=== PATIENT | male | born 1940 | race African-American/Black ===

== ENCOUNTER 2016-12-14 08:32 | Inpatient (IN) | payer MEDICARE, MEDICAID ==
[2016-12-14] MEDS ORDERED: Non-Formulary Item 1 EA (Omeprazole [Omeprazole] 20 MG) PO SCH (09:00)
[2016-12-14 09:37] VITALS: BP 153/87
[2016-12-14] MEDS ORDERED: Magnesium Hydroxide (MOM) 30 mL UDC PO PRN (16:48)
[2016-12-14] MEDS ORDERED: Maalox 30 mL Cup PO PRN (16:48)
[2016-12-14] MEDS ORDERED: Hydrocodone/APAP 5mg/325mg Tab PO PRN (16:48)
--- NOTE | 2016-12-14 16:58 | History and Physical ---
History of Present Illness - HPI Chief Complaint: ALOC HPI: 76 y/o Black male patient began to stutter. [id number] states that patient' s dementia is aslo worsening this week. 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 GI: Report: No Pertinent Hx Psych: Report: Schizophrenia Musculoskeletal: Report: No Pain Rheumatologic: Report: No pertinent Hx Infectious Disease: Report: Human Papilloma Virus Renal/: Report: No Pertinent Hx Endocrine: Report: Diabetes Dermatology: Report: No Pertinent Hx - Past Surgical History Past Surgical History: No pertinent Hx Family Medical History - Family Member Mother History Unknown: Yes Ethnicity: Non- Social History Alcohol: None Drugs: None Lives: Alone Domestic Violence: Negative Health Maintenance Health Maintenance: Cholesterol - Medications Home Medications: Home Medication Medication Instructions Recorded Type Acetaminophen [Tylenol] 650 mg PO Q4HR PRN #0 tab 11/23/15 Rx Al Hyd/Mg Hyd/Simethicone [Maalox] 30 ml PO Q4HR PRN #0 udc 11/23/15 Rx Albuterol Nebulizer 2.5mg/3mL 2.5 mg INH Q6HR PRN #0 11/23/15 Rx [Albuterol Neb UD*] Ascorbic Acid [Vitamin C] 500 mg PO DAILY #0 11/23/15 Rx Brimonidine 0.15% Ophth Marleen 1 drop EACH EYE HS #0 11/23/15 Rx [Alphagan 0.15% Ophth Soln] Collagenase [Santyl] 1 appl TP DAILY #0 appl 11/23/15 Rx Donepezil Hcl [Aricept] 10 mg PO HS #0 tab 11/23/15 Rx Escitalopram Oxalate [Lexapro] 10 mg PO DAILY #0 tab 11/23/15 Rx Lorazepam [Ativan] 0.5 mg PO Q4HR PRN #0 tab 11/23/15 Rx Multivitamin [Theragran] 1 tab PO DAILY #0 tab 11/23/15 Rx Pantoprazole [Protonix] 40 mg PO DAILY #0 11/23/15 Rx Simvastatin [Zocor*] 20 mg PO QPM #0 11/23/15 Rx Valsartan [Diovan] 160 mg PO BID #0 tab 11/23/15 Rx Zinc Sulfate 220 mg PO DAILY #0 cap 11/23/15 Rx Zolpidem Tartrate [Ambien] 5 mg PO HS PRN #0 tab 11/23/15 Rx metFORMIN [Glucophage] 500 mg PO BID #0 11/23/15 Rx risperiDONE [RisperDAL] 2.5 mg PO BID #0 bottle 11/23/15 Rx Docusate Sodium [Stool Softener] 12/14/16 History Escitalopram Oxalate [Lexapro] 20 mg PO DAILY 12/14/16 History Folic Acid [Folate*] 12/14/16 History Gabapentin [Neurontin] 300 mg PO DAILY 12/14/16 History Losartan/Hydrochlorothiazide 1 each PO 12/14/16 History [Losartan-Hctz 50-12.5 mg Tab] Omeprazole 20 mg PO 12/14/16 History Rosuvastatin Calcium 12/14/16 History - Allergies Allergies/Adverse Reactions: Allergies Allergy/AdvReac Type Severity Reaction Status Date / Time No Known Allergies Allergy Unverified 11/14/15 10:39 Review of Systems - Review of Systems Review of Systems: see hpi Constitutional: Report: No Significant, Fever, Chills, Sweats, Weakness, Malaise , Other Eyes: Denies: No Significant, Pain, Vision Change, Conjunctivae Inflammation, Eyelid Inflammation, Redness, Other ENT: Denies: No Significant, Ear Pain, Ear Discharge, Nose Pain, Nose Discharge , Nose Congestion, Mouth Pain, Mouth Swelling, Throat Pain, Throat Swelling, Other Respiratory: Denies: No Significant, Cough, Dry, Shortness of Breath, Hemoptysis , SOB with Excertion, Pleuritic Pain, Sputum, Wheezing, Other Cardiovascular: Denies: No Significant, Chest Pain, Palpitations, Orthopnea, Paroxysmal Noc. Dyspnea, Edema, Light Headedness, Other Gastrointestinal: Denies: No Significant, Nausea, Vomiting, Abdominal Pain, Diarrhea, Constipation, Melena, Hematochezia, Other Genitourinary: Denies: No Significant, Dysuria, Frequency, Incontinence, Hematuria, Retention, Other Musculoskeletal: Denies: No Significant, Neck Pain, Shoulder Pain, Arm Pain, Back Pain, Hand Pain, Leg Pain, Foot Pain, Other Skin: Denies: No Significant, Rash, Lesions, Destin, Bruising, Other Neurological: Denies: No Significant, Weakness, Numbness, Incoordination, Change in Speech, Confusion, Seizures, Other Other: Unable to assess due to mental status Physical Exam - Physical Exam HEENT: Report: Ears Nose Throat within normal limits, Pharnyx within normal limits Neck: Report: Within normal limits. Denies: Thyromegaly Cardiovascular Systems: Report: +s1/s2 noted, Regular, Rate and Rhythm, no murmurs noted Respiratory: Report: Clear to Auscultation of lung cazares, Breath Sounds are within normal limits Abdomen: Report: Non-tender to palpation, Bowel Sounds are within normal limits Back: Report: Inspection of back is within normal limits. Extremities: Report: Non-tender to palpation. Skin: Report: Color of skin is within normal limits, Warm, Dry Neuro/Psych: Report: Disoriented to name time or place (Unable to assess due to mental status) - Assessment Assessment: * AMS * HTN * DM * SCHIZOPHRENIA * ALZHEIMER'S DISEASE * R/O TIA/CVA - Plan Plan: * ADMIT TO TELE * CONTINUE HOME MEDS * NEUROLOGY: MARISELA * CARDIOLOGY: Darya ARTIS * ECHO AND CAROTID U/S
--- NOTE | 2016-12-15 04:54 | Admit Criteria Form ---
Admit Criteria Forms - Admit Criteria Diagnosis: MENTAL STATUS CHANGE Clinical Indications for Inpatient Care (Place 'X' for any and all applicable criteria): Ongoing inpatient care may be needed for 1 or more of the following(1)(2)(3)(5)( 6): [X]I. Suspected serious etiology (eg, medical disorder, BATTERY CHECKER event) of altered mental status [ ]II. Danger to self or others not manageable at lower level of care [ ]III. Grave disability (eg, inability to perform self care necessary at lower level of care) [ ]IV. Agitation or inappropriate behavior interfering with care for primary condition (eg, attempting to discontinue lines or drains prematurely, unable to cooperate with respiratory care) [ ]V. Delirium [A] [D][E] as described by 1 or more of the following(26): [ ]a) Delirium due to alcohol or sedative [F] withdrawal [ ]b) Delirium of uncertain etiology that has not responded to appropriate empiric treatment [ ]c) Delirium that prevents performance of a life-sustaining function (eg, feeding or hydrating oneself) [X]. General contraindications and/or Inappropriate clinical situations for Observational Care in patients with Mental Status Change, when ANY ONE of the following is required: [X]a) Prediction of prolongation of LOS based on ANY ONE of the following may be considered as a contraindication for observational care 2, 3, 4, 5, 6, 7, 8, 9, 10, 11 [X]i) Age > 65 yrs. [ ]ii) Patient arriving by ambulance [ ]iii) Patient with high acuity [ ]iv) Patient requiring vital sign monitoring [ ]v) Patient on IV medication [ ]b) Systolic blood pressures greater than or equal to 180mmHg 3, 12 [ ]c) Patient with altered mental status including delirium and other alteration of consciousness, (3) [ ]d) Patient whose discharge disposition will be to a fci home or rehabilitation home should not be managed in Emergency Department Observation Unit. CMS rule requires 3 days hospital stay before such placement.3,13 [ ]e) Patient with failure to thrive due to broad array of etiologies 3,16,17 [ ]f) Inability to ambulate 3,14 Extended stay beyond goal length of stay for the primary condition may be needed until ALL of the following are present(3)(5): [ ]a) Underlying medical etiology of mental status change is absent, or has been established and adequately treated [ ]b) Danger to self or others is absent or manageable at lower level of care. [ ]c) Behavior crisis management, including physical or chemical restraints, is not required or available at lower level of car [ ]d) Substance or alcohol withdrawal is absent or manageable at lower level of care. [ ]e) Behavioral symptoms (eg, agitation, somnolence, inappropriate behavior) are absent, or are manageable at lower level of care. The [facility] content created by [facility] has been revised. The portions of the content which have been revised are identified through the use of italic text or in bold, and [facility] has neither reviewed nor approved the modified material. All other unmodified content is copyright [facility]. Please see references footnoted in the original [facility] 2016
[2016-12-15 07:19] LABS: HEMATOCRIT 49.3 % (39.0-49.0); HEMOGLOBIN 16.1 gm/dL (12.6-17.4); MEAN CELL VOLUME 89.4 fl (80-99); MEAN CORPUSCULAR HEMOGLOBIN 29.1 pg (27.0-31.0); MEAN CORPUSCULAR HGB CONC 32.6 pg (28.0-36.0); MEAN PLATELET VOLUME 8.2 fl; NEUTROPHILE ABSOLUTE 3.3 Th/cmm (1.8-8.0); PLATELET COUNT 178 Th/cmm (150-400); RED BLOOD COUNT 5.51 Mil/cmm (3.80-5.80); RED CELL DISTRIBUTION WIDTH 16.6 % (11.5-20.0)
[2016-12-15 07:38] LABS: ANION GAP 10.2 (7.0-16.0); BUN - UREA NITROGEN 7 mg/dL (7-25); CALCIUM SERUM 9.6 mg/dL (8.6-10.3); CARBON DIOXIDE 27.5 mEq/L (21.0-31.0); CHLORIDE 103 mEq/L (98-107); CREATININE - SERUM 0.7 mg/dL (0.7-1.3); GLUCOSE 83 mg/dL (70-105); POTASSIUM SERUM 3.7 mEq/L (3.5-5.1); SODIUM SERUM 137 mEq/L (136-145)
[2016-12-15 08:09] LABS: WHITE BLOOD COUNT 6.7 Th/cmm (4.8-10.8)
[2016-12-15] MEDS: Hydrocodone/APAP 10 mg/325 mg Tab PO PRN ×2 (08:13→18:08)
[2016-12-15] MEDS ORDERED: VTE Chemical Prophylaxis Screen/Admission MC PRN (09:15)
[2016-12-15] MEDS: Pantoprazole 40 mg EC Tab PO SCH (09:42)
[2016-12-15] MEDS: Atorvastatin Calcium 10 MG TAB PO SCH (09:42)
--- NOTE | 2016-12-15 09:52 | General Progress Note ---
Subjective - Review of Systems Service Date: 12/15/16 Subjective: Patient is still confused. Awaiting Neurology and Cardiology evaluation. Objective - Results Result Diagrams: 12/15/16 06:12 12/15/16 06:12 Recent Labs: Laboratory Last Values WBC 6.7 Th/cmm (4.8-10.8) D 12/15/16 06:12 RBC 5.51 Mil/cmm (3.80-5.80) 12/15/16 06:12 Hgb 16.1 gm/dL (12.6-17.4) 12/15/16 06:12 Hct 49.3 % (39.0-49.0) H 12/15/16 06:12 MCV 89.4 fl (80-99) 12/15/16 06:12 MCH 29.1 pg (27.0-31.0) 12/15/16 06:12 MCHC Differential 32.6 pg (28.0-36.0) 12/15/16 06:12 RDW 16.6 % (11.5-20.0) 12/15/16 06:12 Plt Count 178 Th/cmm (150-400) 12/15/16 06:12 MPV 8.2 fl 12/15/16 06:12 Sodium 137 mEq/L (136-145) 12/15/16 06:12 Potassium 3.7 mEq/L (3.5-5.1) 12/15/16 06:12 Chloride 103 mEq/L (98-107) 12/15/16 06:12 Carbon Dioxide 27.5 mEq/L (21.0-31.0) 12/15/16 06:12 Anion Gap 10.2 (7.0-16.0) 12/15/16 06:12 BUN 7 mg/dL (7-25) 12/15/16 06:12 Creatinine 0.7 mg/dL (0.7-1.3) 12/15/16 06:12 Est GFR ( Amer) TNP 12/15/16 06:12 Est GFR (Non-Af Amer) TNP 12/15/16 06:12 BUN/Creatinine Ratio 10.0 12/15/16 06:12 Glucose 83 mg/dL (70-105) 12/15/16 06:12 Calcium 9.6 mg/dL (8.6-10.3) 12/15/16 06:12 - Physical Exam Vitals and I&O: Vital Signs Temp 98.8 F 12/15/16 07:48 Pulse 77 12/15/16 09:42 Resp 19 12/15/16 07:48 BP 150/100 12/15/16 09:42 Pulse Ox 99 12/15/16 07:48 Intake & Output 12/14/16 12/15/16 12/15/16 18:59 06:59 18:59 Intake Total 240 200 Balance 240 200 Weight (lbs) 107.955 kg 107.774 kg Intake: Oral 240 200 Other: # Voids 3 # Bowel Movements 0 Active Medications: Current Medications Acetaminophen (Tylenol) 650 mg PO Q6H PRN PRN Reason: Mild Pain/Headache/T above 101 Stop: 02/12/17 16:47 Acetaminophen/Hydrocodone Bitart ([place] 10 Mg/325 Mg) 1 tab PO Q6H PRN PRN Reason: Pain (Severe) Stop: 02/12/17 16:47 Last Admin: 12/15/16 08:13 Dose: 1 tab Acetaminophen/Hydrocodone Bitart ([place] 5mg/325mg) 1 tab PO Q6H PRN PRN Reason: Moderate Pain Stop: 02/12/17 16:47 Al Hydrox/Mg Hydrox/Simethicone (Maalox) 30 ml PO Q6H PRN PRN Reason: Dyspepsia Stop: 02/12/17 16:47 Atorvastatin Calcium (Lipitor) 10 mg PO DAILY [facility] Stop: 02/13/17 08:59 Last Admin: 12/15/16 09:42 Dose: 10 mg Brimonidine Tartrate (Alphagan 0.15% Ophth Soln) 1 drop EACH EYE HS [facility] Stop: 02/12/17 20:59 Last Admin: 12/14/16 20:03 Dose: 1 drop Carvedilol (Coreg) 6.25 mg PO BID [facility] Stop: 02/13/17 08:59 Last Admin: 12/15/16 09:42 Dose: 6.25 mg Docusate Sodium (Colace) 250 mg PO DAILY [facility] Stop: 02/12/17 08:59 Last Admin: 12/15/16 08:14 Dose: 250 mg Escitalopram Oxalate (Lexapro) 20 mg PO DAILY [facility] PRN Reason: Protocol Stop: 02/12/17 08:59 Last Admin: 12/15/16 08:14 Dose: 20 mg Folic Acid (Folate) 1 mg PO DAILY [facility] Stop: 02/12/17 08:59 Last Admin: 12/15/16 08:14 Dose: 1 mg Gabapentin (Neurontin) 300 mg PO BID [facility] Stop: 02/13/17 08:59 Last Admin: 12/15/16 08:15 Dose: 300 mg Lorazepam (Ativan) 1 mg PO Q6H PRN; Protocol PRN Reason: Anxiety/Agitation Stop: 02/12/17 16:47 Magnesium Hydroxide (Milk Of Magnesia) 30 ml PO HS PRN PRN Reason: Constipation Stop: 02/12/17 16:47 Miscellaneous (Losartan/Hydrochlorothiazide [Losartan-Hctz 50-12.5 Mg Tab]) 1 each PO DAILY [facility] Stop: 02/12/17 08:59 Miscellaneous (Vte Chemical Prophylaxis Screen/ Admission) 1 ea [facility] PRN PRN PRN Reason: PROTOCOL Stop: 02/13/17 09:14 Ondansetron HCl (Zofran Odt) 4 mg PO Q6H PRN PRN Reason: Nausea / Vomiting Stop: 02/12/17 16:47 Pantoprazole Sodium (Protonix) 40 mg PO DAILY [facility] Stop: 02/13/17 08:59 Last Admin: 12/15/16 09:42 Dose: 40 mg Sodium Chloride (Saline Flush) 10 ml IV QSHIFT [facility] Stop: 02/12/17 19:59 Last Admin: 12/15/16 09:42 Dose: 10 ml General: Other (Confused) Cardiovascular: Regular rate, Normal S1, Normal S2 Lungs: Clear to auscultation, Normal air movement Abdomen: Bowel sounds, Soft - Procedures Procedures: Procedures Procedure Code Date GROUP PSYCHOTHERAPY 58596 11/07/15 GROUP PSYCHOTHERAPY GZHZZZZ 11/07/15 Assessment/Plan - Problem List Patient Problems: All Active Problems COPD (chronic obstructive pulmonary disease) (Acute) Dementia (Acute) F03.90 Diabetes mellitus (Acute) E11.9 Hypertension (Acute) I10 Schizophrenia (Acute) F20.9 - Assessment Assessment: * Continue current medications and treatment * Obtain labs in am * Further per Neurology and Cardiology
[2016-12-15] MEDS ORDERED: Diltiazem 5 mg/mL 5mL Vial IVP PRN (11:49)
[2016-12-16 06:06] LABS: RED BLOOD COUNT 5.27 Mil/cmm (3.80-5.80)
[2016-12-16 06:10] LABS: HEMOGLOBIN 15.7 gm/dL (12.6-17.4); MEAN CELL VOLUME 89.1 fl (80-99); MEAN CORPUSCULAR HEMOGLOBIN 29.8 pg (27.0-31.0); MEAN CORPUSCULAR HGB CONC 33.4 pg (28.0-36.0); MEAN PLATELET VOLUME 7.9 fl; PLATELET COUNT 179 Th/cmm (150-400); RED CELL DISTRIBUTION WIDTH 16.5 % (11.5-20.0)
[2016-12-16 06:14] LABS: WHITE BLOOD COUNT 8.3 Th/cmm (4.8-10.8)
[2016-12-16 06:28] LABS: ANION GAP 14.4 (7.0-16.0); BUN - UREA NITROGEN 13 mg/dL (7-25); BUN/CREATININE RATIO 16.3; CALCIUM SERUM 9.6 mg/dL (8.6-10.3); CARBON DIOXIDE 25.3 mEq/L (21.0-31.0); CHLORIDE 102 mEq/L (98-107); CREATININE - SERUM 0.8 mg/dL (0.7-1.3); GLUCOSE 71 mg/dL (70-105); POTASSIUM SERUM 3.7 mEq/L (3.5-5.1); SODIUM SERUM 138 mEq/L (136-145)
[2016-12-16 06:50] LABS: EOSINOPHIL 5 % (0-5); NEUTROPHILS 57 % (40-80); TOTAL CELLS COUNTED 100
[2016-12-16 06:51] LABS: PLATELET ESTIMATE ADEQUATE (NORMAL); PLATELET MORPHOLOGY NORMAL (NORMAL)
[2016-12-16] MEDS: Atorvastatin Calcium 10 MG TAB PO SCH (09:23)
[2016-12-16] MEDS: Pantoprazole 40 mg EC Tab PO SCH (09:23)
[2016-12-16] MEDS: Hydrocodone/APAP 10 mg/325 mg Tab PO PRN (09:25)
[2016-12-16] MEDS ORDERED: Haloperidol Lactate 5 mg/mL 1mL Vial IM STA (11:21)
--- NOTE | 2017-01-06 16:36 | Discharge Summary ---
General Discharge Summary - Discharge Summary Date of Admission: 12/14/16 Patient Problems: All Active Problems COPD (chronic obstructive pulmonary disease) (Acute) Dementia (Acute) F03.90 Diabetes mellitus (Acute) E11.9 Hypertension (Acute) I10 Schizophrenia (Acute) F20.9 Discharge Date: 12/16/16 Discharge Diagnosis: COPD (chronic obstructive pulmonary disease) (Acute) Laboratory Findings: Laboratory Tests 12/15/16 12/15/16 12/16/16 06:12 06:12 05:28 WBC 6.7 D 8.3 D RBC 5.51 5.27 Hgb 16.1 15.7 Hct 49.3 H 47.0 MCV 89.4 89.1 MCH 29.1 29.8 MCHC Differential 32.6 33.4 RDW 16.6 16.5 Plt Count 178 179 MPV 8.2 7.9 Neutrophils (Manual) 57 Lymphocytes 26 Monocytes 12 H Eosinophils 5 Platelet Estimate ADEQUATE Platelet Morphology NORMAL RBC Morph Micro Appear NORMAL Sodium 137 Potassium 3.7 Chloride 103 Carbon Dioxide 27.5 Anion Gap 10.2 BUN 7 Creatinine 0.7 Est GFR ( Amer) TNP Est GFR (Non-Af Amer) TNP BUN/Creatinine Ratio 10.0 Glucose 83 Calcium 9.6 12/16/16 05:28 WBC RBC Hgb Hct MCV MCH MCHC Differential RDW Plt Count MPV Neutrophils (Manual) Lymphocytes Monocytes Eosinophils Platelet Estimate Platelet Morphology RBC Morph Micro Appear Sodium 138 Potassium 3.7 Chloride 102 Carbon Dioxide 25.3 Anion Gap 14.4 BUN 13 Creatinine 0.8 Est GFR ( Amer) TNP Est GFR (Non-Af Amer) TNP BUN/Creatinine Ratio 16.3 Glucose 71 Calcium 9.6 Hospital Course: * Admit to Tele * Continue home meds * Cardiology Consult * Neurology Consult * Psychiatry Consult Treatment: See chart Condition at Discharge: Stable Disposition: Acute Care w/in this hosp Home Medications: Home Medication Medication Instructions Recorded Type Acetaminophen [Tylenol] 650 mg PO Q4HR PRN tab 01/03/17 Rx Al Hyd/Mg Hyd/Simethicone [Maalox] 30 ml PO Q4HR PRN udc 01/03/17 Rx Albuterol Nebulizer 2.5mg/3mL 2.5 mg HHN Q6HR PRN each 01/03/17 Rx [Albuterol Neb UD*] Ascorbic Acid [Vitamin C] 500 mg PO DAILY tab 01/03/17 Rx Atorvastatin Calcium [Lipitor] 10 mg PO DAILY tab 01/03/17 Rx Balsam Gabrielle[employer] Oil [Venelex] 1 appl TP DAILY appl 01/03/17 Rx Brimonidine 0.15% Ophth Marleen 1 drop EACH EYE HS 01/03/17 Rx [Alphagan 0.15% Ophth Soln] Carvedilol [Coreg] 3.125 mg PO BID tab 01/03/17 Rx Docusate Sodium [Colace] 250 mg PO DAILY PRN sgl 01/03/17 Rx Donepezil Hcl [Aricept] 10 mg PO HS tab 01/03/17 Rx Escitalopram Oxalate [Lexapro] 10 mg PO DAILY tab 01/03/17 Rx Folic Acid [Folate*] 1 mg PO DAILY tab 01/03/17 Rx Gabapentin [Neurontin*] 300 mg PO DAILY cap 01/03/17 Rx Hydrochlorothiazide [Hctz*] 12.5 mg PO DAILY tab 01/03/17 Rx Losartan Potassium [Cozaar] 50 mg PO DAILY tab 01/03/17 Rx Magnesium Hydroxide [Milk of 30 ml PO DAILY PRN udc 01/03/17 Rx Magnesia] Memantine [Namenda] 5 mg PO BID tab 01/03/17 Rx Multivitamin [Theragran] 1 tab PO DAILY tab 01/03/17 Rx Ondansetron [Zofran Odt] 4 mg PO Q6H PRN odt 01/03/17 Rx Pantoprazole [Protonix] 40 mg PO DAILY ect 01/03/17 Rx QUEtiapine Fumarate [SEROquel] 25 mg PO BID tab 01/03/17 Rx Zinc Sulfate 220 mg PO DAILY cap 01/03/17 Rx cloNIDine HCl [Catapres] 0.1 mg PO Q4HR PRN tab 01/03/17 Rx Inpatient Medications: See MAR Discharge Diet: 2 Gram Sodium Consults and Follow-Up: Benjamin Keller [Primary Care Provider] - Consulting Speciality: Psychology Instructions: Psychosis
== END 2016-12-16 11:47 | DRG 192 ==
LOC: TELE 08:32 → MSI 12-16 10:08 → UNDODISIN 12-16 11:04
PROVIDERS: ADMIT Preventive Medicine Preventive Medicine/Occupational Environmental Medicine; ATTEND Preventive Medicine Preventive Medicine/Occupational Environmental Medicine
DX: J44.1 Chronic obstructive pulmonary disease with (acute) exacerbation (principal); G30.9 Alzheimer's disease, unspecified; E11.9 Type 2 diabetes mellitus without complications; F20.9 Schizophrenia, unspecified; F02.80 Dementia in other diseases classified elsewhere, unspecified severity, without behavioral disturbance, psychotic disturbance, mood disturbance, and anxiety; I10 Essential (primary) hypertension; E78.5 Hyperlipidemia, unspecified; Z79.84 Long term (current) use of oral hypoglycemic drugs
CPT/HCPCS: 36415-UA; 80048-TC; 85007-TC; 85027-TC; J1200; J1630; J2060; X3401; Z7610

== ENCOUNTER 2016-12-16 11:47 | Inpatient (IN) | payer MEDICARE, MEDICAID ==
[2016-12-16 13:08] VITALS: BP 93/32
[2016-12-16] MEDS ORDERED: Maalox 30 mL Cup PO PRN (13:43)
[2016-12-16] MEDS ORDERED: Albuterol Nebulizer 2.5mg/3mL HHN PRN (13:43)
[2016-12-16] MEDS ORDERED: Hydrocodone/APAP 5mg/325mg Tab PO PRN (14:38)
[2016-12-16] MEDS ORDERED: Pneumococcal Vaccine 0.5 mL Vial IM ONE (15:51)
[2016-12-17] MEDS ORDERED: Non-Formulary Item 1 EA (Omeprazole [Omeprazole] 20 MG) PO SCH (09:00)
[2016-12-17] MEDS ORDERED: Atorvastatin Calcium 10 MG TAB PO SCH ×2 (09:00)
[2016-12-17] MEDS: Pantoprazole 40 mg EC Tab PO SCH (09:59)
[2016-12-17] MEDS: Multivitamin Tab PO SCH (09:59)
[2016-12-17] MEDS: Atorvastatin Calcium 10 MG TAB PO SCH (09:59)
--- NOTE | 2016-12-17 16:41 | Psych History & Physical ---
[facility] History & Physical - Date of Admission Date of Admission: 12/17/16 - Identifying Data Identifying Data: Patient is a Get [age] year old male deciding at home if you get for the afternoon of consciousness. Chief complaint "I do not know." History of present illness:This is the first psychiatric hospitalization for this 76 is year old who has been agitated and displaying aggressive behavior. Patient has been hospitalized on the medical unit for stimulationFollowingMedical clearance he [facility]Patient has to be given Haloperidol2 mg Benadryl 50 mg and One mg of Ativan Im to contain the behavior . he is not able to provide much information. - Chief Complaint Chief Complaint: See above. Patient Problems: Current Active Problems Dementia (Acute) Informant: Chart Review, Patient - History of Present Illness History of Present Illness: See above. - Psychiatric Evaluation Psychiatric Evaluation: Agitated behavior Psych General Appearance: Older than stated age, Disheveled Psych Behavior: Alert, Uncooperative, Agitated Psych Speech: Mumbled, Loud Psych Mood: Angry, Frustrated, Hostile, Irritable Psych Affect: Labile Psych Thought Process: Disjointed, Tangential Psych Cognition: Confused, Short term memory impairment Psych Insight: Impaired Psych Judgement: Impaired - Past Medical History Psych: Depression, Psychosis Current Medications: Current Medications Acetaminophen (Tylenol) 650 mg PO Q4HR PRN PRN Reason: Mild Pain/Fever Stop: 02/14/17 13:42 Acetaminophen/Hydrocodone Bitart ([place] 5mg/325mg) 1 tab PO Q6H PRN PRN Reason: moderate pain Stop: 02/14/17 14:37 Al Hydrox/Mg Hydrox/Simethicone (Maalox) 30 ml PO Q4HR PRN PRN Reason: GI DISTRESS Stop: 02/14/17 13:42 Albuterol Sulfate (Albuterol 2.5mg/3ml Neb Ud) 2.5 mg HHN Q6HR PRN PRN Reason: shortness of breath Stop: 02/14/17 13:42 Ascorbic Acid (Vitamin C) 500 mg PO DAILY [facility] Stop: 02/15/17 08:59 Last Admin: 12/17/16 09:59 Dose: 500 mg Atorvastatin Calcium (Lipitor) 10 mg PO DAILY [facility] PRN Reason: Protocol Stop: 02/15/17 08:59 Last Admin: 12/17/16 09:59 Dose: 10 mg Brimonidine Tartrate (Alphagan 0.15% Oph Soln) 1 drop EACH EYE HS [facility] Stop: 02/14/17 20:59 Last Admin: 12/16/16 20:51 Dose: Not Given Carvedilol (Coreg) 3.125 mg PO BID [facility] Stop: 02/14/17 16:59 Last Admin: 12/17/16 10:00 Dose: 3.125 mg Clonidine HCl (Catapres) 0.1 mg PO Q4HR PRN PRN Reason: SBP ABOVE 160 Docusate Sodium (Colace) 250 mg PO DAILY PRN PRN Reason: Constipation Escitalopram Oxalate (Lexapro) 10 mg PO DAILY [facility] PRN Reason: Protocol Stop: 02/16/17 08:59 Folic Acid (Folate) 1 mg PO DAILY [facility] Stop: 02/15/17 08:59 Last Admin: 12/17/16 09:59 Dose: 1 mg Gabapentin (Neurontin) 300 mg PO DAILY [facility] Stop: 02/15/17 08:59 Last Admin: 12/17/16 09:59 Dose: 300 mg Hydrochlorothiazide (Hctz) 12.5 mg PO DAILY [facility] Stop: 02/15/17 08:59 Last Admin: 12/17/16 09:59 Dose: 12.5 mg Lorazepam (Ativan) 0.5 mg PO Q4HR PRN; Protocol PRN Reason: anxiety Stop: 02/15/17 10:30 Losartan Potassium (Cozaar) 50 mg PO DAILY [facility] Stop: 02/15/17 08:59 Last Admin: 12/17/16 10:00 Dose: 50 mg Miscellaneous (Clinical Monitoring) 1 ea [facility] DAILY PRN PRN Reason: RENAL-METFORMIN Stop: 02/14/17 14:33 Multivitamins/Vitamin C (Theragran) 1 tab PO DAILY [facility] Stop: 02/15/17 08:59 Last Admin: 12/17/16 09:59 Dose: 1 tab Ondansetron HCl (Zofran Odt) 4 mg PO Q6H PRN PRN Reason: Nausea / Vomiting Stop: 02/14/17 14:36 Pantoprazole Sodium (Protonix) 40 mg PO DAILY [facility] Stop: 02/15/17 08:59 Last Admin: 12/17/16 09:59 Dose: 40 mg Quetiapine Fumarate (Seroquel) 25 mg PO BID [facility] PRN Reason: Protocol Stop: 02/15/17 16:59 Zinc Sulfate (Zinc Sulfate) 220 mg PO DAILY [facility] Stop: 02/15/17 08:59 Last Admin: 12/17/16 09:59 Dose: 220 mg Allergies/Adverse Reactions: Allergies Allergy/AdvReac Type Severity Reaction Status Date / Time No Known Allergies Allergy Unverified 11/14/15 10:39 - Family History Family History: No Significant - Social History Social History: Living with his family - Mental Status Examination Mental Status Examination: See above. - ROS Psychological ROS: Hostility, Memory difficulties, Mood swings Neurological: Memory Loss - Physical Examination Physical Exam: As per PCP - Vitals and I&O Vitals and I&O: Vital Signs Temp 97.8 F 12/17/16 14:00 Pulse 86 12/17/16 14:00 Resp 18 12/17/16 14:00 BP 114/75 12/17/16 14:00 Pulse Ox 98 12/17/16 14:00 Intake & Output 12/16/16 12/17/16 12/17/16 18:59 06:59 18:59 Intake Total 120 Balance 120 Weight (lbs) 92.533 kg Intake: Oral 120 Other: # Voids 1 # Bowel Movements 0 - Impressions Impressions: Psychosis unspecified. Bryant II: None Bryant III: As per Dr. campbell. - Treatment/Plan Patient Problems: All Active Problems Dementia (Acute) F03.90 COPD (chronic obstructive pulmonary disease) (Acute) Diabetes mellitus (Acute) E11.9 Hypertension (Acute) I10 Schizophrenia (Acute) F20.9 Treatment/Plan: Continue current meds and follow up.
[2016-12-17] MEDS: Venelex 60gm Tube TP SCH (16:56)
--- NOTE | 2016-12-18 00:08 | General Progress Note ---
Subjective - Review of Systems Service Date: 12/16/16 Subjective: Patient is still confused. Patient has been accepted to [facility] Unit. Patient having elevated with heart rate. Objective - Physical Exam Vitals and I&O: Vital Signs Temp 97.6 F 12/17/16 20:00 Pulse 77 12/17/16 20:00 Resp 19 12/17/16 20:00 BP 108/61 12/17/16 20:00 Pulse Ox 98 12/17/16 20:00 Intake & Output 12/17/16 12/17/16 12/18/16 06:59 18:59 06:59 Intake Total 120 1200 Balance 120 1200 Intake: Oral 120 1200 Other: # Voids 1 # Bowel Movements 0 1 Active Medications: Current Medications Acetaminophen (Tylenol) 650 mg PO Q4HR PRN PRN Reason: Mild Pain/Fever Stop: 02/14/17 13:42 Acetaminophen/Hydrocodone Bitart ([place] 5mg/325mg) 1 tab PO Q6H PRN PRN Reason: moderate pain Stop: 02/14/17 14:37 Al Hydrox/Mg Hydrox/Simethicone (Maalox) 30 ml PO Q4HR PRN PRN Reason: GI DISTRESS Stop: 02/14/17 13:42 Albuterol Sulfate (Albuterol 2.5mg/3ml Neb Ud) 2.5 mg HHN Q6HR PRN PRN Reason: shortness of breath Stop: 02/14/17 13:42 Ascorbic Acid (Vitamin C) 500 mg PO DAILY [facility] Stop: 02/15/17 08:59 Last Admin: 12/17/16 09:59 Dose: 500 mg Atorvastatin Calcium (Lipitor) 10 mg PO DAILY [facility] PRN Reason: Protocol Stop: 02/15/17 08:59 Last Admin: 12/17/16 09:59 Dose: 10 mg Brimonidine Tartrate (Alphagan 0.15% Ophth Soln) 1 drop EACH EYE HS [facility] Stop: 02/14/17 20:59 Last Admin: 12/17/16 20:47 Dose: 1 drop Carvedilol (Coreg) 3.125 mg PO BID [facility] Stop: 02/14/17 16:59 Last Admin: 12/17/16 17:46 Dose: Not Given Clonidine HCl (Catapres) 0.1 mg PO Q4HR PRN PRN Reason: SBP ABOVE 160 Docusate Sodium (Colace) 250 mg PO DAILY PRN PRN Reason: Constipation Escitalopram Oxalate (Lexapro) 10 mg PO DAILY [facility] PRN Reason: Protocol Stop: 02/16/17 08:59 Folic Acid (Folate) 1 mg PO DAILY [facility] Stop: 02/15/17 08:59 Last Admin: 12/17/16 09:59 Dose: 1 mg Gabapentin (Neurontin) 300 mg PO DAILY [facility] Stop: 02/15/17 08:59 Last Admin: 12/17/16 09:59 Dose: 300 mg Hydrochlorothiazide (Hctz) 12.5 mg PO DAILY [facility] Stop: 02/15/17 08:59 Last Admin: 12/17/16 09:59 Dose: 12.5 mg Lorazepam (Ativan) 0.5 mg PO Q4HR PRN; Protocol PRN Reason: anxiety Stop: 02/15/17 10:30 Losartan Potassium (Cozaar) 50 mg PO DAILY [facility] Stop: 02/15/17 08:59 Last Admin: 12/17/16 10:00 Dose: 50 mg Miscellaneous (Clinical Monitoring) 1 ea [facility] DAILY PRN PRN Reason: RENAL-METFORMIN Stop: 02/14/17 14:33 Multivitamins/Vitamin C (Theragran) 1 tab PO DAILY [facility] Stop: 02/15/17 08:59 Last Admin: 12/17/16 09:59 Dose: 1 tab Ondansetron HCl (Zofran Odt) 4 mg PO Q6H PRN PRN Reason: Nausea / Vomiting Stop: 02/14/17 14:36 Pantoprazole Sodium (Protonix) 40 mg PO DAILY [facility] Stop: 02/15/17 08:59 Last Admin: 12/17/16 09:59 Dose: 40 mg Quetiapine Fumarate (Seroquel) 25 mg PO BID [facility] PRN Reason: Protocol Stop: 02/15/17 16:59 Last Admin: 12/17/16 17:47 Dose: 25 mg Zinc Sulfate (Zinc Sulfate) 220 mg PO DAILY [facility] Stop: 02/15/17 08:59 Last Admin: 12/17/16 09:59 Dose: 220 mg General: no Alert, no Oriented x3, no Cooperative Cardiovascular: Normal S1, Normal S2 Lungs: Clear to auscultation, Normal air movement Abdomen: Bowel sounds, Soft Psych/Mental Status: Mood NL, no Mental status NL - Procedures Procedures: Procedures Procedure Code Date GROUP PSYCHOTHERAPY 30040 11/07/15 GROUP PSYCHOTHERAPY GZHZZZZ 11/07/15 Assessment/Plan - Problem List Patient Problems: All Active Problems Dementia (Acute) F03.90 Schizophrenia (Acute) F20.9 COPD (chronic obstructive pulmonary disease) (Acute) Diabetes mellitus (Acute) E11.9 Hypertension (Acute) I10 - Assessment Assessment: Dementia (Acute) F03.90 Schizophrenia (Acute) F20.9 COPD (chronic obstructive pulmonary disease) (Acute) Diabetes mellitus (Acute) E11.9 Hypertension (Acute) I10 Debility - Plan Plan: * Continue current medications * Obtan labs in * Awaiting clearance by Cardiology and Neurology
--- NOTE | 2016-12-18 00:19 | History and Physical ---
History of Present Illness - HPI Chief Complaint: Altered Mental Status HPI: [facility] See previous H&P from acute unit. Note: H&P Done on Vital Signs: Last Vital Signs Temp 97.6 F 12/17/16 20:00 Pulse 77 12/17/16 20:00 Resp 19 12/17/16 20:00 BP 108/61 12/17/16 20:00 Pulse Ox 98 12/17/16 20:00 Past Medical History Cardiovascular: Report: HTN, Hyperlipidemia Pulmonary: Report: No Pertinent Hx HEAD SAWYER: Report: Dementia, TIA GI: Report: No Pertinent Hx, Constipation Psych: Report: Depression, Psychosis Musculoskeletal: Report: No Pertinent Hx Rheumatologic: Report: No pertinent Hx Infectious Disease: Report: No Pertinent Hx Renal/: Report: No Pertinent Hx - Past Surgical History Past Surgical History: No pertinent Hx Family Medical History - Family Member Mother History Unknown: Yes Ethnicity: Non- Social History Smoke: No Alcohol: None Drugs: None Lives: With Family - Medications Home Medications: Home Medication Medication Instructions Recorded Type Acetaminophen [Tylenol] 650 mg PO Q4HR PRN #0 tab 11/23/15 Rx Al Hyd/Mg Hyd/Simethicone [Maalox] 30 ml PO Q4HR PRN #0 udc 11/23/15 Rx Albuterol Nebulizer 2.5mg/3mL 2.5 mg INH Q6HR PRN #0 11/23/15 Rx [Albuterol Neb UD*] Ascorbic Acid [Vitamin C] 500 mg PO DAILY #0 11/23/15 Rx Brimonidine 0.15% Ophth Marleen 1 drop EACH EYE HS #0 11/23/15 Rx [Alphagan 0.15% Ophth Soln] Collagenase [Santyl] 1 appl TP DAILY #0 appl 11/23/15 Rx Donepezil Hcl [Aricept] 10 mg PO HS #0 tab 11/23/15 Rx Escitalopram Oxalate [Lexapro] 10 mg PO DAILY #0 tab 11/23/15 Rx Lorazepam [Ativan] 0.5 mg PO Q4HR PRN #0 tab 11/23/15 Rx Multivitamin [Theragran] 1 tab PO DAILY #0 tab 11/23/15 Rx Pantoprazole [Protonix] 40 mg PO DAILY #0 11/23/15 Rx Simvastatin [Zocor*] 20 mg PO QPM #0 11/23/15 Rx Valsartan [Diovan] 160 mg PO BID #0 tab 11/23/15 Rx Zinc Sulfate 220 mg PO DAILY #0 cap 11/23/15 Rx Zolpidem Tartrate [Ambien] 5 mg PO HS PRN #0 tab 11/23/15 Rx metFORMIN [Glucophage] 500 mg PO BID #0 11/23/15 Rx risperiDONE [RisperDAL] 2.5 mg PO BID #0 bottle 11/23/15 Rx Docusate Sodium [Stool Softener] 12/14/16 History Escitalopram Oxalate [Lexapro] 20 mg PO DAILY 12/14/16 History Folic Acid [Folate*] 12/14/16 History Gabapentin [Neurontin] 300 mg PO DAILY 12/14/16 History Losartan/Hydrochlorothiazide 1 each PO 12/14/16 History [Losartan-Hctz 50-12.5 mg Tab] Omeprazole 20 mg PO 12/14/16 History Rosuvastatin Calcium 12/14/16 History - Allergies Allergies/Adverse Reactions: Allergies Allergy/AdvReac Type Severity Reaction Status Date / Time No Known Allergies Allergy Unverified 11/14/15 10:39 Review of Systems - Review of Systems Constitutional: Denies: Fever, Chills, Sweats, Weakness, Malaise, Other Eyes: Report: Vision Change ENT: Denies: Ear Pain, Ear Discharge, Nose Pain, Nose Discharge, Nose Congestion , Mouth Pain, Mouth Swelling, Throat Pain, Throat Swelling, Other Respiratory: Denies: Cough, Dry, Shortness of Breath, Hemoptysis, SOB with Excertion, Pleuritic Pain, Sputum, Wheezing Cardiovascular: Denies: Chest Pain, Palpitations, Orthopnea, Paroxysmal Noc. Dyspnea, Edema, Light Headedness, Other Gastrointestinal: Denies: Nausea, Vomiting, Abdominal Pain, Diarrhea, Constipation, Melena, Hematochezia, Other Genitourinary: Denies: Other Musculoskeletal: Denies: Neck Pain, Shoulder Pain, Arm Pain, Back Pain, Hand Pain, Leg Pain, Foot Pain, Other Skin: Report: Other. Denies: Rash, Lesions, [place], Bruising Neurological: Report: Weakness, Confusion Physical Exam - Physical Exam HEENT: Report: Ears Nose Throat Within Normal Limits Neck: Report: WNL Cardiovascular Systems: Report: Regular, Rate and Rhythm, no murmurs noted Respiratory: Report: Clear to Auscultation of lung cazares, Breath Sounds are within normal limits Abdomen: Report: Non-tender to palpation, Bowel Sounds are within normal limits Back: Report: Inspection of back is within normal limits. Extremities: Report: Non-tender to palpation., Patient had full range of motion , No pedal edema was noted on inspection Skin: Report: Color of skin is within normal limits, Warm, Dry, No Rashes noted of the skin Neuro/Psych: Report: Depressed affect, Weakness or sensory loss noted. - Assessment Assessment: Dementia (Acute) F03.90 Schizophrenia (Acute) F20.9 COPD (chronic obstructive pulmonary disease) (Acute) Diabetes mellitus (Acute) E11.9 Hypertension (Acute) I10 Debility - Plan Plan: * Continue current medications * Obtan labs in * Awaiting clearance by Cardiology and Neurology
[2016-12-18] MEDS: Pantoprazole 40 mg EC Tab PO SCH (09:37)
[2016-12-18] MEDS: Atorvastatin Calcium 10 MG TAB PO SCH (09:37)
[2016-12-18] MEDS: Multivitamin Tab PO SCH (09:37)
--- NOTE | 2016-12-18 09:56 | Psych Progress Note ---
[facility] Psych Progress Note - Intro Date of Progress Note: 12/18/16 - Assessment Assessment: Patient is still having agitated behavior - Vitals, I&O Vitals: Vital Signs - 24 hr 12/17/16 12/17/16 12/17/16 09:59 10:00 14:00 Temp 97.8 F HR 78 86 RR 18 BP 137/75 137/75 114/75 O2 Sat % 98 12/17/16 12/17/16 12/18/16 17:46 20:00 06:26 Temp 97.6 F 97.8 F HR 85 77 71 RR 19 19 BP 109/72 108/61 121/73 O2 Sat % 98 96 12/18/16 12/18/16 09:40 09:41 Temp HR 71 RR BP 121/73 127/73 O2 Sat % I&O: Intake & Output 12/16/16 12/17/16 12/18/16 12/19/16 06:59 06:59 06:59 06:59 Intake Total 120 1320 Balance 120 1320 Weight (lbs) 92.533 kg - Objective Psych General Appearance: Report: No acute distress Psych Behavior: Report: Alert Psych Speech: Report: Normal in Rate and amount Psych Mood: Report: Anxious, Depressed Psych Affect: Report: Anxious Psych Thought Process: Report: Circumstantial Psych Cognition: Report: Confused Psych Insight: Report: Impaired Psych Judgement: Report: Impaired - Plan Plan: Patient to continue current medications as ordered. Family session is going to be contacted. Patient since is requesting placement is family is going to be involved in the treatment plan - Review of Relevant Data Review of Relevant Data: I have reviewed the following items and time carlee (where applicable) has been applied. Psych Data Reviewed: Meds - Diagnosis Diagnosis: Current Active Problems Dementia (Acute) - Medications Current Medications: Current Medications Acetaminophen (Tylenol) 650 mg PO Q4HR PRN PRN Reason: Mild Pain/Fever Stop: 02/14/17 13:42 Acetaminophen/Hydrocodone Bitart ([place] 5mg/325mg) 1 tab PO Q6H PRN PRN Reason: moderate pain Stop: 02/14/17 14:37 Al Hydrox/Mg Hydrox/Simethicone (Maalox) 30 ml PO Q4HR PRN PRN Reason: GI DISTRESS Stop: 02/14/17 13:42 Albuterol Sulfate (Albuterol 2.5mg/3ml Neb Ud) 2.5 mg HHN Q6HR PRN PRN Reason: shortness of breath Stop: 02/14/17 13:42 Ascorbic Acid (Vitamin C) 500 mg PO DAILY [facility] Stop: 02/15/17 08:59 Last Admin: 12/18/16 09:37 Dose: 500 mg Atorvastatin Calcium (Lipitor) 10 mg PO DAILY [facility] PRN Reason: Protocol Stop: 02/15/17 08:59 Last Admin: 12/18/16 09:37 Dose: 10 mg Brimonidine Tartrate (Alphagan 0.15% Ophth Soln) 1 drop EACH EYE HS [facility] Stop: 02/14/17 20:59 Last Admin: 12/17/16 20:47 Dose: 1 drop Carvedilol (Coreg) 3.125 mg PO BID [facility] Stop: 02/14/17 16:59 Last Admin: 12/18/16 09:40 Dose: 3.125 mg Clonidine HCl (Catapres) 0.1 mg PO Q4HR PRN PRN Reason: SBP ABOVE 160 Docusate Sodium (Colace) 250 mg PO DAILY PRN PRN Reason: Constipation Escitalopram Oxalate (Lexapro) 10 mg PO DAILY [facility] PRN Reason: Protocol Stop: 02/16/17 08:59 Last Admin: 12/18/16 09:37 Dose: 10 mg Folic Acid (Folate) 1 mg PO DAILY [facility] Stop: 02/15/17 08:59 Last Admin: 12/18/16 09:37 Dose: 1 mg Gabapentin (Neurontin) 300 mg PO DAILY [facility] Stop: 02/15/17 08:59 Last Admin: 12/18/16 09:37 Dose: 300 mg Hydrochlorothiazide (Hctz) 12.5 mg PO DAILY [facility] Stop: 02/15/17 08:59 Last Admin: 12/18/16 09:41 Dose: 12.5 mg Lorazepam (Ativan) 0.5 mg PO Q4HR PRN; Protocol PRN Reason: anxiety Stop: 02/15/17 10:30 Losartan Potassium (Cozaar) 50 mg PO DAILY [facility] Stop: 02/15/17 08:59 Last Admin: 12/18/16 09:40 Dose: 50 mg Miscellaneous (Clinical Monitoring) 1 ea MC DAILY PRN PRN Reason: RENAL-METFORMIN Stop: 02/14/17 14:33 Multivitamins/Vitamin C (Theragran) 1 tab PO DAILY [facility] Stop: 02/15/17 08:59 Last Admin: 12/18/16 09:37 Dose: 1 tab Ondansetron HCl (Zofran Odt) 4 mg PO Q6H PRN PRN Reason: Nausea / Vomiting Stop: 02/14/17 14:36 Pantoprazole Sodium (Protonix) 40 mg PO DAILY [facility] Stop: 02/15/17 08:59 Last Admin: 12/18/16 09:37 Dose: 40 mg Quetiapine Fumarate (Seroquel) 25 mg PO BID [facility] PRN Reason: Protocol Stop: 02/15/17 16:59 Last Admin: 12/18/16 09:37 Dose: 25 mg Zinc Sulfate (Zinc Sulfate) 220 mg PO DAILY [facility] Stop: 02/15/17 08:59 Last Admin: 12/18/16 09:37 Dose: 220 mg
[2016-12-18] MEDS: Venelex 60gm Tube TP SCH (16:10)
--- NOTE | 2016-12-18 17:57 | General Progress Note ---
Subjective - Review of Systems Service Date: 12/18/16 Subjective: Patient is still agitated. Patient still in GeroPsych Unit. Objective - Physical Exam Vitals and I&O: Vital Signs Temp 97.8 F 12/18/16 06:26 Pulse 63 12/18/16 17:16 Resp 19 12/18/16 06:26 BP 103/68 12/18/16 17:16 Pulse Ox 96 12/18/16 06:26 Intake & Output 12/17/16 12/18/16 12/18/16 18:59 06:59 18:59 Intake Total 1320 Balance 1320 Weight (lbs) 105.687 kg Intake: Oral 1320 Other: # Voids 3 # Bowel Movements 1 Active Medications: Current Medications Acetaminophen (Tylenol) 650 mg PO Q4HR PRN PRN Reason: Mild Pain/Fever Stop: 02/14/17 13:42 Acetaminophen/Hydrocodone Bitart ([place] 5mg/325mg) 1 tab PO Q6H PRN PRN Reason: moderate pain Stop: 02/14/17 14:37 Al Hydrox/Mg Hydrox/Simethicone (Maalox) 30 ml PO Q4HR PRN PRN Reason: GI DISTRESS Stop: 02/14/17 13:42 Albuterol Sulfate (Albuterol 2.5mg/3ml Neb Ud) 2.5 mg HHN Q6HR PRN PRN Reason: shortness of breath Stop: 02/14/17 13:42 Ascorbic Acid (Vitamin C) 500 mg PO DAILY [facility] Stop: 02/15/17 08:59 Last Admin: 12/18/16 09:37 Dose: 500 mg Atorvastatin Calcium (Lipitor) 10 mg PO DAILY [facility] PRN Reason: Protocol Stop: 02/15/17 08:59 Last Admin: 12/18/16 09:37 Dose: 10 mg Brimonidine Tartrate (Alphagan 0.15% Ophth Soln) 1 drop EACH EYE HS [facility] Stop: 02/14/17 20:59 Last Admin: 12/17/16 20:47 Dose: 1 drop Carvedilol (Coreg) 3.125 mg PO BID [facility] Stop: 02/14/17 16:59 Last Admin: 12/18/16 17:16 Dose: Not Given Clonidine HCl (Catapres) 0.1 mg PO Q4HR PRN PRN Reason: SBP ABOVE 160 Docusate Sodium (Colace) 250 mg PO DAILY PRN PRN Reason: Constipation Escitalopram Oxalate (Lexapro) 10 mg PO DAILY [facility] PRN Reason: Protocol Stop: 02/16/17 08:59 Last Admin: 12/18/16 09:37 Dose: 10 mg Folic Acid (Folate) 1 mg PO DAILY [facility] Stop: 02/15/17 08:59 Last Admin: 12/18/16 09:37 Dose: 1 mg Gabapentin (Neurontin) 300 mg PO DAILY [facility] Stop: 02/15/17 08:59 Last Admin: 12/18/16 09:37 Dose: 300 mg Hydrochlorothiazide (Hctz) 12.5 mg PO DAILY [facility] Stop: 02/15/17 08:59 Last Admin: 12/18/16 09:41 Dose: 12.5 mg Lorazepam (Ativan) 0.5 mg PO Q4HR PRN; Protocol PRN Reason: anxiety Stop: 02/15/17 10:30 Losartan Potassium (Cozaar) 50 mg PO DAILY [facility] Stop: 02/15/17 08:59 Last Admin: 12/18/16 09:40 Dose: 50 mg Miscellaneous (Clinical Monitoring) 1 ea MC DAILY PRN PRN Reason: RENAL-METFORMIN Stop: 02/14/17 14:33 Multivitamins/Vitamin C (Theragran) 1 tab PO DAILY [facility] Stop: 02/15/17 08:59 Last Admin: 12/18/16 09:37 Dose: 1 tab Ondansetron HCl (Zofran Odt) 4 mg PO Q6H PRN PRN Reason: Nausea / Vomiting Stop: 02/14/17 14:36 Pantoprazole Sodium (Protonix) 40 mg PO DAILY [facility] Stop: 02/15/17 08:59 Last Admin: 12/18/16 09:37 Dose: 40 mg Quetiapine Fumarate (Seroquel) 25 mg PO BID [facility] PRN Reason: Protocol Stop: 02/15/17 16:59 Last Admin: 12/18/16 09:37 Dose: 25 mg Zinc Sulfate (Zinc Sulfate) 220 mg PO DAILY [facility] Stop: 02/15/17 08:59 Last Admin: 12/18/16 09:37 Dose: 220 mg General: no Alert, no Oriented x3, no Cooperative Cardiovascular: Normal S1, Normal S2 Lungs: Clear to auscultation, Normal air movement Abdomen: Bowel sounds, Soft Psych/Mental Status: Mood NL, no Mental status NL - Procedures Procedures: Procedures Procedure Code Date GROUP PSYCHOTHERAPY 25713 11/07/15 GROUP PSYCHOTHERAPY GZHZZZZ 11/07/15 Assessment/Plan - Problem List Patient Problems: All Active Problems Dementia (Acute) F03.90 COPD (chronic obstructive pulmonary disease) (Acute) Diabetes mellitus (Acute) E11.9 Hypertension (Acute) I10 Schizophrenia (Acute) F20.9 - Assessment Assessment: Dementia (Acute) F03.90 Schizophrenia (Acute) F20.9 COPD (chronic obstructive pulmonary disease) (Acute) Diabetes mellitus (Acute) E11.9 Hypertension (Acute) I10 Debility - Plan Plan: * Continue current medications * Obtan labs in AM * Further per psychiatry Nutritional Asmnt/Malnutr-PDOC - Dietary Evaluation Malnutrition Findings (Please click <Entered> for more info): Nutritional Asmnt/Malnutrition Start: 12/18/16 16: 05 Text: Status: Complete Freq: Document 12/18/16 16:05 GSUN (Rec: 12/18/16 16:10 [email or web address] [email or web address]) Nutritional Asmnt/Malnutrition Patient General Information Nutritional Screening Moderate Risk Screening Diagnosis Reason for visit: psychosis Pertinent Medical Hx/Surgical Hx HTN, hyperlipidemia, dementia, TIA, constipation, psychosis, depression, schizophrenia, COPD, DM, debility Subjective Information 76 year old male. Pt transfered from [facility]. RD visited pt before at [facility] unit, pt was confused, talking to self, refusing meals. RD spoke to pt in bed eating during meal time today. Pt was pleasant, slightly confused, slightly slurred speech, however alert to answer simple questions. Most teeth intact, able to self feed, no difficulties noted. Pt denied nutritional concerns, deneid allergies, denied GI problems, requested for ice cream. Bedscale CBW 233lb. No severe wasting noted. Avg PO intake 100% of meals since adm, meeting nutritional needs. DM noted, no labs at this time, pt is not on insulin, glucose levels at [facility] 73: 83 7/4: 71 WNLs, will keep pt on low sodium diet and monitor is able, discussed with JOE Lamas . Current Diet Order/ Nutrition Support Low sodium Pertinent Medications Maalox, Vitamin C, Lipitor, Colace, Folate, Theragran, Zofran, Protonix, Seroquel, Zinc Sulfate Pertinent Labs No new labs. Nutritional Hx/Data Height 1.78 m Height (Calculated Centimeters) 177.8 Current Weight (lbs) 105.687 kg Weight (Calculated Kilograms) 105.7 Weight (Calculated Grams) 593003.0 [place] Body Weight 166 Weight Status Obese GI Symptoms Food Allergies No Skin Integrity/Comment: Mikhail 20. Skin intact. Current %PO Good (75-100%) Estimated Nutritional Goals Calories/Kcals/Kg IBW 166lb/75.5kg (questionable weights on EMR) Kcals Calculated 1888-2265kcal (25-30kcal/kg) Protein Calculated 76g (1g/kg) Fluid: ml 1888-2265ml (1ml/kcal) Nutritional Problem 1. Problem Problem No nutritional problem at this time. Intervention/Recommendation Comments 1. Continue with low sodium diet. Avg PO intake is adequate. 2. DM noted in H&P, no labs at this time, pt is not on insulin, glucose levels at [facility] 7/3: 83 7/4: 71 WNLs. Recommend monitor glucose levels. Recommend [id number] if needed. Expected Outcomes/Goals Expected Outcomes/Goals 1. PO intake to meet at least 75% of estimated nutritional needs.
[2016-12-19 07:13] LABS: ANION GAP 7.1 (7.0-16.0); BUN - UREA NITROGEN 22 mg/dL (7-25); BUN/CREATININE RATIO 24.4; CARBON DIOXIDE 30.3 mEq/L (21.0-31.0); CHLORIDE 106 mEq/L (98-107); CREATININE - SERUM 0.9 mg/dL (0.7-1.3); GLUCOSE 103 mg/dL (70-105); POTASSIUM SERUM 3.4 mEq/L (3.5-5.1); SODIUM SERUM 140 mEq/L (136-145)
[2016-12-19 07:32] LABS: HEMATOCRIT 47.4 % (39.0-49.0); HEMOGLOBIN 15.4 gm/dL (12.6-17.4); MEAN CELL VOLUME 88.7 fl (80-99); MEAN CORPUSCULAR HEMOGLOBIN 28.7 pg (27.0-31.0); MEAN CORPUSCULAR HGB CONC 32.4 pg (28.0-36.0); MEAN PLATELET VOLUME 7.7 fl; PLATELET COUNT 207 Th/cmm (150-400); RED BLOOD COUNT 5.35 Mil/cmm (3.80-5.80); RED CELL DISTRIBUTION WIDTH 17.5 % (11.5-20.0); WHITE BLOOD COUNT 6.9 Th/cmm (4.8-10.8)
[2016-12-19 08:39] LABS: BAND NEUTROPHILE 0 % (0-10); NEUTROPHILS 52 % (40-80); PLATELET ESTIMATE ADEQUATE (NORMAL); TOTAL CELLS COUNTED 100
[2016-12-19] MEDS: Multivitamin Tab PO SCH (09:06)
[2016-12-19] MEDS: Pantoprazole 40 mg EC Tab PO SCH (09:06)
[2016-12-19] MEDS: Atorvastatin Calcium 10 MG TAB PO SCH (09:06)
[2016-12-19] MEDS: Venelex 60gm Tube TP SCH (09:26)
--- NOTE | 2016-12-19 10:04 | General Progress Note ---
Subjective - Review of Systems Service Date: 12/19/16 Subjective: Patient is still agitated. Patient still in GeroPsych Unit. Objective - Results Result Diagrams: 12/19/16 06:38 12/19/16 06:38 Recent Labs: Laboratory Last Values WBC 6.9 Th/cmm (4.8-10.8) 12/19/16 06:38 RBC 5.35 Mil/cmm (3.80-5.80) 12/19/16 06:38 Hgb 15.4 gm/dL (12.6-17.4) 12/19/16 06:38 Hct 47.4 % (39.0-49.0) 12/19/16 06:38 MCV 88.7 fl (80-99) 12/19/16 06:38 MCH 28.7 pg (27.0-31.0) 12/19/16 06:38 MCHC Differential 32.4 pg (28.0-36.0) 12/19/16 06:38 RDW 17.5 % (11.5-20.0) 12/19/16 06:38 Plt Count 207 Th/cmm (150-400) 12/19/16 06:38 MPV 7.7 fl 12/19/16 06:38 Band Neutrophils % 0 % (0-10) 12/19/16 06:38 Neutrophils (Manual) 52 % (40-80) 12/19/16 06:38 Lymphocytes 35 % (20-50) 12/19/16 06:38 Monocytes 13 % (2-10) H 12/19/16 06:38 Platelet Estimate ADEQUATE (NORMAL) 12/19/16 06:38 Sodium 140 mEq/L (136-145) 12/19/16 06:38 Potassium 3.4 mEq/L (3.5-5.1) L 12/19/16 06:38 Chloride 106 mEq/L (98-107) 12/19/16 06:38 Carbon Dioxide 30.3 mEq/L (21.0-31.0) 12/19/16 06:38 Anion Gap 7.1 (7.0-16.0) 12/19/16 06:38 BUN 22 mg/dL (7-25) 12/19/16 06:38 Creatinine 0.9 mg/dL (0.7-1.3) 12/19/16 06:38 Est GFR ( Amer) TNP 12/19/16 06:38 Est GFR (Non-Af Amer) TNP 12/19/16 06:38 BUN/Creatinine Ratio 24.4 12/19/16 06:38 Glucose 103 mg/dL (70-105) 12/19/16 06:38 Calcium 10.0 mg/dL (8.6-10.3) 12/19/16 06:38 - Physical Exam Vitals and I&O: Vital Signs Temp 98.4 F 12/19/16 06:57 Pulse 70 12/19/16 09:08 Resp 20 12/19/16 06:57 BP 100/59 12/19/16 09:08 Pulse Ox 96 12/19/16 06:57 Intake & Output 12/18/16 12/19/16 12/19/16 18:59 06:59 18:59 Intake Total 120 Balance 120 Weight (lbs) 105.687 kg Intake: Oral 120 Other: # Voids 3 Active Medications: Current Medications Acetaminophen (Tylenol) 650 mg PO Q4HR PRN PRN Reason: Mild Pain/Fever Stop: 02/14/17 13:42 Acetaminophen/Hydrocodone Bitart ([place] 5mg/325mg) 1 tab PO Q6H PRN PRN Reason: moderate pain Stop: 02/14/17 14:37 Al Hydrox/Mg Hydrox/Simethicone (Maalox) 30 ml PO Q4HR PRN PRN Reason: GI DISTRESS Stop: 02/14/17 13:42 Albuterol Sulfate (Albuterol 2.5mg/3ml Neb Ud) 2.5 mg HHN Q6HR PRN PRN Reason: shortness of breath Stop: 02/14/17 13:42 Ascorbic Acid (Vitamin C) 500 mg PO DAILY [facility] Stop: 02/15/17 08:59 Last Admin: 12/19/16 09:06 Dose: 500 mg Atorvastatin Calcium (Lipitor) 10 mg PO DAILY [facility] PRN Reason: Protocol Stop: 02/15/17 08:59 Last Admin: 12/19/16 09:06 Dose: 10 mg Brimonidine Tartrate ([place] 0.15% Ophth Soln) 1 drop EACH EYE HS [facility] Stop: 02/14/17 20:59 Last Admin: 12/18/16 20:12 Dose: 1 drop Carvedilol (Coreg) 3.125 mg PO BID [facility] Stop: 02/14/17 16:59 Last Admin: 12/19/16 09:08 Dose: 3.125 mg Clonidine HCl (Catapres) 0.1 mg PO Q4HR PRN PRN Reason: SBP ABOVE 160 Docusate Sodium (Colace) 250 mg PO DAILY PRN PRN Reason: Constipation Last Admin: 12/19/16 09:29 Dose: 250 mg Escitalopram Oxalate (Lexapro) 10 mg PO DAILY [facility] PRN Reason: Protocol Stop: 02/16/17 08:59 Last Admin: 12/19/16 09:06 Dose: 10 mg Folic Acid (Folate) 1 mg PO DAILY [facility] Stop: 02/15/17 08:59 Last Admin: 12/19/16 09:06 Dose: 1 mg Gabapentin (Neurontin) 300 mg PO DAILY [facility] Stop: 02/15/17 08:59 Last Admin: 12/19/16 09:29 Dose: 300 mg Hydrochlorothiazide (Hctz) 12.5 mg PO DAILY [facility] Stop: 02/15/17 08:59 Last Admin: 12/19/16 09:08 Dose: 12.5 mg Lorazepam (Ativan) 0.5 mg PO Q4HR PRN; Protocol PRN Reason: anxiety Stop: 02/15/17 10:30 Losartan Potassium (Cozaar) 50 mg PO DAILY [facility] Stop: 02/15/17 08:59 Last Admin: 12/19/16 09:07 Dose: Not Given Multivitamins/Vitamin C (Theragran) 1 tab PO DAILY [facility] Stop: 02/15/17 08:59 Last Admin: 12/19/16 09:06 Dose: 1 tab Ondansetron HCl (Zofran Odt) 4 mg PO Q6H PRN PRN Reason: Nausea / Vomiting Stop: 02/14/17 14:36 Pantoprazole Sodium (Protonix) 40 mg PO DAILY [facility] Stop: 02/15/17 08:59 Last Admin: 12/19/16 09:06 Dose: 40 mg Quetiapine Fumarate (Seroquel) 25 mg PO BID [facility] PRN Reason: Protocol Stop: 02/15/17 16:59 Last Admin: 12/19/16 09:06 Dose: 25 mg Zinc Sulfate (Zinc Sulfate) 220 mg PO DAILY [facility] Stop: 02/15/17 08:59 Last Admin: 12/19/16 09:06 Dose: 220 mg General: no Alert, no Oriented x3, no Cooperative HEENT: Atraumatic, PERRLA, 6, EOMI, 7, Mucous membr. moist/pink, Other, 8, 9, 10 , 11, 12, 13, 14, 15, 16, 22, 17, 23, 18, 24, 19, 20, 21 Neck: Supple, JVD, Thyromegaly, +2 carotid pulse wo bruit, LAD, Other Cardiovascular: Normal S1, Normal S2 Lungs: Clear to auscultation, Normal air movement Abdomen: Bowel sounds, Soft Extremities: no Clubbing, no Cyanosis, no Edema, no Pulses, no Tender, no Other Neurological: Sensation intact, Cranial nerves 3-12 NL, no Normal gait, no Strength at 5/5 X4 ext Skin: no Rash, no Breakdown, no Significant lesion, no Other Psych/Mental Status: no Mental status NL, no Mood NL - Procedures Procedures: Procedures Procedure Code Date GROUP PSYCHOTHERAPY 13713 11/07/15 GROUP PSYCHOTHERAPY GZHZZZZ 11/07/15 Assessment/Plan - Problem List Patient Problems: All Active Problems Dementia (Acute) F03.90 COPD (chronic obstructive pulmonary disease) (Acute) Diabetes mellitus (Acute) E11.9 Hypertension (Acute) I10 Schizophrenia (Acute) F20.9 - Assessment Assessment: Dementia (Acute) F03.90 Schizophrenia (Acute) F20.9 COPD (chronic obstructive pulmonary disease) (Acute) Diabetes mellitus (Acute) E11.9 Hypertension (Acute) I10 Debility - Plan Plan: * Continue current medications * Obtain PT evaluation * Further per psychiatry Nutritional Asmnt/Malnutr-PDOC - Dietary Evaluation Malnutrition Findings (Please click <Entered> for more info): Nutritional Asmnt/Malnutrition Start: 12/18/16 16: 05 Text: Status: Complete Freq: Document 12/18/16 16:05 RODY (Rec: 12/18/16 16:10 RODY [email or web address]) Nutritional Asmnt/Malnutrition Patient General Information Nutritional Screening Moderate Risk Screening Diagnosis Reason for visit: psychosis Pertinent Medical Hx/Surgical Hx HTN, hyperlipidemia, dementia, TIA, constipation, psychosis, depression, schizophrenia, COPD, DM, debility Subjective Information 76 year old male. Pt transfered from [facility]. RD visited pt before at [facility] unit, pt was confused, talking to self, refusing meals. RD spoke to pt in bed eating during meal time today. Pt was pleasant, slightly confused, slightly slurred speech, however alert to answer simple questions. Most teeth intact, able to self feed, no difficulties noted. Pt denied nutritional concerns, deneid allergies, denied GI problems, requested for ice cream. Bedscale CBW 233lb. No severe wasting noted. Avg PO intake 100% of meals since adm, meeting nutritional needs. DM noted, no labs at this time, pt is not on insulin, glucose levels at [facility] 12/16: WNLs, will keep pt on low sodium diet and monitor is able, discussed with JOE Lamas . Current Diet Order/ Nutrition Support Low sodium Pertinent Medications Maalox, Vitamin C, Lipitor, Colace, Folate, Theragran, Zofran, Protonix, Seroquel, Zinc Sulfate Pertinent Labs No new labs. Nutritional Hx/Data Height 1.78 m Height (Calculated Centimeters) 177.8 Current Weight (lbs) 105.687 kg Weight (Calculated Kilograms) 105.7 Weight (Calculated Grams) 480275.0 [place] Body Weight 166 Weight Status Obese GI Symptoms Food Allergies No Skin Integrity/Comment: Mikhail Yusuf. Skin intact. Current %PO Good (75-100%) Estimated Nutritional Goals Calories/Kcals/Kg IBW 166lb/75.5kg (questionable weights on EMR) Kcals Calculated 1888-2265kcal (25-30kcal/kg) Protein Calculated 76g (1g/kg) Fluid: ml 1888-2265ml (1ml/kcal) Nutritional Problem 1. Problem Problem No nutritional problem at this time. Intervention/Recommendation Comments 1. Continue with low sodium diet. Avg PO intake is adequate. 2. DM noted in H&P, no labs at this time, pt is not on insulin, glucose levels at [facility] 12/16: WNLs. Recommend monitor glucose levels. Recommend [id number] if needed. Expected Outcomes/Goals Expected Outcomes/Goals 1. PO intake to meet at least 75% of estimated nutritional needs.
[2016-12-19] MEDS ORDERED: Potassium Chloride 20 mEq ER Tab PO ONE (10:05)
[2016-12-20] MEDS: Atorvastatin Calcium 10 MG TAB PO SCH (11:34)
[2016-12-20] MEDS: Multivitamin Tab PO SCH (11:36)
[2016-12-20] MEDS: Venelex 60gm Tube TP SCH (11:37)
[2016-12-20] MEDS: Pantoprazole 40 mg EC Tab PO SCH (11:37)
--- NOTE | 2016-12-20 15:33 | General Progress Note ---
Subjective - Review of Systems Service Date: 12/20/16 Subjective: Patient is still agitated. Patient still in GeroPsych Unit. Objective - Results Result Diagrams: 12/19/16 06:38 12/19/16 06:38 Recent Labs: Laboratory Last Values WBC 6.9 Th/cmm (4.8-10.8) 12/19/16 06:38 RBC 5.35 Mil/cmm (3.80-5.80) 12/19/16 06:38 Hgb 15.4 gm/dL (12.6-17.4) 12/19/16 06:38 Hct 47.4 % (39.0-49.0) 12/19/16 06:38 MCV 88.7 fl (80-99) 12/19/16 06:38 MCH 28.7 pg (27.0-31.0) 12/19/16 06:38 MCHC Differential 32.4 pg (28.0-36.0) 12/19/16 06:38 RDW 17.5 % (11.5-20.0) 12/19/16 06:38 Plt Count 207 Th/cmm (150-400) 12/19/16 06:38 MPV 7.7 fl 12/19/16 06:38 Band Neutrophils % 0 % (0-10) 12/19/16 06:38 Neutrophils (Manual) 52 % (40-80) 12/19/16 06:38 Lymphocytes 35 % (20-50) 12/19/16 06:38 Monocytes 13 % (2-10) H 12/19/16 06:38 Platelet Estimate ADEQUATE (NORMAL) 12/19/16 06:38 Sodium 140 mEq/L (136-145) 12/19/16 06:38 Potassium 3.4 mEq/L (3.5-5.1) L 12/19/16 06:38 Chloride 106 mEq/L (98-107) 12/19/16 06:38 Carbon Dioxide 30.3 mEq/L (21.0-31.0) 12/19/16 06:38 Anion Gap 7.1 (7.0-16.0) 12/19/16 06:38 BUN 22 mg/dL (7-25) 12/19/16 06:38 Creatinine 0.9 mg/dL (0.7-1.3) 12/19/16 06:38 Est GFR ( Amer) TNP 12/19/16 06:38 Est GFR (Non-Af Amer) TNP 12/19/16 06:38 BUN/Creatinine Ratio 24.4 12/19/16 06:38 Glucose 103 mg/dL (70-105) 12/19/16 06:38 Calcium 10.0 mg/dL (8.6-10.3) 12/19/16 06:38 - Physical Exam Vitals and I&O: Vital Signs Temp 97.6 F 12/20/16 06:32 Pulse 76 12/20/16 11:36 Resp 20 12/20/16 06:32 BP 121/65 12/20/16 11:36 Pulse Ox 98 12/20/16 06:32 Intake & Output 12/19/16 12/20/16 12/20/16 18:59 06:59 18:59 Intake Total 120 Balance 120 Intake: Oral 120 Other: # Voids 3 Active Medications: Current Medications Acetaminophen (Tylenol) 650 mg PO Q4HR PRN PRN Reason: Mild Pain/Fever Stop: 02/14/17 13:42 Acetaminophen/Hydrocodone Bitart ([place] 5mg/325mg) 1 tab PO Q6H PRN PRN Reason: moderate pain Stop: 02/14/17 14:37 Al Hydrox/Mg Hydrox/Simethicone (Maalox) 30 ml PO Q4HR PRN PRN Reason: GI DISTRESS Stop: 02/14/17 13:42 Albuterol Sulfate (Albuterol 2.5mg/3ml Neb Ud) 2.5 mg HHN Q6HR PRN PRN Reason: shortness of breath Stop: 02/14/17 13:42 Ascorbic Acid (Vitamin C) 500 mg PO DAILY [facility] Stop: 02/15/17 08:59 Last Admin: 12/20/16 11:35 Dose: 500 mg Atorvastatin Calcium (Lipitor) 10 mg PO DAILY [facility] PRN Reason: Protocol Stop: 02/15/17 08:59 Last Admin: 12/20/16 11:34 Dose: 10 mg Brimonidine Tartrate (Alphagan 0.15% Ophth Soln) 1 drop EACH EYE HS [facility] Stop: 02/14/17 20:59 Last Admin: 12/19/16 21:38 Dose: 1 drop Carvedilol (Coreg) 3.125 mg PO BID [facility] Stop: 02/14/17 16:59 Last Admin: 12/20/16 11:36 Dose: 3.125 mg Clonidine HCl (Catapres) 0.1 mg PO Q4HR PRN PRN Reason: SBP ABOVE 160 Docusate Sodium (Colace) 250 mg PO DAILY PRN PRN Reason: Constipation Last Admin: 12/20/16 11:34 Dose: 250 mg Donepezil HCl (Aricept) 10 mg PO HS [facility] Stop: 02/18/17 10:24 Escitalopram Oxalate (Lexapro) 10 mg PO DAILY [facility] PRN Reason: Protocol Stop: 02/16/17 08:59 Last Admin: 12/20/16 11:34 Dose: 10 mg Folic Acid (Folate) 1 mg PO DAILY [facility] Stop: 02/15/17 08:59 Last Admin: 12/20/16 11:35 Dose: 1 mg Gabapentin (Neurontin) 300 mg PO DAILY [facility] Stop: 02/15/17 08:59 Last Admin: 12/20/16 11:35 Dose: 300 mg Hydrochlorothiazide (Hctz) 12.5 mg PO DAILY [facility] Stop: 02/15/17 08:59 Last Admin: 12/20/16 11:36 Dose: 12.5 mg Lorazepam (Ativan) 0.5 mg PO Q4HR PRN; Protocol PRN Reason: anxiety Stop: 02/15/17 10:30 Losartan Potassium (Cozaar) 50 mg PO DAILY [facility] Stop: 02/15/17 08:59 Last Admin: 12/20/16 11:35 Dose: 50 mg Magnesium Hydroxide (Milk Of Magnesia) 30 ml PO DAILY PRN PRN Reason: Constipation Stop: 02/18/17 15:25 Multivitamins/Vitamin C (Theragran) 1 tab PO DAILY [facility] Stop: 02/15/17 08:59 Last Admin: 12/20/16 11:36 Dose: 1 tab Ondansetron HCl (Zofran Odt) 4 mg PO Q6H PRN PRN Reason: Nausea / Vomiting Stop: 02/14/17 14:36 Pantoprazole Sodium (Protonix) 40 mg PO DAILY [facility] Stop: 02/15/17 08:59 Last Admin: 12/20/16 11:37 Dose: 40 mg Quetiapine Fumarate (Seroquel) 25 mg PO BID [facility] PRN Reason: Protocol Stop: 02/15/17 16:59 Last Admin: 12/20/16 11:34 Dose: 25 mg Zinc Sulfate (Zinc Sulfate) 220 mg PO DAILY [facility] Stop: 02/15/17 08:59 Last Admin: 12/20/16 11:34 Dose: 220 mg General: no Alert, no Oriented x3, no Cooperative HEENT: Atraumatic, PERRLA, 6, EOMI, 7, Mucous membr. moist/pink, Other, 8, 9, 10 , 11, 12, 13, 14, 15, 16, 22, 17, 23, 18, 24, 19, 20, 21 Neck: Supple, JVD, Thyromegaly, +2 carotid pulse wo bruit, LAD, Other Cardiovascular: Normal S1, Normal S2 Lungs: Clear to auscultation, Normal air movement Abdomen: Bowel sounds, Soft Extremities: no Clubbing, no Cyanosis, no Edema, no Pulses, no Tender, no Other Neurological: Sensation intact, Cranial nerves 3-12 NL, no Normal gait, no Strength at 5/5 X4 ext Skin: no Rash, no Breakdown, no Significant lesion, no Other Psych/Mental Status: no Mental status NL, no Mood NL - Procedures Procedures: Procedures Procedure Code Date GROUP PSYCHOTHERAPY 93801 11/07/15 GROUP PSYCHOTHERAPY GZHZZZZ 11/07/15 Assessment/Plan - Problem List Patient Problems: All Active Problems Dementia (Acute) F03.90 COPD (chronic obstructive pulmonary disease) (Acute) Diabetes mellitus (Acute) E11.9 Hypertension (Acute) I10 Schizophrenia (Acute) F20.9 - Assessment Assessment: Dementia (Acute) F03.90 Schizophrenia (Acute) F20.9 COPD (chronic obstructive pulmonary disease) (Acute) Diabetes mellitus (Acute) E11.9 Hypertension (Acute) I10 Debility - Plan Plan: * Continue current medications * Further per psychiatry Nutritional Asmnt/Malnutr-PDOC - Dietary Evaluation Malnutrition Findings (Please click <Entered> for more info): Nutritional Asmnt/Malnutrition Start: 12/18/16 16: 05 Text: Status: Complete Freq: Document 12/18/16 16:05 GSUN (Rec: 12/18/16 16:10 GSUN [email or web address]) Nutritional Asmnt/Malnutrition Patient General Information Nutritional Screening Moderate Risk Screening Diagnosis Reason for visit: psychosis Pertinent Medical Hx/Surgical Hx HTN, hyperlipidemia, dementia, TIA, constipation, psychosis, depression, schizophrenia, COPD, DM, debility Subjective Information 76 year old male. Pt transfered from [facility]. RD visited pt before at [facility] unit, pt was confused, talking to self, refusing meals. RD spoke to pt in bed eating during meal time today. Pt was pleasant, slightly confused, slightly slurred speech, however alert to answer simple questions. Most teeth intact, able to self feed, no difficulties noted. Pt denied nutritional concerns, deneid allergies, denied GI problems, requested for ice cream. Bedscale CBW 233lb. No severe wasting noted. Avg PO intake 100% of meals since adm, meeting nutritional needs. DM noted, no labs at this time, pt is not on insulin, glucose levels at [facility] 12/16: 71 WNLs, will keep pt on low sodium diet and monitor is able, discussed with JOE Lamas . Current Diet Order/ Nutrition Support Low sodium Pertinent Medications Maalox, Vitamin C, Lipitor, Colace, Folate, Theragran, Zofran, Protonix, Seroquel, Zinc Sulfate Pertinent Labs No new labs. Nutritional Hx/Data Height 1.78 m Height (Calculated Centimeters) 177.8 Current Weight (lbs) 105.687 kg Weight (Calculated Kilograms) 105.7 Weight (Calculated Grams) 485468.0 [place] Body Weight 166 Weight Status Obese GI Symptoms Food Allergies No Skin Integrity/Comment: Mikhail 20. Skin intact. Current %PO Good (75-100%) Estimated Nutritional Goals Calories/Kcals/Kg IBW 166lb/75.5kg (questionable weights on EMR) Kcals Calculated 1888-2265kcal (25-30kcal/kg) Protein Calculated 76g (1g/kg) Fluid: ml 1888-2265ml (1ml/kcal) Nutritional Problem 1. Problem Problem No nutritional problem at this time. Intervention/Recommendation Comments 1. Continue with low sodium diet. Avg PO intake is adequate. 2. DM noted in H&P, no labs at this time, pt is not on insulin, glucose levels at [facility] 12/16: 71 WNLs. Recommend monitor glucose levels. Recommend [id number] if needed. Expected Outcomes/Goals Expected Outcomes/Goals 1. PO intake to meet at least 75% of estimated nutritional needs.
[2016-12-20] MEDS: Magnesium Hydroxide (MOM) 30 mL UDC PO PRN (16:01)
[2016-12-21] MEDS: Magnesium Hydroxide (MOM) 30 mL UDC PO PRN (06:58)
[2016-12-21] MEDS: Venelex 60gm Tube TP SCH (09:25)
[2016-12-21] MEDS: Multivitamin Tab PO SCH (09:26)
[2016-12-21] MEDS: Atorvastatin Calcium 10 MG TAB PO SCH (09:26)
[2016-12-21] MEDS: Pantoprazole 40 mg EC Tab PO SCH (09:26)
--- NOTE | 2016-12-21 11:18 | General Progress Note ---
Subjective - Review of Systems Service Date: 12/21/16 Subjective: Patient is still agitated. Patient still in GeroPsych Unit. Objective - Results Result Diagrams: 12/19/16 06:38 12/19/16 06:38 Recent Labs: Laboratory Last Values WBC 6.9 Th/cmm (4.8-10.8) 12/19/16 06:38 RBC 5.35 Mil/cmm (3.80-5.80) 12/19/16 06:38 Hgb 15.4 gm/dL (12.6-17.4) 12/19/16 06:38 Hct 47.4 % (39.0-49.0) 12/19/16 06:38 MCV 88.7 fl (80-99) 12/19/16 06:38 MCH 28.7 pg (27.0-31.0) 12/19/16 06:38 MCHC Differential 32.4 pg (28.0-36.0) 12/19/16 06:38 RDW 17.5 % (11.5-20.0) 12/19/16 06:38 Plt Count 207 Th/cmm (150-400) 12/19/16 06:38 MPV 7.7 fl 12/19/16 06:38 Band Neutrophils % 0 % (0-10) 12/19/16 06:38 Neutrophils (Manual) 52 % (40-80) 12/19/16 06:38 Lymphocytes 35 % (20-50) 12/19/16 06:38 Monocytes 13 % (2-10) H 12/19/16 06:38 Platelet Estimate ADEQUATE (NORMAL) 12/19/16 06:38 Sodium 140 mEq/L (136-145) 12/19/16 06:38 Potassium 3.4 mEq/L (3.5-5.1) L 12/19/16 06:38 Chloride 106 mEq/L (98-107) 12/19/16 06:38 Carbon Dioxide 30.3 mEq/L (21.0-31.0) 12/19/16 06:38 Anion Gap 7.1 (7.0-16.0) 12/19/16 06:38 BUN 22 mg/dL (7-25) 12/19/16 06:38 Creatinine 0.9 mg/dL (0.7-1.3) 12/19/16 06:38 Est GFR ( Amer) TNP 12/19/16 06:38 Est GFR (Non-Af Amer) TNP 12/19/16 06:38 BUN/Creatinine Ratio 24.4 12/19/16 06:38 Glucose 103 mg/dL (70-105) 12/19/16 06:38 Calcium 10.0 mg/dL (8.6-10.3) 12/19/16 06:38 - Physical Exam Vitals and I&O: Vital Signs Temp 97.9 F 12/20/16 16:16 Pulse 82 12/21/16 11:08 Resp 19 12/21/16 11:08 BP 113/65 12/21/16 09:27 Pulse Ox 98 12/20/16 16:16 Intake & Output 12/20/16 12/21/16 12/21/16 18:59 06:59 18:59 Intake Total 1000 Balance 1000 Intake: Oral 1000 Other: # Voids 4 # Bowel Movements 1 Stool Characteristics Formed Active Medications: Current Medications Acetaminophen (Tylenol) 650 mg PO Q4HR PRN PRN Reason: Mild Pain/Fever Stop: 02/14/17 13:42 Acetaminophen/Hydrocodone Bitart ([place] 5mg/325mg) 1 tab PO Q6H PRN PRN Reason: moderate pain Stop: 02/14/17 14:37 Al Hydrox/Mg Hydrox/Simethicone (Maalox) 30 ml PO Q4HR PRN PRN Reason: GI DISTRESS Stop: 02/14/17 13:42 Albuterol Sulfate (Albuterol 2.5mg/3ml Neb Ud) 2.5 mg HHN Q6HR PRN PRN Reason: shortness of breath Stop: 02/14/17 13:42 Ascorbic Acid (Vitamin C) 500 mg PO DAILY [facility] Stop: 02/15/17 08:59 Last Admin: 12/21/16 09:26 Dose: 500 mg Atorvastatin Calcium (Lipitor) 10 mg PO DAILY [facility] PRN Reason: Protocol Stop: 02/15/17 08:59 Last Admin: 12/21/16 09:26 Dose: 10 mg Brimonidine Tartrate (Alphagan 0.15% Ophth Soln) 1 drop EACH EYE HS [facility] Stop: 02/14/17 20:59 Last Admin: 12/20/16 21:36 Dose: 1 drop Carvedilol (Coreg) 3.125 mg PO BID [facility] Stop: 02/14/17 16:59 Last Admin: 12/21/16 09:27 Dose: 3.125 mg Clonidine HCl (Catapres) 0.1 mg PO Q4HR PRN PRN Reason: SBP ABOVE 160 Docusate Sodium (Colace) 250 mg PO DAILY PRN PRN Reason: Constipation Last Admin: 12/20/16 11:34 Dose: 250 mg Donepezil HCl (Aricept) 10 mg PO HS [facility] Stop: 02/18/17 10:24 Last Admin: 12/20/16 21:35 Dose: 10 mg Escitalopram Oxalate (Lexapro) 10 mg PO DAILY [facility] PRN Reason: Protocol Stop: 02/16/17 08:59 Last Admin: 12/21/16 09:25 Dose: 10 mg Folic Acid (Folate) 1 mg PO DAILY [facility] Stop: 02/15/17 08:59 Last Admin: 12/21/16 09:26 Dose: 1 mg Gabapentin (Neurontin) 300 mg PO DAILY [facility] Stop: 02/15/17 08:59 Last Admin: 12/21/16 09:26 Dose: 300 mg Hydrochlorothiazide (Hctz) 12.5 mg PO DAILY [facility] Stop: 02/15/17 08:59 Last Admin: 12/21/16 09:26 Dose: 12.5 mg Lorazepam (Ativan) 0.5 mg PO Q4HR PRN; Protocol PRN Reason: anxiety Stop: 02/15/17 10:30 Losartan Potassium (Cozaar) 50 mg PO DAILY [facility] Stop: 02/15/17 08:59 Last Admin: 12/21/16 09:27 Dose: 50 mg Magnesium Hydroxide (Milk Of Magnesia) 30 ml PO DAILY PRN PRN Reason: Constipation Stop: 02/18/17 15:25 Last Admin: 12/21/16 06:58 Dose: 30 ml Multivitamins/Vitamin C (Theragran) 1 tab PO DAILY [facility] Stop: 02/15/17 08:59 Last Admin: 12/21/16 09:26 Dose: 1 tab Ondansetron HCl (Zofran Odt) 4 mg PO Q6H PRN PRN Reason: Nausea / Vomiting Stop: 02/14/17 14:36 Pantoprazole Sodium (Protonix) 40 mg PO DAILY [facility] Stop: 02/15/17 08:59 Last Admin: 12/21/16 09:26 Dose: 40 mg Quetiapine Fumarate (Seroquel) 25 mg PO BID [facility] PRN Reason: Protocol Stop: 02/15/17 16:59 Last Admin: 12/21/16 09:25 Dose: 25 mg Zinc Sulfate (Zinc Sulfate) 220 mg PO DAILY [facility] Stop: 02/15/17 08:59 Last Admin: 12/21/16 09:25 Dose: 220 mg General: no Alert, no Oriented x3, no Cooperative HEENT: Atraumatic, PERRLA, 6, EOMI, 7, Mucous membr. moist/pink, Other, 8, 9, 10 , 11, 12, 13, 14, 15, 16, 22, 17, 23, 18, 24, 19, 20, 21 Neck: Supple, JVD, Thyromegaly, +2 carotid pulse wo bruit, LAD, Other Cardiovascular: Normal S1, Normal S2 Lungs: Clear to auscultation, Normal air movement Abdomen: Bowel sounds, Soft Extremities: no Clubbing, no Cyanosis, no Edema, no Pulses, no Tender, no Other Neurological: Sensation intact, Cranial nerves 3-12 NL, no Normal gait, no Strength at 5/5 X4 ext Skin: no Rash, no Breakdown, no Significant lesion, no Other Psych/Mental Status: no Mental status NL, no Mood NL - Procedures Procedures: Procedures Procedure Code Date GROUP PSYCHOTHERAPY 38490 11/07/15 GROUP PSYCHOTHERAPY GZHZZZZ 11/07/15 Assessment/Plan - Problem List Patient Problems: All Active Problems Dementia (Acute) F03.90 COPD (chronic obstructive pulmonary disease) (Acute) Diabetes mellitus (Acute) E11.9 Hypertension (Acute) I10 Schizophrenia (Acute) F20.9 - Assessment Assessment: Dementia (Acute) F03.90 Schizophrenia (Acute) F20.9 COPD (chronic obstructive pulmonary disease) (Acute) Diabetes mellitus (Acute) E11.9 Hypertension (Acute) I10 Debility - Plan Plan: * Continue current medications * Further per psychiatry * Obtain labs in am Nutritional Asmnt/Malnutr-PDOC - Dietary Evaluation Malnutrition Findings (Please click <Entered> for more info): Nutritional Asmnt/Malnutrition Start: 12/18/16 16: 05 Text: Status: Complete Freq: Document 12/18/16 16:05 GSUN (Rec: 12/18/16 16:10 [facility] [id number]) Nutritional Asmnt/Malnutrition Patient General Information Nutritional Screening Moderate Risk Screening Diagnosis Reason for visit: psychosis Pertinent Medical Hx/Surgical Hx HTN, hyperlipidemia, dementia, TIA, constipation, psychosis, depression, schizophrenia, COPD, DM, debility Subjective Information 76 year old male. Pt transfered from [facility]. RD visited pt before at [facility] unit, pt was confused, talking to self, refusing meals. RD spoke to pt in bed eating during meal time today. Pt was pleasant, slightly confused, slightly slurred speech, however alert to answer simple questions. Most teeth intact, able to self feed, no difficulties noted. Pt denied nutritional concerns, deneid allergies, denied GI problems, requested for ice cream. Bedscale CBW 233lb. No severe wasting noted. Avg PO intake 100% of meals since adm, meeting nutritional needs. DM noted, no labs at this time, pt is not on insulin, glucose levels at [facility] 3: 83 7/4: 71 WNLs, will keep pt on low sodium diet and monitor is able, discussed with JOE Lamas . Current Diet Order/ Nutrition Support Low sodium Pertinent Medications Maalox, Vitamin C, Lipitor, Colace, Folate, Theragran, Zofran, Protonix, Seroquel, Zinc Sulfate Pertinent Labs No new labs. Nutritional Hx/Data Height 1.78 m Height (Calculated Centimeters) 177.8 Current Weight (lbs) 105.687 kg Weight (Calculated Kilograms) 105.7 Weight (Calculated Grams) 398547.0 [place] Body Weight 166 Weight Status Obese GI Symptoms Food Allergies No Skin Integrity/Comment: Mikhail 20. Skin intact. Current %PO Good (75-100%) Estimated Nutritional Goals Calories/Kcals/Kg IBW 166lb/75.5kg (questionable weights on EMR) Kcals Calculated 1888-2265kcal (25-30kcal/kg) Protein Calculated 76g (1g/kg) Fluid: ml 1888-2265ml (1ml/kcal) Nutritional Problem 1. Problem Problem No nutritional problem at this time. Intervention/Recommendation Comments 1. Continue with low sodium diet. Avg PO intake is adequate. 2. DM noted in H&P, no labs at this time, pt is not on insulin, glucose levels at [facility] 3: 83 74: 71 WNLs. Recommend monitor glucose levels. Recommend [id number] if needed. Expected Outcomes/Goals Expected Outcomes/Goals 1. PO intake to meet at least 75% of estimated nutritional needs.
[2016-12-22 08:43] LABS: % BASOPHILS 0.8 % (0.0-2.0); % EOSINOPHILS 2.7 % (0.0-5.0); % LYMPHOCYTES 35.4 % (20.0-50.0); % MONOCYTES 8.7 % (2.0-10.0); % NEUTROPHILS 52.4 % (40.0-80.0); HEMATOCRIT 46.9 % (39.0-49.0); HEMOGLOBIN 15.7 gm/dL (12.6-17.4); MEAN CORPUSCULAR HEMOGLOBIN 29.4 pg (27.0-31.0); MEAN CORPUSCULAR HGB CONC 33.4 pg (28.0-36.0); MEAN PLATELET VOLUME 7.6 fl; NEUTROPHILE ABSOLUTE 3.2 Th/cmm (1.8-8.0); PLATELET COUNT 231 Th/cmm (150-400); RED BLOOD COUNT 5.33 Mil/cmm (3.80-5.80); RED CELL DISTRIBUTION WIDTH 17.2 % (11.5-20.0); WHITE BLOOD COUNT 6.1 Th/cmm (4.8-10.8)
[2016-12-22 09:06] LABS: ANION GAP 4.8 (7.0-16.0); BUN - UREA NITROGEN 16 mg/dL (7-25); CALCIUM SERUM 9.7 mg/dL (8.6-10.3); CARBON DIOXIDE 31.9 mEq/L (21.0-31.0); CHLORIDE 104 mEq/L (98-107); CREATININE - SERUM 0.8 mg/dL (0.7-1.3); GLUCOSE 128 mg/dL (70-105); POTASSIUM SERUM 3.7 mEq/L (3.5-5.1); SODIUM SERUM 137 mEq/L (136-145)
[2016-12-22] MEDS: Atorvastatin Calcium 10 MG TAB PO SCH (11:28)
[2016-12-22] MEDS: Venelex 60gm Tube TP SCH (11:29)
[2016-12-22] MEDS: Pantoprazole 40 mg EC Tab PO SCH (11:31)
[2016-12-22] MEDS: Multivitamin Tab PO SCH (11:31)
--- NOTE | 2016-12-22 19:19 | General Progress Note ---
Subjective - Review of Systems Service Date: 12/22/16 Subjective: Patient is still agitated and confused. Patient still in GeroPsych Unit. Objective - Results Result Diagrams: 12/22/16 07:55 12/22/16 07:55 Recent Labs: Laboratory Last Values WBC 6.1 Th/cmm (4.8-10.8) 12/22/16 07:55 RBC 5.33 Mil/cmm (3.80-5.80) 12/22/16 07:55 Hgb 15.7 gm/dL (12.6-17.4) 12/22/16 07:55 Hct 46.9 % (39.0-49.0) 12/22/16 07:55 MCV 88.0 fl (80-99) 12/22/16 07:55 MCH 29.4 pg (27.0-31.0) 12/22/16 07:55 MCHC Differential 33.4 pg (28.0-36.0) 12/22/16 07:55 RDW 17.2 % (11.5-20.0) 12/22/16 07:55 Plt Count 231 Th/cmm (150-400) 12/22/16 07:55 MPV 7.6 fl 12/22/16 07:55 Neutrophils % 52.4 % (40.0-80.0) 12/22/16 07:55 Band Neutrophils % 0 % (0-10) 12/19/16 06:38 Lymphocytes % 35.4 % (20.0-50.0) 12/22/16 07:55 Monocytes % 8.7 % (2.0-10.0) 12/22/16 07:55 Eosinophils % 2.7 % (0.0-5.0) 12/22/16 07:55 Basophils % 0.8 % (0.0-2.0) 12/22/16 07:55 Neutrophils (Manual) 52 % (40-80) 12/19/16 06:38 Lymphocytes 35 % (20-50) 12/19/16 06:38 Monocytes 13 % (2-10) H 12/19/16 06:38 Platelet Estimate ADEQUATE (NORMAL) 12/19/16 06:38 Sodium 137 mEq/L (136-145) 12/22/16 07:55 Potassium 3.7 mEq/L (3.5-5.1) 12/22/16 07:55 Chloride 104 mEq/L (98-107) 12/22/16 07:55 Carbon Dioxide 31.9 mEq/L (21.0-31.0) H 12/22/16 07:55 Anion Gap 4.8 (7.0-16.0) L 12/22/16 07:55 BUN 16 mg/dL (7-25) 12/22/16 07:55 Creatinine 0.8 mg/dL (0.7-1.3) 12/22/16 07:55 Est GFR ( Amer) TNP 12/22/16 07:55 Est GFR (Non-Af Amer) TNP 12/22/16 07:55 BUN/Creatinine Ratio 20.0 12/22/16 07:55 Glucose 128 mg/dL (70-105) H 12/22/16 07:55 Calcium 9.7 mg/dL (8.6-10.3) 12/22/16 07:55 - Physical Exam Vitals and I&O: Vital Signs Temp 97.6 F 12/22/16 15:02 Pulse 81 12/22/16 17:39 Resp 19 12/22/16 15:02 BP 104/50 12/22/16 17:39 Pulse Ox 96 12/22/16 15:02 Intake & Output 12/22/16 12/22/16 12/23/16 06:59 18:59 06:59 Intake Total 2200 Balance 2200 Intake: Oral 2200 Other: # Voids 4 # Bowel Movements 0 Stool Characteristics Soft Formed Active Medications: Current Medications Acetaminophen (Tylenol) 650 mg PO Q4HR PRN PRN Reason: Mild Pain/Fever Stop: 02/14/17 13:42 Acetaminophen/Hydrocodone Bitart ([place] 5mg/325mg) 1 tab PO Q6H PRN PRN Reason: moderate pain Stop: 02/14/17 14:37 Al Hydrox/Mg Hydrox/Simethicone (Maalox) 30 ml PO Q4HR PRN PRN Reason: GI DISTRESS Stop: 02/14/17 13:42 Albuterol Sulfate (Albuterol 2.5mg/3ml Neb Ud) 2.5 mg HHN Q6HR PRN PRN Reason: shortness of breath Stop: 02/14/17 13:42 Ascorbic Acid (Vitamin C) 500 mg PO DAILY [facility] Stop: 02/15/17 08:59 Last Admin: 12/22/16 11:28 Dose: Not Given Atorvastatin Calcium (Lipitor) 10 mg PO DAILY [facility] PRN Reason: Protocol Stop: 02/15/17 08:59 Last Admin: 12/22/16 11:28 Dose: Not Given Brimonidine Tartrate (Alphagan 0.15% Ophth Soln) 1 drop EACH EYE HS [facility] Stop: 02/14/17 20:59 Last Admin: 12/21/16 21:00 Dose: 1 drop Carvedilol (Coreg) 3.125 mg PO BID [facility] Stop: 02/14/17 16:59 Last Admin: 12/22/16 17:39 Dose: Not Given Clonidine HCl (Catapres) 0.1 mg PO Q4HR PRN PRN Reason: SBP ABOVE 160 Docusate Sodium (Colace) 250 mg PO DAILY PRN PRN Reason: Constipation Last Admin: 12/20/16 11:34 Dose: 250 mg Donepezil HCl (Aricept) 10 mg PO [facility] Stop: 02/18/17 10:24 Last Admin: 12/21/16 21:00 Dose: 10 mg Escitalopram Oxalate (Lexapro) 10 mg PO DAILY [facility] PRN Reason: Protocol Stop: 02/16/17 08:59 Last Admin: 12/22/16 11:29 Dose: Not Given Folic Acid (Folate) 1 mg PO DAILY [facility] Stop: 02/15/17 08:59 Last Admin: 12/22/16 11:29 Dose: Not Given Gabapentin (Neurontin) 300 mg PO DAILY [facility] Stop: 02/15/17 08:59 Last Admin: 12/22/16 11:30 Dose: Not Given Hydrochlorothiazide (Hctz) 12.5 mg PO DAILY [facility] Stop: 02/15/17 08:59 Last Admin: 12/22/16 11:30 Dose: Not Given Lorazepam (Ativan) 0.5 mg PO Q4HR PRN; Protocol PRN Reason: anxiety Stop: 02/15/17 10:30 Losartan Potassium (Cozaar) 50 mg PO DAILY [facility] Stop: 02/15/17 08:59 Last Admin: 12/22/16 11:30 Dose: Not Given Magnesium Hydroxide (Milk Of Magnesia) 30 ml PO DAILY PRN PRN Reason: Constipation Stop: 02/18/17 15:25 Last Admin: 12/21/16 06:58 Dose: 30 ml Multivitamins/Vitamin C (Theragran) 1 tab PO DAILY [facility] Stop: 02/15/17 08:59 Last Admin: 12/22/16 11:31 Dose: Not Given Ondansetron HCl (Zofran Odt) 4 mg PO Q6H PRN PRN Reason: Nausea / Vomiting Stop: 02/14/17 14:36 Pantoprazole Sodium (Protonix) 40 mg PO DAILY [facility] Stop: 02/15/17 08:59 Last Admin: 12/22/16 11:31 Dose: Not Given Quetiapine Fumarate (Seroquel) 25 mg PO BID [facility] PRN Reason: Protocol Stop: 02/15/17 16:59 Last Admin: 12/22/16 17:40 Dose: 25 mg Zinc Sulfate (Zinc Sulfate) 220 mg PO DAILY [facility] Stop: 02/15/17 08:59 Last Admin: 12/22/16 11:31 Dose: Not Given General: no Alert, no Oriented x3, no Cooperative HEENT: Atraumatic, PERRLA, 6, EOMI, 7, Mucous membr. moist/pink, Other, 8, 9, 10 , 11, 12, 13, 14, 15, 16, 22, 17, 23, 18, 24, 19, 20, 21 Neck: Supple, JVD, Thyromegaly, +2 carotid pulse wo bruit, LAD, Other Cardiovascular: Regular rate, Normal S1, Normal S2 Lungs: Clear to auscultation, Normal air movement Abdomen: Bowel sounds, Soft, no Tender, no Distended Extremities: no Clubbing, no Cyanosis, no Edema, no Pulses, no Tender, no Other Neurological: Sensation intact, Cranial nerves 3-12 NL, no Normal gait, no Strength at 5/5 X4 ext Skin: no Rash, no Breakdown, no Significant lesion, no Other Psych/Mental Status: no Mental status NL, no Mood NL - Procedures Procedures: Procedures Procedure Code Date GROUP PSYCHOTHERAPY 38534 11/07/15 GROUP PSYCHOTHERAPY GZHZZZZ 11/07/15 Assessment/Plan - Problem List Patient Problems: All Active Problems Dementia (Acute) F03.90 COPD (chronic obstructive pulmonary disease) (Acute) Diabetes mellitus (Acute) E11.9 Hypertension (Acute) I10 Schizophrenia (Acute) F20.9 - Assessment Assessment: Dementia (Acute) F03.90 Schizophrenia (Acute) F20.9 COPD (chronic obstructive pulmonary disease) (Acute) Diabetes mellitus (Acute) E11.9 Hypertension (Acute) I10 Debility - Plan Plan: * Continue current medications * Further per psychiatry * Obtain labs on Thursday Nutritional Asmnt/Malnutr-PDOC - Dietary Evaluation Malnutrition Findings (Please click <Entered> for more info): Nutritional Asmnt/Malnutrition Start: 12/18/16 16: 05 Text: Status: Complete Freq: Document 12/18/16 16:05 GSUN (Rec: 12/18/16 16:10 GSUN [email or web address]) Nutritional Asmnt/Malnutrition Patient General Information Nutritional Screening Moderate Risk Screening Diagnosis Reason for visit: psychosis Pertinent Medical Hx/Surgical Hx HTN, hyperlipidemia, dementia, TIA, constipation, psychosis, depression, schizophrenia, COPD, DM, debility Subjective Information 76 year old male. Pt transfered from [facility]. RD visited pt before at [facility] unit, pt was confused, talking to self, refusing meals. RD spoke to pt in bed eating during meal time today. Pt was pleasant, slightly confused, slightly slurred speech, however alert to answer simple questions. Most teeth intact, able to self feed, no difficulties noted. Pt denied nutritional concerns, deneid allergies, denied GI problems, requested for ice cream. Bedscale CBW 233lb. No severe wasting noted. Avg PO intake 100% of meals since adm, meeting nutritional needs. DM noted, no labs at this time, pt is not on insulin, glucose levels at [facility] 73: 83 7/4: 71 WNLs, will keep pt on low sodium diet and monitor is able, discussed with JOE Lamas . Current Diet Order/ Nutrition Support Low sodium Pertinent Medications Maalox, Vitamin C, Lipitor, Colace, Folate, Theragran, Zofran, Protonix, Seroquel, Zinc Sulfate Pertinent Labs No new labs. Nutritional Hx/Data Height 1.78 m Height (Calculated Centimeters) 177.8 Current Weight (lbs) 105.687 kg Weight (Calculated Kilograms) 105.7 Weight (Calculated Grams) 265154.0 Bone Gap Body Weight 166 Weight Status Obese GI Symptoms Food Allergies No Skin Integrity/Comment: Mikhail 20. Skin intact. Current %PO Good (75-100%) Estimated Nutritional Goals Calories/Kcals/Kg IBW 166lb/75.5kg (questionable weights on EMR) Kcals Calculated 1888-2265kcal (25-30kcal/kg) Protein Calculated 76g (1g/kg) Fluid: ml 1888-2265ml (1ml/kcal) Nutritional Problem 1. Problem Problem No nutritional problem at this time. Intervention/Recommendation Comments 1. Continue with low sodium diet. Avg PO intake is adequate. 2. DM noted in H&P, no labs at this time, pt is not on insulin, glucose levels at [facility] 7/3: 83 7/4: 71 WNLs. Recommend monitor glucose levels. Recommend [id number] if needed. Expected Outcomes/Goals Expected Outcomes/Goals 1. PO intake to meet at least 75% of estimated nutritional needs.
[2016-12-23] MEDS: Pantoprazole 40 mg EC Tab PO SCH (08:48)
[2016-12-23] MEDS: Atorvastatin Calcium 10 MG TAB PO SCH (08:48)
[2016-12-23] MEDS: Multivitamin Tab PO SCH (08:49)
[2016-12-23] MEDS: Venelex 60gm Tube TP SCH (09:08)
--- NOTE | 2016-12-23 12:43 | General Progress Note ---
Subjective - Review of Systems Service Date: 12/23/16 Subjective: Patient is still agitated. Patient still in GeroPsych Unit. Objective - Results Result Diagrams: 12/22/16 07:55 12/22/16 07:55 Recent Labs: Laboratory Last Values WBC 6.1 Th/cmm (4.8-10.8) 12/22/16 07:55 RBC 5.33 Mil/cmm (3.80-5.80) 12/22/16 07:55 Hgb 15.7 gm/dL (12.6-17.4) 12/22/16 07:55 Hct 46.9 % (39.0-49.0) 12/22/16 07:55 MCV 88.0 fl (80-99) 12/22/16 07:55 MCH 29.4 pg (27.0-31.0) 12/22/16 07:55 MCHC Differential 33.4 pg (28.0-36.0) 12/22/16 07:55 RDW 17.2 % (11.5-20.0) 12/22/16 07:55 Plt Count 231 Th/cmm (150-400) 12/22/16 07:55 MPV 7.6 fl 12/22/16 07:55 Neutrophils % 52.4 % (40.0-80.0) 12/22/16 07:55 Band Neutrophils % 0 % (0-10) 12/19/16 06:38 Lymphocytes % 35.4 % (20.0-50.0) 12/22/16 07:55 Monocytes % 8.7 % (2.0-10.0) 12/22/16 07:55 Eosinophils % 2.7 % (0.0-5.0) 12/22/16 07:55 Basophils % 0.8 % (0.0-2.0) 12/22/16 07:55 Neutrophils (Manual) 52 % (40-80) 12/19/16 06:38 Lymphocytes 35 % (20-50) 12/19/16 06:38 Monocytes 13 % (2-10) H 12/19/16 06:38 Platelet Estimate ADEQUATE (NORMAL) 12/19/16 06:38 Sodium 137 mEq/L (136-145) 12/22/16 07:55 Potassium 3.7 mEq/L (3.5-5.1) 12/22/16 07:55 Chloride 104 mEq/L (98-107) 12/22/16 07:55 Carbon Dioxide 31.9 mEq/L (21.0-31.0) H 12/22/16 07:55 Anion Gap 4.8 (7.0-16.0) L 12/22/16 07:55 BUN 16 mg/dL (7-25) 12/22/16 07:55 Creatinine 0.8 mg/dL (0.7-1.3) 12/22/16 07:55 Est GFR ( Amer) TNP 12/22/16 07:55 Est GFR (Non-Af Amer) TNP 12/22/16 07:55 BUN/Creatinine Ratio 20.0 12/22/16 07:55 Glucose 128 mg/dL (70-105) H 12/22/16 07:55 Calcium 9.7 mg/dL (8.6-10.3) 12/22/16 07:55 - Physical Exam Vitals and I&O: Vital Signs Temp 97.3 F 12/23/16 06:18 Pulse 79 12/23/16 08:50 Resp 20 12/23/16 06:18 BP 124/80 12/23/16 08:51 Pulse Ox 96 12/23/16 06:18 Intake & Output 12/22/16 12/23/16 12/23/16 18:59 06:59 18:59 Intake Total 2200 120 Balance 2200 120 Intake: Oral 2200 120 Other: # Voids 4 3 # Bowel Movements 0 Stool Characteristics Soft Formed Active Medications: Current Medications Acetaminophen (Tylenol) 650 mg PO Q4HR PRN PRN Reason: Mild Pain/Fever Stop: 02/14/17 13:42 Acetaminophen/Hydrocodone Bitart ([place] 5mg/325mg) 1 tab PO Q6H PRN PRN Reason: moderate pain Stop: 02/14/17 14:37 Al Hydrox/Mg Hydrox/Simethicone (Maalox) 30 ml PO Q4HR PRN PRN Reason: GI DISTRESS Stop: 02/14/17 13:42 Albuterol Sulfate (Albuterol 2.5mg/3ml Neb Ud) 2.5 mg HHN Q6HR PRN PRN Reason: shortness of breath Stop: 02/14/17 13:42 Ascorbic Acid (Vitamin C) 500 mg PO DAILY [facility] Stop: 02/15/17 08:59 Last Admin: 12/23/16 08:47 Dose: 500 mg Atorvastatin Calcium (Lipitor) 10 mg PO DAILY [facility] PRN Reason: Protocol Stop: 02/15/17 08:59 Last Admin: 12/23/16 08:48 Dose: 10 mg Brimonidine Tartrate (Alphagan 0.15% Oph Soln) 1 drop EACH EYE HS [facility] Stop: 02/14/17 20:59 Last Admin: 12/22/16 20:30 Dose: 1 drop Carvedilol (Coreg) 3.125 mg PO BID [facility] Stop: 02/14/17 16:59 Last Admin: 12/23/16 08:49 Dose: 3.125 mg Clonidine HCl (Catapres) 0.1 mg PO Q4HR PRN PRN Reason: SBP ABOVE 160 Docusate Sodium (Colace) 250 mg PO DAILY PRN PRN Reason: Constipation Last Admin: 12/20/16 11:34 Dose: 250 mg Donepezil HCl (Aricept) 10 mg PO HS [facility] Stop: 02/18/17 10:24 Last Admin: 12/22/16 20:30 Dose: 10 mg Escitalopram Oxalate (Lexapro) 10 mg PO DAILY [facility] PRN Reason: Protocol Stop: 02/16/17 08:59 Last Admin: 12/23/16 08:49 Dose: 10 mg Folic Acid (Folate) 1 mg PO DAILY [facility] Stop: 02/15/17 08:59 Last Admin: 12/23/16 08:49 Dose: 1 mg Gabapentin (Neurontin) 300 mg PO DAILY [facility] Stop: 02/15/17 08:59 Last Admin: 12/23/16 08:50 Dose: 300 mg Hydrochlorothiazide (Hctz) 12.5 mg PO DAILY [facility] Stop: 02/15/17 08:59 Last Admin: 12/23/16 08:51 Dose: 12.5 mg Lorazepam (Ativan) 0.5 mg PO Q4HR PRN; Protocol PRN Reason: anxiety Stop: 02/15/17 10:30 Losartan Potassium (Cozaar) 50 mg PO DAILY [facility] Stop: 02/15/17 08:59 Last Admin: 12/23/16 08:50 Dose: 50 mg Magnesium Hydroxide (Milk Of Magnesia) 30 ml PO DAILY PRN PRN Reason: Constipation Stop: 02/18/17 15:25 Last Admin: 12/21/16 06:58 Dose: 30 ml Multivitamins/Vitamin C (Theragran) 1 tab PO DAILY [facility] Stop: 02/15/17 08:59 Last Admin: 12/23/16 08:49 Dose: 1 tab Ondansetron HCl (Zofran Odt) 4 mg PO Q6H PRN PRN Reason: Nausea / Vomiting Stop: 02/14/17 14:36 Pantoprazole Sodium (Protonix) 40 mg PO DAILY [facility] Stop: 02/15/17 08:59 Last Admin: 12/23/16 08:48 Dose: 40 mg Quetiapine Fumarate (Seroquel) 25 mg PO BID [facility] PRN Reason: Protocol Stop: 02/15/17 16:59 Last Admin: 12/23/16 08:48 Dose: 25 mg Zinc Sulfate (Zinc Sulfate) 220 mg PO DAILY [facility] Stop: 02/15/17 08:59 Last Admin: 12/23/16 08:48 Dose: 220 mg General: no Alert, no Oriented x3, no Cooperative HEENT: Atraumatic, PERRLA, 6, EOMI, 7, Mucous membr. moist/pink, Other, 8, 9, 10 , 11, 12, 13, 14, 15, 16, 22, 17, 23, 18, 24, 19, 20, 21 Neck: Supple, JVD, Thyromegaly, +2 carotid pulse wo bruit, LAD, Other Cardiovascular: Normal S1, Normal S2 Lungs: Clear to auscultation, Normal air movement Abdomen: Bowel sounds, Soft Extremities: no Clubbing, no Cyanosis, no Edema, no Pulses, no Tender, no Other Neurological: Sensation intact, Cranial nerves 3-12 NL, no Normal gait, no Strength at 5/5 X4 ext Skin: no Rash, no Breakdown, no Significant lesion, no Other Psych/Mental Status: no Mental status NL, no Mood NL - Procedures Procedures: Procedures Procedure Code Date GROUP PSYCHOTHERAPY 13842 11/07/15 GROUP PSYCHOTHERAPY GZHZZZZ 11/07/15 Assessment/Plan - Problem List Patient Problems: All Active Problems Dementia (Acute) F03.90 COPD (chronic obstructive pulmonary disease) (Acute) Diabetes mellitus (Acute) E11.9 Hypertension (Acute) I10 Schizophrenia (Acute) F20.9 - Assessment Assessment: Dementia (Acute) F03.90 Schizophrenia (Acute) F20.9 COPD (chronic obstructive pulmonary disease) (Acute) Diabetes mellitus (Acute) E11.9 Hypertension (Acute) I10 Debility - Plan Plan: * Continue current medications * Obtain PT evaluation * Further per psychiatry Nutritional Asmnt/Malnutr-PDOC - Dietary Evaluation Malnutrition Findings (Please click <Entered> for more info): Nutritional Asmnt/Malnutrition Start: 12/18/16 16: 05 Text: Status: Complete Freq: Document 12/18/16 16:05 GSUN (Rec: 12/18/16 16:10 GSUN [email or web address]) Nutritional Asmnt/Malnutrition Patient General Information Nutritional Screening Moderate Risk Screening Diagnosis Reason for visit: psychosis Pertinent Medical Hx/Surgical Hx HTN, hyperlipidemia, dementia, TIA, constipation, psychosis, depression, schizophrenia, COPD, DM, debility Subjective Information 76 year old male. Pt transfered from [facility]. RD visited pt before at [facility] unit, pt was confused, talking to self, refusing meals. RD spoke to pt in bed eating during meal time today. Pt was pleasant, slightly confused, slightly slurred speech, however alert to answer simple questions. Most teeth intact, able to self feed, no difficulties noted. Pt denied nutritional concerns, deneid allergies, denied GI problems, requested for ice cream. Bedscale CBW 233lb. No severe wasting noted. Avg PO intake 100% of meals since adm, meeting nutritional needs. DM noted, no labs at this time, pt is not on insulin, glucose levels at [facility] 73: 83 7/4: 71 WNLs, will keep pt on low sodium diet and monitor is able, discussed with JOE Lamas . Current Diet Order/ Nutrition Support Low sodium Pertinent Medications Maalox, Vitamin C, Lipitor, Colace, Folate, Theragran, Zofran, Protonix, Seroquel, Zinc Sulfate Pertinent Labs No new labs. Nutritional Hx/Data Height 1.78 m Height (Calculated Centimeters) 177.8 Current Weight (lbs) 105.687 kg Weight (Calculated Kilograms) 105.7 Weight (Calculated Grams) 044721.0 Stella Body Weight 166 Weight Status Obese GI Symptoms Food Allergies No Skin Integrity/Comment: Mikhail 20. Skin intact. Current %PO Good (75-100%) Estimated Nutritional Goals Calories/Kcals/Kg IBW 166lb/75.5kg (questionable weights on EMR) Kcals Calculated 1888-2265kcal (25-30kcal/kg) Protein Calculated 76g (1g/kg) Fluid: ml 1888-2265ml (1ml/kcal) Nutritional Problem 1. Problem Problem No nutritional problem at this time. Intervention/Recommendation Comments 1. Continue with low sodium diet. Avg PO intake is adequate. 2. DM noted in H&P, no labs at this time, pt is not on insulin, glucose levels at [facility] 7/3: 83 7/4: 71 WNLs. Recommend monitor glucose levels. Recommend [id number] if needed. Expected Outcomes/Goals Expected Outcomes/Goals 1. PO intake to meet at least 75% of estimated nutritional needs.
[2016-12-24 08:03] LABS: % BASOPHILS 1.1 % (0.0-2.0); % EOSINOPHILS 2.8 % (0.0-5.0); % LYMPHOCYTES 34.3 % (20.0-50.0); % MONOCYTES 11.3 % (2.0-10.0); % NEUTROPHILS 50.5 % (40.0-80.0); HEMATOCRIT 45.7 % (39.0-49.0); HEMOGLOBIN 15.1 gm/dL (12.6-17.4); MEAN CORPUSCULAR HEMOGLOBIN 29.3 pg (27.0-31.0); MEAN CORPUSCULAR HGB CONC 32.9 pg (28.0-36.0); MEAN PLATELET VOLUME 7.2 fl; NEUTROPHILE ABSOLUTE 3.3 Th/cmm (1.8-8.0); PLATELET COUNT 244 Th/cmm (150-400); RED BLOOD COUNT 5.14 Mil/cmm (3.80-5.80); RED CELL DISTRIBUTION WIDTH 17.2 % (11.5-20.0); WHITE BLOOD COUNT 6.6 Th/cmm (4.8-10.8)
[2016-12-24 08:21] LABS: ANION GAP 3.9 (7.0-16.0); BUN - UREA NITROGEN 18 mg/dL (7-25); BUN/CREATININE RATIO 22.5; CALCIUM SERUM 9.5 mg/dL (8.6-10.3); CHLORIDE 105 mEq/L (98-107); CREATININE - SERUM 0.8 mg/dL (0.7-1.3); GLUCOSE 87 mg/dL (70-105); POTASSIUM SERUM 3.9 mEq/L (3.5-5.1); SODIUM SERUM 136 mEq/L (136-145)
[2016-12-24] MEDS: Venelex 60gm Tube TP SCH (09:09)
[2016-12-24] MEDS: Atorvastatin Calcium 10 MG TAB PO SCH (09:09)
[2016-12-24] MEDS: Pantoprazole 40 mg EC Tab PO SCH (09:12)
[2016-12-24] MEDS: Multivitamin Tab PO SCH (09:12)
--- NOTE | 2016-12-24 15:03 | General Progress Note ---
Subjective - Review of Systems Service Date: 12/24/16 Subjective: Patient is still agitated. Patient still in GeroPsych Unit. Objective - Results Result Diagrams: 12/24/16 07:50 12/24/16 07:50 Recent Labs: Laboratory Last Values WBC 6.6 Th/cmm (4.8-10.8) 12/24/16 07:50 RBC 5.14 Mil/cmm (3.80-5.80) 12/24/16 07:50 Hgb 15.1 gm/dL (12.6-17.4) 12/24/16 07:50 Hct 45.7 % (39.0-49.0) 12/24/16 07:50 MCV 89.0 fl (80-99) 12/24/16 07:50 MCH 29.3 pg (27.0-31.0) 12/24/16 07:50 MCHC Differential 32.9 pg (28.0-36.0) 12/24/16 07:50 RDW 17.2 % (11.5-20.0) 12/24/16 07:50 Plt Count 244 Th/cmm (150-400) 12/24/16 07:50 MPV 7.2 fl 12/24/16 07:50 Neutrophils % 50.5 % (40.0-80.0) 12/24/16 07:50 Band Neutrophils % 0 % (0-10) 12/19/16 06:38 Lymphocytes % 34.3 % (20.0-50.0) 12/24/16 07:50 Monocytes % 11.3 % (2.0-10.0) H 12/24/16 07:50 Eosinophils % 2.8 % (0.0-5.0) 12/24/16 07:50 Basophils % 1.1 % (0.0-2.0) 12/24/16 07:50 Neutrophils (Manual) 52 % (40-80) 12/19/16 06:38 Lymphocytes 35 % (20-50) 12/19/16 06:38 Monocytes 13 % (2-10) H 12/19/16 06:38 Platelet Estimate ADEQUATE (NORMAL) 12/19/16 06:38 Sodium 136 mEq/L (136-145) 12/24/16 07:50 Potassium 3.9 mEq/L (3.5-5.1) 12/24/16 07:50 Chloride 105 mEq/L (98-107) 12/24/16 07:50 Carbon Dioxide 31.0 mEq/L (21.0-31.0) 12/24/16 07:50 Anion Gap 3.9 (7.0-16.0) L 12/24/16 07:50 BUN 18 mg/dL (7-25) 12/24/16 07:50 Creatinine 0.8 mg/dL (0.7-1.3) 12/24/16 07:50 Est GFR ( Amer) TNP 12/24/16 07:50 Est GFR (Non-Af Amer) TNP 12/24/16 07:50 BUN/Creatinine Ratio 22.5 12/24/16 07:50 Glucose 87 mg/dL (70-105) 12/24/16 07:50 Calcium 9.5 mg/dL (8.6-10.3) 12/24/16 07:50 - Physical Exam Vitals and I&O: Vital Signs Temp 976 F 12/24/16 06:22 Pulse 72 12/24/16 09:12 Resp 20 12/24/16 08:00 BP 124/71 12/24/16 09:12 Pulse Ox 98 12/24/16 06:22 Intake & Output 12/23/16 12/24/16 12/24/16 18:59 06:59 18:59 Intake Total 440 Balance 440 Intake: Oral 240 Other 200 Other: # Voids 3 Active Medications: Current Medications Acetaminophen (Tylenol) 650 mg PO Q4HR PRN PRN Reason: Mild Pain/Fever Stop: 02/14/17 13:42 Al Hydrox/Mg Hydrox/Simethicone (Maalox) 30 ml PO Q4HR PRN PRN Reason: GI DISTRESS Stop: 02/14/17 13:42 Albuterol Sulfate (Albuterol 2.5mg/3ml Neb Ud) 2.5 mg HHN Q6HR PRN PRN Reason: shortness of breath Stop: 02/14/17 13:42 Ascorbic Acid (Vitamin C) 500 mg PO DAILY [facility] Stop: 02/15/17 08:59 Last Admin: 12/24/16 09:09 Dose: 500 mg Atorvastatin Calcium (Lipitor) 10 mg PO DAILY [facility] PRN Reason: Protocol Stop: 02/15/17 08:59 Last Admin: 12/24/16 09:09 Dose: 10 mg Brimonidine Tartrate (Alphagan 0.15% Oph Soln) 1 drop EACH EYE HS [facility] Stop: 02/14/17 20:59 Last Admin: 12/23/16 20:19 Dose: 1 drop Carvedilol (Coreg) 3.125 mg PO BID [facility] Stop: 02/14/17 16:59 Last Admin: 12/24/16 09:09 Dose: 3.125 mg Clonidine HCl (Catapres) 0.1 mg PO Q4HR PRN PRN Reason: SBP ABOVE 160 Docusate Sodium (Colace) 250 mg PO DAILY PRN PRN Reason: Constipation Last Admin: 12/20/16 11:34 Dose: 250 mg Donepezil HCl (Aricept) 10 mg PO HS [facility] Stop: 02/21/17 20:59 Last Admin: 12/23/16 20:19 Dose: 10 mg Escitalopram Oxalate (Lexapro) 10 mg PO DAILY [facility] PRN Reason: Protocol Stop: 02/16/17 08:59 Last Admin: 12/24/16 09:10 Dose: 10 mg Folic Acid (Folate) 1 mg PO DAILY [facility] Stop: 02/15/17 08:59 Last Admin: 12/24/16 09:10 Dose: 1 mg Gabapentin (Neurontin) 300 mg PO DAILY [facility] Stop: 02/15/17 08:59 Last Admin: 12/24/16 09:11 Dose: 300 mg Hydrochlorothiazide (Hctz) 12.5 mg PO DAILY [facility] Stop: 02/15/17 08:59 Last Admin: 12/24/16 09:11 Dose: 12.5 mg Lorazepam (Ativan) 0.5 mg PO Q4HR PRN; Protocol PRN Reason: anxiety Stop: 02/15/17 10:30 Losartan Potassium (Cozaar) 50 mg PO DAILY [facility] Stop: 02/15/17 08:59 Last Admin: 12/24/16 09:12 Dose: 50 mg Magnesium Hydroxide (Milk Of Magnesia) 30 ml PO DAILY PRN PRN Reason: Constipation Stop: 02/18/17 15:25 Last Admin: 12/21/16 06:58 Dose: 30 ml Memantine (Namenda) 5 mg PO DAILY [facility] Stop: 02/22/17 08:59 Multivitamins/Vitamin C (Theragran) 1 tab PO DAILY [facility] Stop: 02/15/17 08:59 Last Admin: 12/24/16 09:12 Dose: 1 tab Ondansetron HCl (Zofran Odt) 4 mg PO Q6H PRN PRN Reason: Nausea / Vomiting Stop: 02/14/17 14:36 Pantoprazole Sodium (Protonix) 40 mg PO DAILY [facility] Stop: 02/15/17 08:59 Last Admin: 12/24/16 09:12 Dose: 40 mg Quetiapine Fumarate (Seroquel) 25 mg PO BID [facility] PRN Reason: Protocol Stop: 02/15/17 16:59 Last Admin: 12/24/16 09:12 Dose: 25 mg Zinc Sulfate (Zinc Sulfate) 220 mg PO DAILY [facility] Stop: 02/15/17 08:59 Last Admin: 12/24/16 09:12 Dose: 220 mg General: no Alert, no Oriented x3, no Cooperative HEENT: Atraumatic, PERRLA, 6, EOMI, 7, Mucous membr. moist/pink, Other, 8, 9, 10 , 11, 12, 13, 14, 15, 16, 22, 17, 23, 18, 24, 19, 20, 21 Neck: Supple, JVD, Thyromegaly, +2 carotid pulse wo bruit, LAD, Other Cardiovascular: Normal S1, Normal S2 Lungs: Clear to auscultation, Normal air movement Abdomen: Bowel sounds, Soft Extremities: no Clubbing, no Cyanosis, no Edema, no Pulses, no Tender, no Other Neurological: Sensation intact, Cranial nerves 3-12 NL, no Normal gait, no Strength at 5/5 X4 ext Skin: no Rash, no Breakdown, no Significant lesion, no Other Psych/Mental Status: no Mental status NL, no Mood NL - Procedures Procedures: Procedures Procedure Code Date GROUP PSYCHOTHERAPY 04550 11/07/15 GROUP PSYCHOTHERAPY GZHZZZZ 11/07/15 Assessment/Plan - Problem List Patient Problems: All Active Problems Dementia (Acute) F03.90 COPD (chronic obstructive pulmonary disease) (Acute) Diabetes mellitus (Acute) E11.9 Hypertension (Acute) I10 Schizophrenia (Acute) F20.9 - Assessment Assessment: Dementia (Acute) F03.90 Schizophrenia (Acute) F20.9 COPD (chronic obstructive pulmonary disease) (Acute) Diabetes mellitus (Acute) E11.9 Hypertension (Acute) I10 Debility - Plan Plan: * Continue current medications * Obtain PT evaluation * Further per psychiatry Nutritional Asmnt/Malnutr-PDOC - Dietary Evaluation Malnutrition Findings (Please click <Entered> for more info): Nutritional Asmnt/Malnutrition Start: 12/18/16 16: 05 Text: Status: Complete Freq: Document 12/18/16 16:05 [email or web address] (Rec: 12/18/16 16:10 [email or web address]) Nutritional Asmnt/Malnutrition Patient General Information Nutritional Screening Moderate Risk Screening Diagnosis Reason for visit: psychosis Pertinent Medical Hx/Surgical Hx HTN, hyperlipidemia, dementia, TIA, constipation, psychosis, depression, schizophrenia, COPD, DM, debility Subjective Information 76 year old male. Pt transfered from [facility]. RD visited pt before at [facility] unit, pt was confused, talking to self, refusing meals. RD spoke to pt in bed eating during meal time today. Pt was pleasant, slightly confused, slightly slurred speech, however alert to answer simple questions. Most teeth intact, able to self feed, no difficulties noted. Pt denied nutritional concerns, deneid allergies, denied GI problems, requested for ice cream. Bedscale CBW 233lb. No severe wasting noted. Avg PO intake 100% of meals since adm, meeting nutritional needs. DM noted, no labs at this time, pt is not on insulin, glucose levels at [facility] 7/3: 83 7/4: 71 WNLs, will keep pt on low sodium diet and monitor is able, discussed with JOE Lamas . Current Diet Order/ Nutrition Support Low sodium Pertinent Medications Maalox, Vitamin C, Lipitor, Colace, Folate, Theragran, Zofran, Protonix, Seroquel, Zinc Sulfate Pertinent Labs No new labs. Nutritional Hx/Data Height 1.78 m Height (Calculated Centimeters) 177.8 Current Weight (lbs) 105.687 kg Weight (Calculated Kilograms) 105.7 Weight (Calculated Grams) 820664.0 [place] Body Weight 166 Weight Status Obese GI Symptoms Food Allergies No Skin Integrity/Comment: Mikhail 20. Skin intact. Current %PO Good (75-100%) Estimated Nutritional Goals Calories/Kcals/Kg IBW 166lb/75.5kg (questionable weights on EMR) Kcals Calculated 1888-2265kcal (25-30kcal/kg) Protein Calculated 76g (1g/kg) Fluid: ml 1888-2265ml (1ml/kcal) Nutritional Problem 1. Problem Problem No nutritional problem at this time. Intervention/Recommendation Comments 1. Continue with low sodium diet. Avg PO intake is adequate. 2. DM noted in H&P, no labs at this time, pt is not on insulin, glucose levels at [facility] 73: 83 7/4: 71 WNLs. Recommend monitor glucose levels. Recommend [id number] if needed. Expected Outcomes/Goals Expected Outcomes/Goals 1. PO intake to meet at least 75% of estimated nutritional needs.
[2016-12-24] MEDS ORDERED: Hydrocodone/APAP 5mg/325mg Tab PO PRN (16:05)
[2016-12-25] MEDS: Multivitamin Tab PO SCH (08:31)
[2016-12-25] MEDS: Atorvastatin Calcium 10 MG TAB PO SCH (08:33)
[2016-12-25] MEDS: Pantoprazole 40 mg EC Tab PO SCH (08:33)
[2016-12-25] MEDS: Venelex 60gm Tube TP SCH (09:00)
--- NOTE | 2016-12-25 09:29 | General Progress Note ---
Subjective - Review of Systems Service Date: 12/25/16 Subjective: Patient is still agitated. Patient still in GeroPsych Unit. Objective - Results Result Diagrams: 12/24/16 07:50 12/24/16 07:50 Recent Labs: Laboratory Last Values WBC 6.6 Th/cmm (4.8-10.8) 12/24/16 07:50 RBC 5.14 Mil/cmm (3.80-5.80) 12/24/16 07:50 Hgb 15.1 gm/dL (12.6-17.4) 12/24/16 07:50 Hct 45.7 % (39.0-49.0) 12/24/16 07:50 MCV 89.0 fl (80-99) 12/24/16 07:50 MCH 29.3 pg (27.0-31.0) 12/24/16 07:50 MCHC Differential 32.9 pg (28.0-36.0) 12/24/16 07:50 RDW 17.2 % (11.5-20.0) 12/24/16 07:50 Plt Count 244 Th/cmm (150-400) 12/24/16 07:50 MPV 7.2 fl 12/24/16 07:50 Neutrophils % 50.5 % (40.0-80.0) 12/24/16 07:50 Band Neutrophils % 0 % (0-10) 12/19/16 06:38 Lymphocytes % 34.3 % (20.0-50.0) 12/24/16 07:50 Monocytes % 11.3 % (2.0-10.0) H 12/24/16 07:50 Eosinophils % 2.8 % (0.0-5.0) 12/24/16 07:50 Basophils % 1.1 % (0.0-2.0) 12/24/16 07:50 Neutrophils (Manual) 52 % (40-80) 12/19/16 06:38 Lymphocytes 35 % (20-50) 12/19/16 06:38 Monocytes 13 % (2-10) H 12/19/16 06:38 Platelet Estimate ADEQUATE (NORMAL) 12/19/16 06:38 Sodium 136 mEq/L (136-145) 12/24/16 07:50 Potassium 3.9 mEq/L (3.5-5.1) 12/24/16 07:50 Chloride 105 mEq/L (98-107) 12/24/16 07:50 Carbon Dioxide 31.0 mEq/L (21.0-31.0) 12/24/16 07:50 Anion Gap 3.9 (7.0-16.0) L 12/24/16 07:50 BUN 18 mg/dL (7-25) 12/24/16 07:50 Creatinine 0.8 mg/dL (0.7-1.3) 12/24/16 07:50 Est GFR ( Amer) TNP 12/24/16 07:50 Est GFR (Non-Af Amer) TNP 12/24/16 07:50 BUN/Creatinine Ratio 22.5 12/24/16 07:50 Glucose 87 mg/dL (70-105) 12/24/16 07:50 Calcium 9.5 mg/dL (8.6-10.3) 12/24/16 07:50 - Physical Exam Vitals and I&O: Vital Signs Temp 97.6 F 12/25/16 06:06 Pulse 69 12/25/16 08:33 Resp 19 12/25/16 06:06 BP 114/62 12/25/16 08:33 Pulse Ox 96 12/25/16 06:06 Intake & Output 12/24/16 12/25/16 12/25/16 18:59 06:59 18:59 Intake Total 240 Balance 240 Intake: Oral 240 Other: # Voids 2 # Bowel Movements 0 Active Medications: Current Medications Acetaminophen (Tylenol) 650 mg PO Q4HR PRN PRN Reason: Mild Pain/Fever Stop: 02/14/17 13:42 Acetaminophen/Hydrocodone Bitart ([place] 5mg/325mg) 1 tab PO Q6H PRN PRN Reason: Pain (Moderate) Al Hydrox/Mg Hydrox/Simethicone (Maalox) 30 ml PO Q4HR PRN PRN Reason: GI DISTRESS Stop: 02/14/17 13:42 Albuterol Sulfate (Albuterol 2.5mg/3ml Neb Ud) 2.5 mg HHN Q6HR PRN PRN Reason: shortness of breath Stop: 02/14/17 13:42 Ascorbic Acid (Vitamin C) 500 mg PO DAILY [facility] Stop: 02/15/17 08:59 Last Admin: 12/25/16 08:35 Dose: 500 mg Atorvastatin Calcium (Lipitor) 10 mg PO DAILY [facility] PRN Reason: Protocol Stop: 02/15/17 08:59 Last Admin: 12/25/16 08:33 Dose: 10 mg Brimonidine Tartrate (Alphagan 0.15% Ophth Soln) 1 drop EACH EYE HS [facility] Stop: 02/14/17 20:59 Last Admin: 12/24/16 20:48 Dose: 1 drop Carvedilol (Coreg) 3.125 mg PO BID [facility] Stop: 02/14/17 16:59 Last Admin: 12/25/16 08:33 Dose: 3.125 mg Clonidine HCl (Catapres) 0.1 mg PO Q4HR PRN PRN Reason: SBP ABOVE 160 Docusate Sodium (Colace) 250 mg PO DAILY PRN PRN Reason: Constipation Last Admin: 12/20/16 11:34 Dose: 250 mg Donepezil HCl (Aricept) 10 mg PO HS [facility] Stop: 02/21/17 20:59 Last Admin: 12/24/16 20:48 Dose: 10 mg Escitalopram Oxalate (Lexapro) 10 mg PO DAILY [facility] PRN Reason: Protocol Stop: 02/16/17 08:59 Last Admin: 12/25/16 08:31 Dose: 10 mg Folic Acid (Folate) 1 mg PO DAILY [facility] Stop: 02/15/17 08:59 Last Admin: 12/25/16 08:31 Dose: 1 mg Gabapentin (Neurontin) 300 mg PO DAILY [facility] Stop: 02/15/17 08:59 Last Admin: 12/25/16 08:31 Dose: 300 mg Hydrochlorothiazide (Hctz) 12.5 mg PO DAILY [facility] Stop: 02/15/17 08:59 Last Admin: 12/25/16 08:32 Dose: 12.5 mg Lorazepam (Ativan) 0.5 mg PO Q4HR PRN; Protocol PRN Reason: anxiety Stop: 02/15/17 10:30 Losartan Potassium (Cozaar) 50 mg PO DAILY [facility] Stop: 02/15/17 08:59 Last Admin: 12/25/16 08:31 Dose: 50 mg Magnesium Hydroxide (Milk Of Magnesia) 30 ml PO DAILY PRN PRN Reason: Constipation Stop: 02/18/17 15:25 Last Admin: 12/21/16 06:58 Dose: 30 ml Memantine (Namenda) 5 mg PO DAILY [facility] Stop: 02/22/17 08:59 Last Admin: 12/25/16 08:33 Dose: 5 mg Multivitamins/Vitamin C (Theragran) 1 tab PO DAILY [facility] Stop: 02/15/17 08:59 Last Admin: 12/25/16 08:31 Dose: 1 tab Ondansetron HCl (Zofran Odt) 4 mg PO Q6H PRN PRN Reason: Nausea / Vomiting Stop: 02/14/17 14:36 Pantoprazole Sodium (Protonix) 40 mg PO DAILY [facility] Stop: 02/15/17 08:59 Last Admin: 12/25/16 08:33 Dose: 40 mg Quetiapine Fumarate (Seroquel) 25 mg PO BID [facility] PRN Reason: Protocol Stop: 02/15/17 16:59 Last Admin: 12/25/16 08:34 Dose: 25 mg Zinc Sulfate (Zinc Sulfate) 220 mg PO DAILY [facility] Stop: 02/15/17 08:59 Last Admin: 12/25/16 08:34 Dose: 220 mg General: Alert, No acute distress, no Oriented x3 HEENT: Atraumatic, PERRLA, 6, EOMI, 7, Mucous membr. moist/pink, Other, 8, 9, 10 , 11, 12, 13, 14, 15, 16, 22, 17, 23, 18, 24, 19, 20, 21 Neck: Supple, JVD, Thyromegaly, +2 carotid pulse wo bruit, LAD, Other Cardiovascular: Regular rate, Normal S1, Normal S2 Lungs: Clear to auscultation, Normal air movement Abdomen: Bowel sounds, Soft Extremities: no Clubbing, no Cyanosis, no Edema, no Pulses, no Tender, no Other Neurological: Sensation intact, Cranial nerves 3-12 NL, no Normal gait, no Strength at 5/5 X4 ext Skin: no Rash, no Breakdown, no Significant lesion, no Other Psych/Mental Status: no Mental status NL, no Mood NL - Procedures Procedures: Procedures Procedure Code Date GROUP PSYCHOTHERAPY 57658 11/07/15 GROUP PSYCHOTHERAPY GZHZZZZ 11/07/15 Assessment/Plan - Problem List Patient Problems: All Active Problems Dementia (Acute) F03.90 COPD (chronic obstructive pulmonary disease) (Acute) Diabetes mellitus (Acute) E11.9 Hypertension (Acute) I10 Schizophrenia (Acute) F20.9 - Assessment Assessment: Dementia (Acute) F03.90 Schizophrenia (Acute) F20.9 COPD (chronic obstructive pulmonary disease) (Acute) Diabetes mellitus (Acute) E11.9 Hypertension (Acute) I10 Debility - Plan Plan: * Continue current medications * Obtain labs in am * Further per psychiatry Nutritional Asmnt/Malnutr-PDOC - Dietary Evaluation Malnutrition Findings (Please click <Entered> for more info): Nutritional Asmnt/Malnutrition Start: 12/18/16 16: 05 Text: Status: Complete Freq: Document 12/18/16 16:05 REJI (Rec: 12/18/16 16:10 RODY [email or web address]) Nutritional Asmnt/Malnutrition Patient General Information Nutritional Screening Moderate Risk Screening Diagnosis Reason for visit: psychosis Pertinent Medical Hx/Surgical Hx HTN, hyperlipidemia, dementia, TIA, constipation, psychosis, depression, schizophrenia, COPD, DM, debility Subjective Information 76 year old male. Pt transfered from [facility]. RD visited pt before at [facility] unit, pt was confused, talking to self, refusing meals. RD spoke to pt in bed eating during meal time today. Pt was pleasant, slightly confused, slightly slurred speech, however alert to answer simple questions. Most teeth intact, able to self feed, no difficulties noted. Pt denied nutritional concerns, deneid allergies, denied GI problems, requested for ice cream. Bedscale CBW 233lb. No severe wasting noted. Avg PO intake 100% of meals since adm, meeting nutritional needs. DM noted, no labs at this time, pt is not on insulin, glucose levels at [facility] 7/3: 83 7/4: 71 WNLs, will keep pt on low sodium diet and monitor is able, discussed with JOE Lamas . Current Diet Order/ Nutrition Support Low sodium Pertinent Medications Maalox, Vitamin C, Lipitor, Colace, Folate, Theragran, Zofran, Protonix, Seroquel, Zinc Sulfate Pertinent Labs No new labs. Nutritional Hx/Data Height 1.78 m Height (Calculated Centimeters) 177.8 Current Weight (lbs) 105.687 kg Weight (Calculated Kilograms) 105.7 Weight (Calculated Grams) 899105.0 [place] Body Weight 166 Weight Status Obese GI Symptoms Food Allergies No Skin Integrity/Comment: Mikhail 20. Skin intact. Current %PO Good (75-100%) Estimated Nutritional Goals Calories/Kcals/Kg IBW 166lb/75.5kg (questionable weights on EMR) Kcals Calculated 1888-2265kcal (25-30kcal/kg) Protein Calculated 76g (1g/kg) Fluid: ml 1888-2265ml (1ml/kcal) Nutritional Problem 1. Problem Problem No nutritional problem at this time. Intervention/Recommendation Comments 1. Continue with low sodium diet. Avg PO intake is adequate. 2. DM noted in H&P, no labs at this time, pt is not on insulin, glucose levels at [facility] 7/3: 83 7/4: 71 WNLs. Recommend monitor glucose levels. Recommend [id number] if needed. Expected Outcomes/Goals Expected Outcomes/Goals 1. PO intake to meet at least 75% of estimated nutritional needs.
[2016-12-26 08:59] LABS: ANION GAP 7.4 (7.0-16.0); BUN - UREA NITROGEN 19 mg/dL (7-25); BUN/CREATININE RATIO 21.1; CALCIUM SERUM 9.2 mg/dL (8.6-10.3); CARBON DIOXIDE 28.1 mEq/L (21.0-31.0); CHLORIDE 103 mEq/L (98-107); CREATININE - SERUM 0.9 mg/dL (0.7-1.3); GLUCOSE 168 mg/dL (70-105); POTASSIUM SERUM 3.5 mEq/L (3.5-5.1); SODIUM SERUM 135 mEq/L (136-145)
[2016-12-26] MEDS: Pantoprazole 40 mg EC Tab PO SCH (09:17)
[2016-12-26] MEDS: Atorvastatin Calcium 10 MG TAB PO SCH (09:17)
[2016-12-26] MEDS: Multivitamin Tab PO SCH (09:17)
[2016-12-26 10:17] LABS: % LYMPHOCYTES 34.8 % (20.0-50.0); % MONOCYTES 7.6 % (2.0-10.0); HEMATOCRIT 44.7 % (39.0-49.0); HEMOGLOBIN 14.5 gm/dL (12.6-17.4); MEAN CELL VOLUME 89.6 fl (80-99); MEAN CORPUSCULAR HEMOGLOBIN 29.1 pg (27.0-31.0); MEAN CORPUSCULAR HGB CONC 32.5 pg (28.0-36.0); MEAN PLATELET VOLUME 7.9 fl; PLATELET COUNT 250 Th/cmm (150-400); RED BLOOD COUNT 4.99 Mil/cmm (3.80-5.80); RED CELL DISTRIBUTION WIDTH 17.1 % (11.5-20.0); WHITE BLOOD COUNT 6.8 Th/cmm (4.8-10.8)
[2016-12-26 10:18] LABS: % BASOPHILS 0.1 % (0.0-2.0); % EOSINOPHILS 2.5 % (0.0-5.0); NEUTROPHILE ABSOLUTE 3.7 Th/cmm (1.8-8.0)
[2016-12-26] MEDS: Venelex 60gm Tube TP SCH (15:30)
[2016-12-27] MEDS: Pantoprazole 40 mg EC Tab PO SCH (09:05)
[2016-12-27] MEDS: Atorvastatin Calcium 10 MG TAB PO SCH (09:05)
[2016-12-27] MEDS: Multivitamin Tab PO SCH (09:06)
[2016-12-27] MEDS: Venelex 60gm Tube TP SCH (09:11)
[2016-12-28] MEDS: Multivitamin Tab PO SCH (09:29)
[2016-12-28] MEDS: Atorvastatin Calcium 10 MG TAB PO SCH (09:29)
[2016-12-28] MEDS: Pantoprazole 40 mg EC Tab PO SCH (09:29)
[2016-12-28] MEDS: Venelex 60gm Tube TP SCH (15:43)
--- NOTE | 2016-12-28 19:41 | Infectious Disease Prog Note ---
Infectious Disease Subjective - Review of Systems Service Date: 12/28/16 Subjective: cc copd depression hpi- pt on antidepressant tolearting well ros no fver o/e vs chest claer abd soft ext no edeam fdx dm htn copd contime samme dmediaction Infectious Disease Objective - Results Result Diagrams: 12/26/16 08:10 12/26/16 08:10 Recent Labs: Laboratory Last Values WBC 6.8 Th/cmm (4.8-10.8) 12/26/16 08:10 RBC 4.99 Mil/cmm (3.80-5.80) 12/26/16 08:10 Hgb 14.5 gm/dL (12.6-17.4) 12/26/16 08:10 Hct 44.7 % (39.0-49.0) 12/26/16 08:10 MCV 89.6 fl (80-99) 12/26/16 08:10 MCH 29.1 pg (27.0-31.0) 12/26/16 08:10 MCHC Differential 32.5 pg (28.0-36.0) 12/26/16 08:10 RDW 17.1 % (11.5-20.0) 12/26/16 08:10 Plt Count 250 Th/cmm (150-400) 12/26/16 08:10 MPV 7.9 fl 12/26/16 08:10 Neutrophils % 55.0 % (40.0-80.0) 12/26/16 08:10 Band Neutrophils % 0 % (0-10) 12/19/16 06:38 Lymphocytes % 34.8 % (20.0-50.0) 12/26/16 08:10 Monocytes % 7.6 % (2.0-10.0) 12/26/16 08:10 Eosinophils % 2.5 % (0.0-5.0) 12/26/16 08:10 Basophils % 0.1 % (0.0-2.0) 12/26/16 08:10 Neutrophils (Manual) 52 % (40-80) 12/19/16 06:38 Lymphocytes 35 % (20-50) 12/19/16 06:38 Monocytes 13 % (2-10) H 12/19/16 06:38 Platelet Estimate ADEQUATE (NORMAL) 12/19/16 06:38 Sodium 135 mEq/L (136-145) L 12/26/16 08:10 Potassium 3.5 mEq/L (3.5-5.1) 12/26/16 08:10 Chloride 103 mEq/L (98-107) 12/26/16 08:10 Carbon Dioxide 28.1 mEq/L (21.0-31.0) 12/26/16 08:10 Anion Gap 7.4 (7.0-16.0) 12/26/16 08:10 BUN 19 mg/dL (7-25) 12/26/16 08:10 Creatinine 0.9 mg/dL (0.7-1.3) 12/26/16 08:10 Est GFR ( Amer) TNP 12/26/16 08:10 Est GFR (Non-Af Amer) TNP 12/26/16 08:10 BUN/Creatinine Ratio 21.1 12/26/16 08:10 Glucose 168 mg/dL (70-105) H 12/26/16 08:10 Calcium 9.2 mg/dL (8.6-10.3) 12/26/16 08:10 - Physical Exam Vitals and I&O: Vital Signs Temp 98.3 F 12/28/16 14:00 Pulse 74 12/28/16 14:00 Resp 20 12/28/16 14:00 BP 131/72 12/28/16 14:00 Pulse Ox 96 12/28/16 14:00 Intake & Output 12/28/16 12/28/16 12/29/16 06:59 18:59 06:59 Intake Total 900 Balance 900 Intake: Oral 900 Other: # Voids 3 # Bowel Movements 0 Active Medications: Current Medications Acetaminophen (Tylenol) 650 mg PO Q4HR PRN PRN Reason: Mild Pain/Fever Stop: 02/14/17 13:42 Acetaminophen/Hydrocodone Bitart (Cyclone 5mg/325mg) 1 tab PO Q6H PRN PRN Reason: Pain (Moderate) Al Hydrox/Mg Hydrox/Simethicone (Maalox) 30 ml PO Q4HR PRN PRN Reason: GI DISTRESS Stop: 02/14/17 13:42 Albuterol Sulfate (Albuterol 2.5mg/3ml Neb Ud) 2.5 mg HHN Q6HR PRN PRN Reason: shortness of breath Stop: 02/14/17 13:42 Ascorbic Acid (Vitamin C) 500 mg PO DAILY [facility] Stop: 02/15/17 08:59 Last Admin: 12/28/16 09:29 Dose: 500 mg Atorvastatin Calcium (Lipitor) 10 mg PO DAILY [facility] PRN Reason: Protocol Stop: 02/15/17 08:59 Last Admin: 12/28/16 09:29 Dose: 10 mg Brimonidine Tartrate (Alphagan 0.15% Ophth Soln) 1 drop EACH EYE HS [facility] Stop: 02/14/17 20:59 Last Admin: 12/27/16 21:05 Dose: 1 drop Carvedilol (Coreg) 3.125 mg PO BID [facility] Stop: 02/14/17 16:59 Last Admin: 12/28/16 17:13 Dose: Not Given Clonidine HCl (Catapres) 0.1 mg PO Q4HR PRN PRN Reason: SBP ABOVE 160 Docusate Sodium (Colace) 250 mg PO DAILY PRN PRN Reason: Constipation Last Admin: 12/20/16 11:34 Dose: 250 mg Donepezil HCl (Aricept) 10 mg PO HS [facility] Stop: 02/21/17 20:59 Last Admin: 12/27/16 21:05 Dose: 10 mg Escitalopram Oxalate (Lexapro) 10 mg PO DAILY [facility] PRN Reason: Protocol Stop: 02/16/17 08:59 Last Admin: 12/28/16 09:29 Dose: 10 mg Folic Acid (Folate) 1 mg PO DAILY [facility] Stop: 02/15/17 08:59 Last Admin: 12/28/16 09:29 Dose: 1 mg Gabapentin (Neurontin) 300 mg PO DAILY [facility] Stop: 02/15/17 08:59 Last Admin: 12/28/16 09:29 Dose: 300 mg Hydrochlorothiazide (Hctz) 12.5 mg PO DAILY [facility] Stop: 02/15/17 08:59 Last Admin: 12/28/16 15:44 Dose: Not Given Lorazepam (Ativan) 0.5 mg PO Q4HR PRN; Protocol PRN Reason: anxiety Stop: 02/15/17 10:30 Losartan Potassium (Cozaar) 50 mg PO DAILY [facility] Stop: 02/15/17 08:59 Last Admin: 12/28/16 15:44 Dose: Not Given Magnesium Hydroxide (Milk Of Magnesia) 30 ml PO DAILY PRN PRN Reason: Constipation Stop: 02/18/17 15:25 Last Admin: 12/21/16 06:58 Dose: 30 ml Memantine (Namenda) 5 mg PO DAILY [facility] Stop: 02/22/17 08:59 Last Admin: 12/28/16 09:29 Dose: 5 mg Multivitamins/Vitamin C (Theragran) 1 tab PO DAILY [facility] Stop: 02/15/17 08:59 Last Admin: 12/28/16 09:29 Dose: 1 tab Ondansetron HCl (Zofran Odt) 4 mg PO Q6H PRN PRN Reason: Nausea / Vomiting Stop: 02/14/17 14:36 Pantoprazole Sodium (Protonix) 40 mg PO DAILY [facility] Stop: 02/15/17 08:59 Last Admin: 12/28/16 09:29 Dose: 40 mg Quetiapine Fumarate (Seroquel) 25 mg PO BID [facility] PRN Reason: Protocol Stop: 02/15/17 16:59 Last Admin: 12/28/16 17:39 Dose: 25 mg Zinc Sulfate (Zinc Sulfate) 220 mg PO DAILY [facility] Stop: 02/15/17 08:59 Last Admin: 12/28/16 09:29 Dose: 220 mg - Procedures Procedures: Procedures Procedure Code Date GROUP PSYCHOTHERAPY 24494 11/07/15 GROUP PSYCHOTHERAPY GZHZZZZ 11/07/15 Infectious Disease Assmt/Plan - Problem List Patient Problems: All Active Problems Dementia (Acute) F03.90 COPD (chronic obstructive pulmonary disease) (Acute) Diabetes mellitus (Acute) E11.9 Hypertension (Acute) I10 Schizophrenia (Acute) F20.9 Nutritional Asmnt/Malnutr-PDOC - Dietary Evaluation Malnutrition Findings (Please click <Entered> for more info): Nutritional Asmnt/Malnutrition Start: 12/18/16 16: 05 Text: Status: Complete Freq: Document 12/18/16 16:05 [email or web address] (Rec: 12/18/16 16:10 RODY [email or web address]) Nutritional Asmnt/Malnutrition Patient General Information Nutritional Screening Moderate Risk Screening Diagnosis Reason for visit: psychosis Pertinent Medical Hx/Surgical Hx HTN, hyperlipidemia, dementia, TIA, constipation, psychosis, depression, schizophrenia, COPD, DM, debility Subjective Information 76 year old male. Pt transfered from [facility]. RD visited pt before at [facility] unit, pt was confused, talking to self, refusing meals. RD spoke to pt in bed eating during meal time today. Pt was pleasant, slightly confused, slightly slurred speech, however alert to answer simple questions. Most teeth intact, able to self feed, no difficulties noted. Pt denied nutritional concerns, deneid allergies, denied GI problems, requested for ice cream. Bedscale CBW 233lb. No severe wasting noted. Avg PO intake 100% of meals since adm, meeting nutritional needs. DM noted, no labs at this time, pt is not on insulin, glucose levels at [facility] 12/16: WNLs, will keep pt on low sodium diet and monitor is able, discussed with JOE Lamas . Current Diet Order/ Nutrition Support Low sodium Pertinent Medications Maalox, Vitamin C, Lipitor, Colace, Folate, Theragran, Zofran, Protonix, Seroquel, Zinc Sulfate Pertinent Labs No new labs. Nutritional Hx/Data Height 1.78 m Height (Calculated Centimeters) 177.8 Current Weight (lbs) 105.687 kg Weight (Calculated Kilograms) 105.7 Weight (Calculated Grams) 612390.0 [place] Body Weight 166 Weight Status Obese GI Symptoms Food Allergies No Skin Integrity/Comment: Mikhail Yusuf. Skin intact. Current %PO Good (75-100%) Estimated Nutritional Goals Calories/Kcals/Kg IBW 166lb/75.5kg (questionable weights on EMR) Kcals Calculated 1888-2265kcal (25-30kcal/kg) Protein Calculated 76g (1g/kg) Fluid: ml 1888-2265ml (1ml/kcal) Nutritional Problem 1. Problem Problem No nutritional problem at this time. Intervention/Recommendation Comments 1. Continue with low sodium diet. Avg PO intake is adequate. 2. DM noted in H&P, no labs at this time, pt is not on insulin, glucose levels at [facility] 12/16: 71 WNLs. Recommend monitor glucose levels. Recommend [id number] if needed. Expected Outcomes/Goals Expected Outcomes/Goals 1. PO intake to meet at least 75% of estimated nutritional needs.
[2016-12-29] MEDS: Pantoprazole 40 mg EC Tab PO SCH (08:51)
[2016-12-29] MEDS: Atorvastatin Calcium 10 MG TAB PO SCH (08:52)
[2016-12-29] MEDS: Multivitamin Tab PO SCH (08:53)
[2016-12-29] MEDS: Venelex 60gm Tube TP SCH (08:53)
[2016-12-30] MEDS: Atorvastatin Calcium 10 MG TAB PO SCH (09:55)
[2016-12-30] MEDS: Pantoprazole 40 mg EC Tab PO SCH (09:55)
[2016-12-30] MEDS: Multivitamin Tab PO SCH (09:55)
[2016-12-30] MEDS: Venelex 60gm Tube TP SCH (09:57)
--- NOTE | 2016-12-30 17:05 | General Progress Note ---
Subjective - Review of Systems Service Date: 12/29/16 Subjective: Patient is still agitated. Patient still in GeroPsych Unit. Objective - Results Result Diagrams: 12/26/16 08:10 12/26/16 08:10 Recent Labs: Laboratory Last Values WBC 6.8 Th/cmm (4.8-10.8) 12/26/16 08:10 RBC 4.99 Mil/cmm (3.80-5.80) 12/26/16 08:10 Hgb 14.5 gm/dL (12.6-17.4) 12/26/16 08:10 Hct 44.7 % (39.0-49.0) 12/26/16 08:10 MCV 89.6 fl (80-99) 12/26/16 08:10 MCH 29.1 pg (27.0-31.0) 12/26/16 08:10 MCHC Differential 32.5 pg (28.0-36.0) 12/26/16 08:10 RDW 17.1 % (11.5-20.0) 12/26/16 08:10 Plt Count 250 Th/cmm (150-400) 12/26/16 08:10 MPV 7.9 fl 12/26/16 08:10 Neutrophils % 55.0 % (40.0-80.0) 12/26/16 08:10 Band Neutrophils % 0 % (0-10) 12/19/16 06:38 Lymphocytes % 34.8 % (20.0-50.0) 12/26/16 08:10 Monocytes % 7.6 % (2.0-10.0) 12/26/16 08:10 Eosinophils % 2.5 % (0.0-5.0) 12/26/16 08:10 Basophils % 0.1 % (0.0-2.0) 12/26/16 08:10 Neutrophils (Manual) 52 % (40-80) 12/19/16 06:38 Lymphocytes 35 % (20-50) 12/19/16 06:38 Monocytes 13 % (2-10) H 12/19/16 06:38 Platelet Estimate ADEQUATE (NORMAL) 12/19/16 06:38 Sodium 135 mEq/L (136-145) L 12/26/16 08:10 Potassium 3.5 mEq/L (3.5-5.1) 12/26/16 08:10 Chloride 103 mEq/L (98-107) 12/26/16 08:10 Carbon Dioxide 28.1 mEq/L (21.0-31.0) 12/26/16 08:10 Anion Gap 7.4 (7.0-16.0) 12/26/16 08:10 BUN 19 mg/dL (7-25) 12/26/16 08:10 Creatinine 0.9 mg/dL (0.7-1.3) 12/26/16 08:10 Est GFR ( Amer) TNP 12/26/16 08:10 Est GFR (Non-Af Amer) TNP 12/26/16 08:10 BUN/Creatinine Ratio 21.1 12/26/16 08:10 Glucose 168 mg/dL (70-105) H 12/26/16 08:10 Calcium 9.2 mg/dL (8.6-10.3) 12/26/16 08:10 - Physical Exam Vitals and I&O: Vital Signs Temp 98.0 F 12/30/16 16:13 Pulse 78 12/30/16 16:13 Resp 20 12/30/16 16:13 BP 106/68 12/30/16 16:13 Pulse Ox 96 12/30/16 16:13 Intake & Output 12/29/16 12/30/16 12/30/16 18:59 06:59 18:59 Intake Total 1250 180 Balance 1250 180 Intake: Oral 1250 180 Other: # Voids 5 2 # Bowel Movements 2 0 Active Medications: Current Medications Acetaminophen (Tylenol) 650 mg PO Q4HR PRN PRN Reason: Mild Pain/Fever Stop: 02/14/17 13:42 Acetaminophen/Hydrocodone Bitart ([place] 5mg/325mg) 1 tab PO Q6H PRN PRN Reason: Pain (Moderate) Al Hydrox/Mg Hydrox/Simethicone (Maalox) 30 ml PO Q4HR PRN PRN Reason: GI DISTRESS Stop: 02/14/17 13:42 Albuterol Sulfate (Albuterol 2.5mg/3ml Neb Ud) 2.5 mg HHN Q6HR PRN PRN Reason: shortness of breath Stop: 02/14/17 13:42 Ascorbic Acid (Vitamin C) 500 mg PO DAILY [facility] Stop: 02/15/17 08:59 Last Admin: 12/30/16 09:55 Dose: 500 mg Atorvastatin Calcium (Lipitor) 10 mg PO DAILY [facility] PRN Reason: Protocol Stop: 02/15/17 08:59 Last Admin: 12/30/16 09:55 Dose: 10 mg Brimonidine Tartrate (Alphagan 0.15% Ophth Soln) 1 drop EACH EYE HS [facility] Stop: 02/14/17 20:59 Last Admin: 12/29/16 21:21 Dose: 1 drop Carvedilol (Coreg) 3.125 mg PO BID [facility] Stop: 02/14/17 16:59 Last Admin: 12/30/16 16:12 Dose: Not Given Clonidine HCl (Catapres) 0.1 mg PO Q4HR PRN PRN Reason: SBP ABOVE 160 Docusate Sodium (Colace) 250 mg PO DAILY PRN PRN Reason: Constipation Last Admin: 12/20/16 11:34 Dose: 250 mg Donepezil HCl (Aricept) 10 mg PO HS [facility] Stop: 02/21/17 20:59 Last Admin: 12/29/16 21:17 Dose: 10 mg Escitalopram Oxalate (Lexapro) 10 mg PO DAILY [facility] PRN Reason: Protocol Stop: 02/16/17 08:59 Last Admin: 12/30/16 09:55 Dose: 10 mg Folic Acid (Folate) 1 mg PO DAILY [facility] Stop: 02/15/17 08:59 Last Admin: 12/30/16 09:55 Dose: 1 mg Gabapentin (Neurontin) 300 mg PO DAILY [facility] Stop: 02/15/17 08:59 Last Admin: 12/30/16 09:55 Dose: 300 mg Hydrochlorothiazide (Hctz) 12.5 mg PO DAILY [facility] Stop: 02/15/17 08:59 Last Admin: 12/30/16 09:57 Dose: Not Given Lorazepam (Ativan) 0.5 mg PO Q4HR PRN; Protocol PRN Reason: anxiety Stop: 02/15/17 10:30 Losartan Potassium (Cozaar) 50 mg PO DAILY [facility] Stop: 02/15/17 08:59 Last Admin: 12/30/16 09:57 Dose: Not Given Magnesium Hydroxide (Milk Of Magnesia) 30 ml PO DAILY PRN PRN Reason: Constipation Stop: 02/18/17 15:25 Last Admin: 12/21/16 06:58 Dose: 30 ml Memantine (Namenda) 5 mg PO BID [facility] Stop: 02/27/17 16:59 Last Admin: 12/30/16 16:12 Dose: 5 mg Multivitamins/Vitamin C (Theragran) 1 tab PO DAILY [facility] Stop: 02/15/17 08:59 Last Admin: 12/30/16 09:55 Dose: 1 tab Ondansetron HCl (Zofran Odt) 4 mg PO Q6H PRN PRN Reason: Nausea / Vomiting Stop: 02/14/17 14:36 Pantoprazole Sodium (Protonix) 40 mg PO DAILY [facility] Stop: 02/15/17 08:59 Last Admin: 12/30/16 09:55 Dose: 40 mg Quetiapine Fumarate (Seroquel) 25 mg PO BID [facility] PRN Reason: Protocol Stop: 02/15/17 16:59 Last Admin: 12/30/16 16:12 Dose: 25 mg Zinc Sulfate (Zinc Sulfate) 220 mg PO DAILY [facility] Stop: 02/15/17 08:59 Last Admin: 12/30/16 09:55 Dose: 220 mg General: Alert, No acute distress, no Oriented x3 HEENT: Atraumatic, PERRLA, 6, EOMI, 7, Mucous membr. moist/pink, Other, 8, 9, 10 , 11, 12, 13, 14, 15, 16, 22, 17, 23, 18, 24, 19, 20, 21 Neck: Supple, JVD, Thyromegaly, +2 carotid pulse wo bruit, LAD, Other Cardiovascular: Regular rate, Normal S1, Normal S2 Lungs: Clear to auscultation, Normal air movement Abdomen: Bowel sounds, Soft Extremities: no Clubbing, no Cyanosis, no Edema, no Pulses, no Tender, no Other Neurological: Sensation intact, Cranial nerves 3-12 NL, no Normal gait, no Strength at 5/5 X4 ext Skin: no Rash, no Breakdown, no Significant lesion, no Other Psych/Mental Status: no Mental status NL, no Mood NL - Procedures Procedures: Procedures Procedure Code Date GROUP PSYCHOTHERAPY 60839 11/07/15 GROUP PSYCHOTHERAPY GZHZZZZ 11/07/15 Assessment/Plan - Problem List Patient Problems: All Active Problems Dementia (Acute) F03.90 COPD (chronic obstructive pulmonary disease) (Acute) Diabetes mellitus (Acute) E11.9 Hypertension (Acute) I10 Schizophrenia (Acute) F20.9 - Assessment Assessment: Dementia (Acute) F03.90 Schizophrenia (Acute) F20.9 COPD (chronic obstructive pulmonary disease) (Acute) Diabetes mellitus (Acute) E11.9 Hypertension (Acute) I10 Debility - Plan Plan: * Continue current medications * Obtain labs in am * Further per psychiatry Nutritional Asmnt/Malnutr-PDOC - Dietary Evaluation Malnutrition Findings (Please click <Entered> for more info): Nutritional Asmnt/Malnutrition Start: 12/18/16 16: 05 Text: Status: Complete Freq: Document 12/18/16 16:05 RODY (Rec: 12/18/16 16:10 RODY [email or web address]) Nutritional Asmnt/Malnutrition Patient General Information Nutritional Screening Moderate Risk Screening Diagnosis Reason for visit: psychosis Pertinent Medical Hx/Surgical Hx HTN, hyperlipidemia, dementia, TIA, constipation, psychosis, depression, schizophrenia, COPD, DM, debility Subjective Information 76 year old male. Pt transfered from [facility]. RD visited pt before at [facility] unit, pt was confused, talking to self, refusing meals. RD spoke to pt in bed eating during meal time today. Pt was pleasant, slightly confused, slightly slurred speech, however alert to answer simple questions. Most teeth intact, able to self feed, no difficulties noted. Pt denied nutritional concerns, deneid allergies, denied GI problems, requested for ice cream. Bedscale CBW 233lb. No severe wasting noted. Avg PO intake 100% of meals since adm, meeting nutritional needs. DM noted, no labs at this time, pt is not on insulin, glucose levels at [facility] 73: 83 7/4: 71 WNLs, will keep pt on low sodium diet and monitor is able, discussed with JOE Lamas . Current Diet Order/ Nutrition Support Low sodium Pertinent Medications Maalox, Vitamin C, Lipitor, Colace, Folate, Theragran, Zofran, Protonix, Seroquel, Zinc Sulfate Pertinent Labs No new labs. Nutritional Hx/Data Height 1.78 m Height (Calculated Centimeters) 177.8 Current Weight (lbs) 105.687 kg Weight (Calculated Kilograms) 105.7 Weight (Calculated Grams) 305782.0 [place] Body Weight 166 Weight Status Obese GI Symptoms Food Allergies No Skin Integrity/Comment: Mkihail 20. Skin intact. Current %PO Good (75-100%) Estimated Nutritional Goals Calories/Kcals/Kg IBW 166lb/75.5kg (questionable weights on EMR) Kcals Calculated 1888-2265kcal (25-30kcal/kg) Protein Calculated 76g (1g/kg) Fluid: ml 1888-2265ml (1ml/kcal) Nutritional Problem 1. Problem Problem No nutritional problem at this time. Intervention/Recommendation Comments 1. Continue with low sodium diet. Avg PO intake is adequate. 2. DM noted in H&P, no labs at this time, pt is not on insulin, glucose levels at [facility] 73: 83 7/4: 71 WNLs. Recommend monitor glucose levels. Recommend [id number] if needed. Expected Outcomes/Goals Expected Outcomes/Goals 1. PO intake to meet at least 75% of estimated nutritional needs.
--- NOTE | 2016-12-30 17:05 | General Progress Note ---
Subjective - Review of Systems Service Date: 12/30/16 Subjective: Patient is still agitated. Patient still in GeroPsych Unit. Objective - Results Result Diagrams: 12/26/16 08:10 12/26/16 08:10 Recent Labs: Laboratory Last Values WBC 6.8 Th/cmm (4.8-10.8) 12/26/16 08:10 RBC 4.99 Mil/cmm (3.80-5.80) 12/26/16 08:10 Hgb 14.5 gm/dL (12.6-17.4) 12/26/16 08:10 Hct 44.7 % (39.0-49.0) 12/26/16 08:10 MCV 89.6 fl (80-99) 12/26/16 08:10 MCH 29.1 pg (27.0-31.0) 12/26/16 08:10 MCHC Differential 32.5 pg (28.0-36.0) 12/26/16 08:10 RDW 17.1 % (11.5-20.0) 12/26/16 08:10 Plt Count 250 Th/cmm (150-400) 12/26/16 08:10 MPV 7.9 fl 12/26/16 08:10 Neutrophils % 55.0 % (40.0-80.0) 12/26/16 08:10 Band Neutrophils % 0 % (0-10) 12/19/16 06:38 Lymphocytes % 34.8 % (20.0-50.0) 12/26/16 08:10 Monocytes % 7.6 % (2.0-10.0) 12/26/16 08:10 Eosinophils % 2.5 % (0.0-5.0) 12/26/16 08:10 Basophils % 0.1 % (0.0-2.0) 12/26/16 08:10 Neutrophils (Manual) 52 % (40-80) 12/19/16 06:38 Lymphocytes 35 % (20-50) 12/19/16 06:38 Monocytes 13 % (2-10) H 12/19/16 06:38 Platelet Estimate ADEQUATE (NORMAL) 12/19/16 06:38 Sodium 135 mEq/L (136-145) L 12/26/16 08:10 Potassium 3.5 mEq/L (3.5-5.1) 12/26/16 08:10 Chloride 103 mEq/L (98-107) 12/26/16 08:10 Carbon Dioxide 28.1 mEq/L (21.0-31.0) 12/26/16 08:10 Anion Gap 7.4 (7.0-16.0) 12/26/16 08:10 BUN 19 mg/dL (7-25) 12/26/16 08:10 Creatinine 0.9 mg/dL (0.7-1.3) 12/26/16 08:10 Est GFR ( Amer) TNP 12/26/16 08:10 Est GFR (Non-Af Amer) TNP 12/26/16 08:10 BUN/Creatinine Ratio 21.1 12/26/16 08:10 Glucose 168 mg/dL (70-105) H 12/26/16 08:10 Calcium 9.2 mg/dL (8.6-10.3) 12/26/16 08:10 - Physical Exam Vitals and I&O: Vital Signs Temp 98.0 F 12/30/16 16:13 Pulse 78 12/30/16 16:13 Resp 20 12/30/16 16:13 BP 106/68 12/30/16 16:13 Pulse Ox 96 12/30/16 16:13 Intake & Output 12/29/16 12/30/16 12/30/16 18:59 06:59 18:59 Intake Total 1250 180 Balance 1250 180 Intake: Oral 1250 180 Other: # Voids 5 2 # Bowel Movements 2 0 Active Medications: Current Medications Acetaminophen (Tylenol) 650 mg PO Q4HR PRN PRN Reason: Mild Pain/Fever Stop: 02/14/17 13:42 Acetaminophen/Hydrocodone Bitart (Bath 5mg/325mg) 1 tab PO Q6H PRN PRN Reason: Pain (Moderate) Al Hydrox/Mg Hydrox/Simethicone (Maalox) 30 ml PO Q4HR PRN PRN Reason: GI DISTRESS Stop: 02/14/17 13:42 Albuterol Sulfate (Albuterol 2.5mg/3ml Neb Ud) 2.5 mg HHN Q6HR PRN PRN Reason: shortness of breath Stop: 02/14/17 13:42 Ascorbic Acid (Vitamin C) 500 mg PO DAILY [facility] Stop: 02/15/17 08:59 Last Admin: 12/30/16 09:55 Dose: 500 mg Atorvastatin Calcium (Lipitor) 10 mg PO DAILY [facility] PRN Reason: Protocol Stop: 02/15/17 08:59 Last Admin: 12/30/16 09:55 Dose: 10 mg Brimonidine Tartrate (Alphagan 0.15% Ophth Soln) 1 drop EACH EYE HS [facility] Stop: 02/14/17 20:59 Last Admin: 12/29/16 21:21 Dose: 1 drop Carvedilol (Coreg) 3.125 mg PO BID [facility] Stop: 02/14/17 16:59 Last Admin: 12/30/16 16:12 Dose: Not Given Clonidine HCl (Catapres) 0.1 mg PO Q4HR PRN PRN Reason: SBP ABOVE 160 Docusate Sodium (Colace) 250 mg PO DAILY PRN PRN Reason: Constipation Last Admin: 12/20/16 11:34 Dose: 250 mg Donepezil HCl (Aricept) 10 mg PO HS [facility] Stop: 02/21/17 20:59 Last Admin: 12/29/16 21:17 Dose: 10 mg Escitalopram Oxalate (Lexapro) 10 mg PO DAILY [facility] PRN Reason: Protocol Stop: 02/16/17 08:59 Last Admin: 12/30/16 09:55 Dose: 10 mg Folic Acid (Folate) 1 mg PO DAILY [facility] Stop: 02/15/17 08:59 Last Admin: 12/30/16 09:55 Dose: 1 mg Gabapentin (Neurontin) 300 mg PO DAILY [facility] Stop: 02/15/17 08:59 Last Admin: 12/30/16 09:55 Dose: 300 mg Hydrochlorothiazide (Hctz) 12.5 mg PO DAILY [facility] Stop: 02/15/17 08:59 Last Admin: 12/30/16 09:57 Dose: Not Given Lorazepam (Ativan) 0.5 mg PO Q4HR PRN; Protocol PRN Reason: anxiety Stop: 02/15/17 10:30 Losartan Potassium (Cozaar) 50 mg PO DAILY [facility] Stop: 02/15/17 08:59 Last Admin: 12/30/16 09:57 Dose: Not Given Magnesium Hydroxide (Milk Of Magnesia) 30 ml PO DAILY PRN PRN Reason: Constipation Stop: 02/18/17 15:25 Last Admin: 12/21/16 06:58 Dose: 30 ml Memantine (Namenda) 5 mg PO BID [facility] Stop: 02/27/17 16:59 Last Admin: 12/30/16 16:12 Dose: 5 mg Multivitamins/Vitamin C (Theragran) 1 tab PO DAILY [facility] Stop: 02/15/17 08:59 Last Admin: 12/30/16 09:55 Dose: 1 tab Ondansetron HCl (Zofran Odt) 4 mg PO Q6H PRN PRN Reason: Nausea / Vomiting Stop: 02/14/17 14:36 Pantoprazole Sodium (Protonix) 40 mg PO DAILY [facility] Stop: 02/15/17 08:59 Last Admin: 12/30/16 09:55 Dose: 40 mg Quetiapine Fumarate (Seroquel) 25 mg PO BID [facility] PRN Reason: Protocol Stop: 02/15/17 16:59 Last Admin: 12/30/16 16:12 Dose: 25 mg Zinc Sulfate (Zinc Sulfate) 220 mg PO DAILY [facility] Stop: 02/15/17 08:59 Last Admin: 12/30/16 09:55 Dose: 220 mg General: Alert, No acute distress, no Oriented x3 HEENT: Atraumatic, PERRLA, 6, EOMI, 7, Mucous membr. moist/pink, Other, 8, 9, 10 , 11, 12, 13, 14, 15, 16, 22, 17, 23, 18, 24, 19, 20, 21 Neck: Supple, JVD, Thyromegaly, +2 carotid pulse wo bruit, LAD, Other Cardiovascular: Regular rate, Normal S1, Normal S2 Lungs: Clear to auscultation, Normal air movement Abdomen: Bowel sounds, Soft Extremities: no Clubbing, no Cyanosis, no Edema, no Pulses, no Tender, no Other Neurological: Sensation intact, Cranial nerves 3-12 NL, no Normal gait, no Strength at 5/5 X4 ext Skin: no Rash, no Breakdown, no Significant lesion, no Other Psych/Mental Status: no Mental status NL, no Mood NL - Procedures Procedures: Procedures Procedure Code Date GROUP PSYCHOTHERAPY 04092 11/07/15 GROUP PSYCHOTHERAPY GZHZZZZ 11/07/15 Assessment/Plan - Problem List Patient Problems: All Active Problems Dementia (Acute) F03.90 COPD (chronic obstructive pulmonary disease) (Acute) Diabetes mellitus (Acute) E11.9 Hypertension (Acute) I10 Schizophrenia (Acute) F20.9 - Assessment Assessment: Dementia (Acute) F03.90 Schizophrenia (Acute) F20.9 COPD (chronic obstructive pulmonary disease) (Acute) Diabetes mellitus (Acute) E11.9 Hypertension (Acute) I10 Debility - Plan Plan: * Continue current medications * Obtain labs in am * Further per psychiatry Nutritional Asmnt/Malnutr-PDOC - Dietary Evaluation Malnutrition Findings (Please click <Entered> for more info): Nutritional Asmnt/Malnutrition Start: 12/18/16 16: 05 Text: Status: Complete Freq: Document 12/18/16 16:05 RODY (Rec: 12/18/16 16:10 [email or web address]) Nutritional Asmnt/Malnutrition Patient General Information Nutritional Screening Moderate Risk Screening Diagnosis Reason for visit: psychosis Pertinent Medical Hx/Surgical Hx HTN, hyperlipidemia, dementia, TIA, constipation, psychosis, depression, schizophrenia, COPD, DM, debility Subjective Information 76 year old male. Pt transfered from [facility]. RD visited pt before at [facility] unit, pt was confused, talking to self, refusing meals. RD spoke to pt in bed eating during meal time today. Pt was pleasant, slightly confused, slightly slurred speech, however alert to answer simple questions. Most teeth intact, able to self feed, no difficulties noted. Pt denied nutritional concerns, deneid allergies, denied GI problems, requested for ice cream. Bedscale CBW 233lb. No severe wasting noted. Avg PO intake 100% of meals since adm, meeting nutritional needs. DM noted, no labs at this time, pt is not on insulin, glucose levels at [facility] 73: 83 7/4: 71 WNLs, will keep pt on low sodium diet and monitor is able, discussed with JOE Lamas . Current Diet Order/ Nutrition Support Low sodium Pertinent Medications Maalox, Vitamin C, Lipitor, Colace, Folate, Theragran, Zofran, Protonix, Seroquel, Zinc Sulfate Pertinent Labs No new labs. Nutritional Hx/Data Height 1.78 m Height (Calculated Centimeters) 177.8 Current Weight (lbs) 105.687 kg Weight (Calculated Kilograms) 105.7 Weight (Calculated Grams) 086345.0 Lando Body Weight 166 Weight Status Obese GI Symptoms Food Allergies No Skin Integrity/Comment: Mikhail 20. Skin intact. Current %PO Good (75-100%) Estimated Nutritional Goals Calories/Kcals/Kg IBW 166lb/75.5kg (questionable weights on EMR) Kcals Calculated 1888-2265kcal (25-30kcal/kg) Protein Calculated 76g (1g/kg) Fluid: ml 1888-2265ml (1ml/kcal) Nutritional Problem 1. Problem Problem No nutritional problem at this time. Intervention/Recommendation Comments 1. Continue with low sodium diet. Avg PO intake is adequate. 2. DM noted in H&P, no labs at this time, pt is not on insulin, glucose levels at [facility] 73: 83 7/4: 71 WNLs. Recommend monitor glucose levels. Recommend [id number] if needed. Expected Outcomes/Goals Expected Outcomes/Goals 1. PO intake to meet at least 75% of estimated nutritional needs.
[2016-12-31] MEDS: Pantoprazole 40 mg EC Tab PO SCH (08:04)
[2016-12-31] MEDS: Multivitamin Tab PO SCH (08:04)
[2016-12-31] MEDS: Atorvastatin Calcium 10 MG TAB PO SCH (08:04)
[2016-12-31] MEDS: Venelex 60gm Tube TP SCH (08:14)
[2016-12-31 08:45] LABS: % BASOPHILS 0.2 % (0.0-2.0); % EOSINOPHILS 2.8 % (0.0-5.0); % LYMPHOCYTES 36.5 % (20.0-50.0); % MONOCYTES 7.8 % (2.0-10.0); % NEUTROPHILS 52.7 % (40.0-80.0); HEMATOCRIT 44.7 % (39.0-49.0); HEMOGLOBIN 14.7 gm/dL (12.6-17.4); MEAN CELL VOLUME 89.5 fl (80-99); MEAN CORPUSCULAR HEMOGLOBIN 29.4 pg (27.0-31.0); MEAN CORPUSCULAR HGB CONC 32.8 pg (28.0-36.0); MEAN PLATELET VOLUME 6.9 fl; NEUTROPHILE ABSOLUTE 3.3 Th/cmm (1.8-8.0); PLATELET COUNT 289 Th/cmm (150-400); RED BLOOD COUNT 4.99 Mil/cmm (3.80-5.80); RED CELL DISTRIBUTION WIDTH 16.5 % (11.5-20.0); WHITE BLOOD COUNT 6.3 Th/cmm (4.8-10.8)
[2016-12-31 09:04] LABS: ANION GAP 4.3 (7.0-16.0); BUN - UREA NITROGEN 17 mg/dL (7-25); BUN/CREATININE RATIO 21.3; CARBON DIOXIDE 29.7 mEq/L (21.0-31.0); CHLORIDE 105 mEq/L (98-107); CREATININE - SERUM 0.8 mg/dL (0.7-1.3); GLUCOSE 135 mg/dL (70-105); SODIUM SERUM 135 mEq/L (136-145)
[2017-01-01] MEDS: Atorvastatin Calcium 10 MG TAB PO SCH (08:58)
[2017-01-01] MEDS: Pantoprazole 40 mg EC Tab PO SCH (08:58)
[2017-01-01] MEDS: Multivitamin Tab PO SCH (08:59)
[2017-01-01] MEDS: Venelex 60gm Tube TP SCH (09:00)
--- NOTE | 2017-01-01 19:30 | Progress Notes ---
DATE: 01/01/2017 Case was discussed with staff of the patient, reviewed records. The patient is currently working on placement to be feasible at [facility], so we are trying to send him to [facility]. He reports he was there before and does not like it. However, he was also rejected by them. He has been compliant with the medication with no side effects, no sedation, no nausea, no extrapyramidal symptoms. He is showing some progress and seems to be improving and he is tolerating the increase in Namenda with Aricept 10 mg at bedtime, Lexapro 10 mg daily and Seroquel 25 mg twice a day. No sedation, no nausea, no extrapyramidal symptoms. We will continue to work with the patient in group therapy, milieu therapy, adjust the medication as needed. JOB# [id number]
[2017-01-02] MEDS: Atorvastatin Calcium 10 MG TAB PO SCH (08:28)
[2017-01-02] MEDS: Multivitamin Tab PO SCH (08:29)
[2017-01-02] MEDS: Pantoprazole 40 mg EC Tab PO SCH (08:29)
[2017-01-02] MEDS: Venelex 60gm Tube TP SCH (08:30)
--- NOTE | 2017-01-02 09:52 | General Progress Note ---
Subjective - Review of Systems Service Date: 12/31/16 Subjective: Patient is still agitated. Patient still in GeroPsych Unit. Objective - Results Result Diagrams: 12/31/16 08:20 12/31/16 08:20 Recent Labs: Laboratory Last Values WBC 6.3 Th/cmm (4.8-10.8) 12/31/16 08:20 RBC 4.99 Mil/cmm (3.80-5.80) 12/31/16 08:20 Hgb 14.7 gm/dL (12.6-17.4) 12/31/16 08:20 Hct 44.7 % (39.0-49.0) 12/31/16 08:20 MCV 89.5 fl (80-99) 12/31/16 08:20 MCH 29.4 pg (27.0-31.0) 12/31/16 08:20 MCHC Differential 32.8 pg (28.0-36.0) 12/31/16 08:20 RDW 16.5 % (11.5-20.0) 12/31/16 08:20 Plt Count 289 Th/cmm (150-400) 12/31/16 08:20 MPV 6.9 fl 12/31/16 08:20 Neutrophils % 52.7 % (40.0-80.0) 12/31/16 08:20 Band Neutrophils % 0 % (0-10) 12/19/16 06:38 Lymphocytes % 36.5 % (20.0-50.0) 12/31/16 08:20 Monocytes % 7.8 % (2.0-10.0) 12/31/16 08:20 Eosinophils % 2.8 % (0.0-5.0) 12/31/16 08:20 Basophils % 0.2 % (0.0-2.0) 12/31/16 08:20 Neutrophils (Manual) 52 % (40-80) 12/19/16 06:38 Lymphocytes 35 % (20-50) 12/19/16 06:38 Monocytes 13 % (2-10) H 12/19/16 06:38 Platelet Estimate ADEQUATE (NORMAL) 12/19/16 06:38 Sodium 135 mEq/L (136-145) L 12/31/16 08:20 Potassium 4.0 mEq/L (3.5-5.1) 12/31/16 08:20 Chloride 105 mEq/L (98-107) 12/31/16 08:20 Carbon Dioxide 29.7 mEq/L (21.0-31.0) 12/31/16 08:20 Anion Gap 4.3 (7.0-16.0) L 12/31/16 08:20 BUN 17 mg/dL (7-25) 12/31/16 08:20 Creatinine 0.8 mg/dL (0.7-1.3) 12/31/16 08:20 Est GFR ( Amer) TNP 12/31/16 08:20 Est GFR (Non-Af Amer) TNP 12/31/16 08:20 BUN/Creatinine Ratio 21.3 12/31/16 08:20 Glucose 135 mg/dL (70-105) H 12/31/16 08:20 Calcium 9.0 mg/dL (8.6-10.3) 12/31/16 08:20 - Physical Exam Vitals and I&O: Vital Signs Temp 98.2 F 01/02/17 06:25 Pulse 64 01/02/17 08:31 Resp 20 01/02/17 06:25 BP 109/57 01/02/17 08:31 Pulse Ox 97 01/02/17 06:25 Intake & Output 01/01/17 01/02/17 01/02/17 18:59 06:59 18:59 Intake Total 900 120 Balance 900 120 Intake: Oral 900 120 Other: # Voids 3 3 # Bowel Movements 0 Active Medications: Current Medications Acetaminophen (Tylenol) 650 mg PO Q4HR PRN PRN Reason: Mild Pain/Fever Stop: 02/14/17 13:42 Al Hydrox/Mg Hydrox/Simethicone (Maalox) 30 ml PO Q4HR PRN PRN Reason: GI DISTRESS Stop: 02/14/17 13:42 Albuterol Sulfate (Albuterol 2.5mg/3ml Neb Ud) 2.5 mg HHN Q6HR PRN PRN Reason: shortness of breath Stop: 02/14/17 13:42 Ascorbic Acid (Vitamin C) 500 mg PO DAILY [facility] Stop: 02/15/17 08:59 Last Admin: 01/02/17 08:29 Dose: 500 mg Atorvastatin Calcium (Lipitor) 10 mg PO DAILY [facility] PRN Reason: Protocol Stop: 02/15/17 08:59 Last Admin: 01/02/17 08:28 Dose: 10 mg Brimonidine Tartrate (Alphagan 0.15% Oph Soln) 1 drop EACH EYE HS [facility] Stop: 02/14/17 20:59 Last Admin: 01/01/17 21:08 Dose: 1 drop Carvedilol (Coreg) 3.125 mg PO BID [facility] Stop: 02/14/17 16:59 Last Admin: 01/02/17 08:30 Dose: 3.125 mg Clonidine HCl (Catapres) 0.1 mg PO Q4HR PRN PRN Reason: SBP ABOVE 160 Docusate Sodium (Colace) 250 mg PO DAILY PRN PRN Reason: Constipation Last Admin: 12/20/16 11:34 Dose: 250 mg Donepezil HCl (Aricept) 10 mg PO HS [facility] Stop: 02/21/17 20:59 Last Admin: 01/01/17 21:08 Dose: 10 mg Escitalopram Oxalate (Lexapro) 10 mg PO DAILY [facility] PRN Reason: Protocol Stop: 02/16/17 08:59 Last Admin: 01/02/17 08:30 Dose: 10 mg Folic Acid (Folate) 1 mg PO DAILY [facility] Stop: 02/15/17 08:59 Last Admin: 01/02/17 08:29 Dose: 1 mg Gabapentin (Neurontin) 300 mg PO DAILY [facility] Stop: 02/15/17 08:59 Last Admin: 01/02/17 08:29 Dose: 300 mg Hydrochlorothiazide (Hctz) 12.5 mg PO DAILY [facility] Stop: 02/15/17 08:59 Last Admin: 01/02/17 08:29 Dose: 12.5 mg Losartan Potassium (Cozaar) 50 mg PO DAILY [facility] Stop: 02/15/17 08:59 Last Admin: 01/02/17 08:31 Dose: Not Given Magnesium Hydroxide (Milk Of Magnesia) 30 ml PO DAILY PRN PRN Reason: Constipation Stop: 02/18/17 15:25 Last Admin: 12/21/16 06:58 Dose: 30 ml Memantine (Namenda) 5 mg PO BID [facility] Stop: 02/27/17 16:59 Last Admin: 01/02/17 08:29 Dose: 5 mg Multivitamins/Vitamin C (Theragran) 1 tab PO DAILY [facility] Stop: 02/15/17 08:59 Last Admin: 01/02/17 08:29 Dose: 1 tab Ondansetron HCl (Zofran Odt) 4 mg PO Q6H PRN PRN Reason: Nausea / Vomiting Stop: 02/14/17 14:36 Pantoprazole Sodium (Protonix) 40 mg PO DAILY [facility] Stop: 02/15/17 08:59 Last Admin: 01/02/17 08:29 Dose: 40 mg Quetiapine Fumarate (Seroquel) 25 mg PO BID [facility] PRN Reason: Protocol Stop: 02/15/17 16:59 Last Admin: 01/02/17 08:28 Dose: 25 mg Zinc Sulfate (Zinc Sulfate) 220 mg PO DAILY [facility] Stop: 02/15/17 08:59 Last Admin: 01/02/17 08:29 Dose: 220 mg General: Alert, No acute distress, no Oriented x3 HEENT: Atraumatic, PERRLA, 6, EOMI, 7, Mucous membr. moist/pink, Other, 8, 9, 10 , 11, 12, 13, 14, 15, 16, 22, 17, 23, 18, 24, 19, 20, 21 Neck: Supple, JVD, Thyromegaly, +2 carotid pulse wo bruit, LAD, Other Cardiovascular: Regular rate, Normal S1, Normal S2 Lungs: Clear to auscultation, Normal air movement Abdomen: Bowel sounds, Soft Extremities: no Clubbing, no Cyanosis, no Edema, no Pulses, no Tender, no Other Neurological: Sensation intact, Cranial nerves 3-12 NL, no Normal gait, no Strength at 5/5 X4 ext Skin: no Rash, no Breakdown, no Significant lesion, no Other Psych/Mental Status: no Mental status NL, no Mood NL - Procedures Procedures: Procedures Procedure Code Date GROUP PSYCHOTHERAPY 74446 11/07/15 GROUP PSYCHOTHERAPY GZHZZZZ 11/07/15 Assessment/Plan - Problem List Patient Problems: All Active Problems Dementia (Acute) F03.90 COPD (chronic obstructive pulmonary disease) (Acute) Diabetes mellitus (Acute) E11.9 Hypertension (Acute) I10 Schizophrenia (Acute) F20.9 - Assessment Assessment: Dementia (Acute) F03.90 Schizophrenia (Acute) F20.9 COPD (chronic obstructive pulmonary disease) (Acute) Diabetes mellitus (Acute) E11.9 Hypertension (Acute) I10 Debility - Plan Plan: * Continue current medications * Obtain labs in am * Further per psychiatry Nutritional Asmnt/Malnutr-PDOC - Dietary Evaluation Malnutrition Findings (Please click <Entered> for more info): Nutritional Asmnt/Malnutrition Start: 12/18/16 16: 05 Text: Status: Complete Freq: Document 12/18/16 16:05 RODY (Rec: 12/18/16 16:10 [email or web address]) Nutritional Asmnt/Malnutrition Patient General Information Nutritional Screening Moderate Risk Screening Diagnosis Reason for visit: psychosis Pertinent Medical Hx/Surgical Hx HTN, hyperlipidemia, dementia, TIA, constipation, psychosis, depression, schizophrenia, COPD, DM, debility Subjective Information 76 year old male. Pt transfered from [facility]. RD visited pt before at [facility] unit, pt was confused, talking to self, refusing meals. RD spoke to pt in bed eating during meal time today. Pt was pleasant, slightly confused, slightly slurred speech, however alert to answer simple questions. Most teeth intact, able to self feed, no difficulties noted. Pt denied nutritional concerns, deneid allergies, denied GI problems, requested for ice cream. Bedscale CBW 233lb. No severe wasting noted. Avg PO intake 100% of meals since adm, meeting nutritional needs. DM noted, no labs at this time, pt is not on insulin, glucose levels at [facility] 7/3: 83 7/4: 71 WNLs, will keep pt on low sodium diet and monitor is able, discussed with JOE Lamas . Current Diet Order/ Nutrition Support Low sodium Pertinent Medications Maalox, Vitamin C, Lipitor, Colace, Folate, Theragran, Zofran, Protonix, Seroquel, Zinc Sulfate Pertinent Labs No new labs. Nutritional Hx/Data Height 1.78 m Height (Calculated Centimeters) 177.8 Current Weight (lbs) 105.687 kg Weight (Calculated Kilograms) 105.7 Weight (Calculated Grams) 036301.0 Mccarley Body Weight 166 Weight Status Obese GI Symptoms Food Allergies No Skin Integrity/Comment: Mikhail 20. Skin intact. Current %PO Good (75-100%) Estimated Nutritional Goals Calories/Kcals/Kg IBW 166lb/75.5kg (questionable weights on EMR) Kcals Calculated 1888-2265kcal (25-30kcal/kg) Protein Calculated 76g (1g/kg) Fluid: ml 1888-2265ml (1ml/kcal) Nutritional Problem 1. Problem Problem No nutritional problem at this time. Intervention/Recommendation Comments 1. Continue with low sodium diet. Avg PO intake is adequate. 2. DM noted in H&P, no labs at this time, pt is not on insulin, glucose levels at [facility] 73: 83 7/4: 71 WNLs. Recommend monitor glucose levels. Recommend [id number] if needed. Expected Outcomes/Goals Expected Outcomes/Goals 1. PO intake to meet at least 75% of estimated nutritional needs.
--- NOTE | 2017-01-02 09:53 | General Progress Note ---
Subjective - Review of Systems Service Date: 01/01/17 Subjective: Patient is still agitated. Patient still in GeroPsych Unit. Objective - Results Result Diagrams: 12/31/16 08:20 12/31/16 08:20 Recent Labs: Laboratory Last Values WBC 6.3 Th/cmm (4.8-10.8) 12/31/16 08:20 RBC 4.99 Mil/cmm (3.80-5.80) 12/31/16 08:20 Hgb 14.7 gm/dL (12.6-17.4) 12/31/16 08:20 Hct 44.7 % (39.0-49.0) 12/31/16 08:20 MCV 89.5 fl (80-99) 12/31/16 08:20 MCH 29.4 pg (27.0-31.0) 12/31/16 08:20 MCHC Differential 32.8 pg (28.0-36.0) 12/31/16 08:20 RDW 16.5 % (11.5-20.0) 12/31/16 08:20 Plt Count 289 Th/cmm (150-400) 12/31/16 08:20 MPV 6.9 fl 12/31/16 08:20 Neutrophils % 52.7 % (40.0-80.0) 12/31/16 08:20 Band Neutrophils % 0 % (0-10) 12/19/16 06:38 Lymphocytes % 36.5 % (20.0-50.0) 12/31/16 08:20 Monocytes % 7.8 % (2.0-10.0) 12/31/16 08:20 Eosinophils % 2.8 % (0.0-5.0) 12/31/16 08:20 Basophils % 0.2 % (0.0-2.0) 12/31/16 08:20 Neutrophils (Manual) 52 % (40-80) 12/19/16 06:38 Lymphocytes 35 % (20-50) 12/19/16 06:38 Monocytes 13 % (2-10) H 12/19/16 06:38 Platelet Estimate ADEQUATE (NORMAL) 12/19/16 06:38 Sodium 135 mEq/L (136-145) L 12/31/16 08:20 Potassium 4.0 mEq/L (3.5-5.1) 12/31/16 08:20 Chloride 105 mEq/L (98-107) 12/31/16 08:20 Carbon Dioxide 29.7 mEq/L (21.0-31.0) 12/31/16 08:20 Anion Gap 4.3 (7.0-16.0) L 12/31/16 08:20 BUN 17 mg/dL (7-25) 12/31/16 08:20 Creatinine 0.8 mg/dL (0.7-1.3) 12/31/16 08:20 Est GFR ( Amer) TNP 12/31/16 08:20 Est GFR (Non-Af Amer) TNP 12/31/16 08:20 BUN/Creatinine Ratio 21.3 12/31/16 08:20 Glucose 135 mg/dL (70-105) H 12/31/16 08:20 Calcium 9.0 mg/dL (8.6-10.3) 12/31/16 08:20 - Physical Exam Vitals and I&O: Vital Signs Temp 98.2 F 01/02/17 06:25 Pulse 64 01/02/17 08:31 Resp 20 01/02/17 06:25 BP 109/57 01/02/17 08:31 Pulse Ox 97 01/02/17 06:25 Intake & Output 01/01/17 01/02/17 01/02/17 18:59 06:59 18:59 Intake Total 900 120 Balance 900 120 Intake: Oral 900 120 Other: # Voids 3 3 # Bowel Movements 0 Active Medications: Current Medications Acetaminophen (Tylenol) 650 mg PO Q4HR PRN PRN Reason: Mild Pain/Fever Stop: 02/14/17 13:42 Al Hydrox/Mg Hydrox/Simethicone (Maalox) 30 ml PO Q4HR PRN PRN Reason: GI DISTRESS Stop: 02/14/17 13:42 Albuterol Sulfate (Albuterol 2.5mg/3ml Neb Ud) 2.5 mg HHN Q6HR PRN PRN Reason: shortness of breath Stop: 02/14/17 13:42 Ascorbic Acid (Vitamin C) 500 mg PO DAILY [facility]ON Stop: 02/15/17 08:59 Last Admin: 01/02/17 08:29 Dose: 500 mg Atorvastatin Calcium (Lipitor) 10 mg PO DAILY [facility] PRN Reason: Protocol Stop: 02/15/17 08:59 Last Admin: 01/02/17 08:28 Dose: 10 mg Brimonidine Tartrate (Alphagan 0.15% Oph Soln) 1 drop EACH EYE HS [facility] Stop: 02/14/17 20:59 Last Admin: 01/01/17 21:08 Dose: 1 drop Carvedilol (Coreg) 3.125 mg PO BID [facility] Stop: 02/14/17 16:59 Last Admin: 01/02/17 08:30 Dose: 3.125 mg Clonidine HCl (Catapres) 0.1 mg PO Q4HR PRN PRN Reason: SBP ABOVE 160 Docusate Sodium (Colace) 250 mg PO DAILY PRN PRN Reason: Constipation Last Admin: 12/20/16 11:34 Dose: 250 mg Donepezil HCl (Aricept) 10 mg PO HS [facility] Stop: 02/21/17 20:59 Last Admin: 01/01/17 21:08 Dose: 10 mg Escitalopram Oxalate (Lexapro) 10 mg PO DAILY [facility] PRN Reason: Protocol Stop: 02/16/17 08:59 Last Admin: 01/02/17 08:30 Dose: 10 mg Folic Acid (Folate) 1 mg PO DAILY [facility] Stop: 02/15/17 08:59 Last Admin: 01/02/17 08:29 Dose: 1 mg Gabapentin (Neurontin) 300 mg PO DAILY [facility] Stop: 02/15/17 08:59 Last Admin: 01/02/17 08:29 Dose: 300 mg Hydrochlorothiazide (Hctz) 12.5 mg PO DAILY [facility] Stop: 02/15/17 08:59 Last Admin: 01/02/17 08:29 Dose: 12.5 mg Losartan Potassium (Cozaar) 50 mg PO DAILY [facility] Stop: 02/15/17 08:59 Last Admin: 01/02/17 08:31 Dose: Not Given Magnesium Hydroxide (Milk Of Magnesia) 30 ml PO DAILY PRN PRN Reason: Constipation Stop: 02/18/17 15:25 Last Admin: 12/21/16 06:58 Dose: 30 ml Memantine (Namenda) 5 mg PO BID [facility] Stop: 02/27/17 16:59 Last Admin: 01/02/17 08:29 Dose: 5 mg Multivitamins/Vitamin C (Theragran) 1 tab PO DAILY [facility] Stop: 02/15/17 08:59 Last Admin: 01/02/17 08:29 Dose: 1 tab Ondansetron HCl (Zofran Odt) 4 mg PO Q6H PRN PRN Reason: Nausea / Vomiting Stop: 02/14/17 14:36 Pantoprazole Sodium (Protonix) 40 mg PO DAILY [facility] Stop: 02/15/17 08:59 Last Admin: 01/02/17 08:29 Dose: 40 mg Quetiapine Fumarate (Seroquel) 25 mg PO BID [facility] PRN Reason: Protocol Stop: 02/15/17 16:59 Last Admin: 01/02/17 08:28 Dose: 25 mg Zinc Sulfate (Zinc Sulfate) 220 mg PO DAILY [facility] Stop: 02/15/17 08:59 Last Admin: 01/02/17 08:29 Dose: 220 mg General: Alert, No acute distress, no Oriented x3 HEENT: Atraumatic, PERRLA, 6, EOMI, 7, Mucous membr. moist/pink, Other, 8, 9, 10 , 11, 12, 13, 14, 15, 16, 22, 17, 23, 18, 24, 19, 20, 21 Neck: Supple, JVD, Thyromegaly, +2 carotid pulse wo bruit, LAD, Other Cardiovascular: Regular rate, Normal S1, Normal S2 Lungs: Clear to auscultation, Normal air movement Abdomen: Bowel sounds, Soft Extremities: no Clubbing, no Cyanosis, no Edema, no Pulses, no Tender, no Other Neurological: Sensation intact, Cranial nerves 3-12 NL, no Normal gait, no Strength at 5/5 X4 ext Skin: no Rash, no Breakdown, no Significant lesion, no Other Psych/Mental Status: no Mental status NL, no Mood NL - Procedures Procedures: Procedures Procedure Code Date GROUP PSYCHOTHERAPY 34568 11/07/15 GROUP PSYCHOTHERAPY GZHZZZZ 11/07/15 Assessment/Plan - Problem List Patient Problems: All Active Problems Dementia (Acute) F03.90 COPD (chronic obstructive pulmonary disease) (Acute) Diabetes mellitus (Acute) E11.9 Hypertension (Acute) I10 Schizophrenia (Acute) F20.9 - Assessment Assessment: Dementia (Acute) F03.90 Schizophrenia (Acute) F20.9 COPD (chronic obstructive pulmonary disease) (Acute) Diabetes mellitus (Acute) E11.9 Hypertension (Acute) I10 Debility - Plan Plan: * Continue current medications * Obtain labs in am * Further per psychiatry Nutritional Asmnt/Malnutr-PDOC - Dietary Evaluation Malnutrition Findings (Please click <Entered> for more info): Nutritional Asmnt/Malnutrition Start: 12/18/16 16: 05 Text: Status: Complete Freq: Document 12/18/16 16:05 RODY (Rec: 12/18/16 16:10 [email or web address] [id number]) Nutritional Asmnt/Malnutrition Patient General Information Nutritional Screening Moderate Risk Screening Diagnosis Reason for visit: psychosis Pertinent Medical Hx/Surgical Hx HTN, hyperlipidemia, dementia, TIA, constipation, psychosis, depression, schizophrenia, COPD, DM, debility Subjective Information 76 year old male. Pt transfered from [facility]. RD visited pt before at [facility] unit, pt was confused, talking to self, refusing meals. RD spoke to pt in bed eating during meal time today. Pt was pleasant, slightly confused, slightly slurred speech, however alert to answer simple questions. Most teeth intact, able to self feed, no difficulties noted. Pt denied nutritional concerns, deneid allergies, denied GI problems, requested for ice cream. Bedscale CBW 233lb. No severe wasting noted. Avg PO intake 100% of meals since adm, meeting nutritional needs. DM noted, no labs at this time, pt is not on insulin, glucose levels at [facility] 7/3: 83 7/4: 71 WNLs, will keep pt on low sodium diet and monitor is able, discussed with JOE Lamas . Current Diet Order/ Nutrition Support Low sodium Pertinent Medications Maalox, Vitamin C, Lipitor, Colace, Folate, Theragran, Zofran, Protonix, Seroquel, Zinc Sulfate Pertinent Labs No new labs. Nutritional Hx/Data Height 1.78 m Height (Calculated Centimeters) 177.8 Current Weight (lbs) 105.687 kg Weight (Calculated Kilograms) 105.7 Weight (Calculated Grams) 463851.0 [place] Body Weight 166 Weight Status Obese GI Symptoms Food Allergies No Skin Integrity/Comment: Mikhail 20. Skin intact. Current %PO Good (75-100%) Estimated Nutritional Goals Calories/Kcals/Kg IBW 166lb/75.5kg (questionable weights on EMR) Kcals Calculated 1888-2265kcal (25-30kcal/kg) Protein Calculated 76g (1g/kg) Fluid: ml 1888-2265ml (1ml/kcal) Nutritional Problem 1. Problem Problem No nutritional problem at this time. Intervention/Recommendation Comments 1. Continue with low sodium diet. Avg PO intake is adequate. 2. DM noted in H&P, no labs at this time, pt is not on insulin, glucose levels at [facility] 73: 83 7/4: 71 WNLs. Recommend monitor glucose levels. Recommend [id number] if needed. Expected Outcomes/Goals Expected Outcomes/Goals 1. PO intake to meet at least 75% of estimated nutritional needs.
--- NOTE | 2017-01-02 09:53 | General Progress Note ---
Subjective - Review of Systems Service Date: 01/02/17 Subjective: Patient is still agitated. Patient still in GeroPsych Unit. Objective - Results Result Diagrams: 12/31/16 08:20 12/31/16 08:20 Recent Labs: Laboratory Last Values WBC 6.3 Th/cmm (4.8-10.8) 12/31/16 08:20 RBC 4.99 Mil/cmm (3.80-5.80) 12/31/16 08:20 Hgb 14.7 gm/dL (12.6-17.4) 12/31/16 08:20 Hct 44.7 % (39.0-49.0) 12/31/16 08:20 MCV 89.5 fl (80-99) 12/31/16 08:20 MCH 29.4 pg (27.0-31.0) 12/31/16 08:20 MCHC Differential 32.8 pg (28.0-36.0) 12/31/16 08:20 RDW 16.5 % (11.5-20.0) 12/31/16 08:20 Plt Count 289 Th/cmm (150-400) 12/31/16 08:20 MPV 6.9 fl 12/31/16 08:20 Neutrophils % 52.7 % (40.0-80.0) 12/31/16 08:20 Band Neutrophils % 0 % (0-10) 12/19/16 06:38 Lymphocytes % 36.5 % (20.0-50.0) 12/31/16 08:20 Monocytes % 7.8 % (2.0-10.0) 12/31/16 08:20 Eosinophils % 2.8 % (0.0-5.0) 12/31/16 08:20 Basophils % 0.2 % (0.0-2.0) 12/31/16 08:20 Neutrophils (Manual) 52 % (40-80) 12/19/16 06:38 Lymphocytes 35 % (20-50) 12/19/16 06:38 Monocytes 13 % (2-10) H 12/19/16 06:38 Platelet Estimate ADEQUATE (NORMAL) 12/19/16 06:38 Sodium 135 mEq/L (136-145) L 12/31/16 08:20 Potassium 4.0 mEq/L (3.5-5.1) 12/31/16 08:20 Chloride 105 mEq/L (98-107) 12/31/16 08:20 Carbon Dioxide 29.7 mEq/L (21.0-31.0) 12/31/16 08:20 Anion Gap 4.3 (7.0-16.0) L 12/31/16 08:20 BUN 17 mg/dL (7-25) 12/31/16 08:20 Creatinine 0.8 mg/dL (0.7-1.3) 12/31/16 08:20 Est GFR ( Amer) TNP 12/31/16 08:20 Est GFR (Non-Af Amer) TNP 12/31/16 08:20 BUN/Creatinine Ratio 21.3 12/31/16 08:20 Glucose 135 mg/dL (70-105) H 12/31/16 08:20 Calcium 9.0 mg/dL (8.6-10.3) 12/31/16 08:20 - Physical Exam Vitals and I&O: Vital Signs Temp 98.2 F 01/02/17 06:25 Pulse 64 01/02/17 08:31 Resp 20 01/02/17 06:25 BP 109/57 01/02/17 08:31 Pulse Ox 97 01/02/17 06:25 Intake & Output 01/01/17 01/02/17 01/02/17 18:59 06:59 18:59 Intake Total 900 120 Balance 900 120 Intake: Oral 900 120 Other: # Voids 3 3 # Bowel Movements 0 Active Medications: Current Medications Acetaminophen (Tylenol) 650 mg PO Q4HR PRN PRN Reason: Mild Pain/Fever Stop: 02/14/17 13:42 Al Hydrox/Mg Hydrox/Simethicone (Maalox) 30 ml PO Q4HR PRN PRN Reason: GI DISTRESS Stop: 02/14/17 13:42 Albuterol Sulfate (Albuterol 2.5mg/3ml Neb Ud) 2.5 mg HHN Q6HR PRN PRN Reason: shortness of breath Stop: 02/14/17 13:42 Ascorbic Acid (Vitamin C) 500 mg PO DAILY [facility] Stop: 02/15/17 08:59 Last Admin: 01/02/17 08:29 Dose: 500 mg Atorvastatin Calcium (Lipitor) 10 mg PO DAILY [facility] PRN Reason: Protocol Stop: 02/15/17 08:59 Last Admin: 01/02/17 08:28 Dose: 10 mg Brimonidine Tartrate (Alphagan 0.15% Oph Soln) 1 drop EACH EYE HS [facility] Stop: 02/14/17 20:59 Last Admin: 01/01/17 21:08 Dose: 1 drop Carvedilol (Coreg) 3.125 mg PO BID [facility] Stop: 02/14/17 16:59 Last Admin: 01/02/17 08:30 Dose: 3.125 mg Clonidine HCl (Catapres) 0.1 mg PO Q4HR PRN PRN Reason: SBP ABOVE 160 Docusate Sodium (Colace) 250 mg PO DAILY PRN PRN Reason: Constipation Last Admin: 12/20/16 11:34 Dose: 250 mg Donepezil HCl (Aricept) 10 mg PO HS [facility] Stop: 02/21/17 20:59 Last Admin: 01/01/17 21:08 Dose: 10 mg Escitalopram Oxalate (Lexapro) 10 mg PO DAILY [facility] PRN Reason: Protocol Stop: 02/16/17 08:59 Last Admin: 01/02/17 08:30 Dose: 10 mg Folic Acid (Folate) 1 mg PO DAILY [facility] Stop: 02/15/17 08:59 Last Admin: 01/02/17 08:29 Dose: 1 mg Gabapentin (Neurontin) 300 mg PO DAILY [facility] Stop: 02/15/17 08:59 Last Admin: 01/02/17 08:29 Dose: 300 mg Hydrochlorothiazide (Hctz) 12.5 mg PO DAILY [facility] Stop: 02/15/17 08:59 Last Admin: 01/02/17 08:29 Dose: 12.5 mg Losartan Potassium (Cozaar) 50 mg PO DAILY [facility] Stop: 02/15/17 08:59 Last Admin: 01/02/17 08:31 Dose: Not Given Magnesium Hydroxide (Milk Of Magnesia) 30 ml PO DAILY PRN PRN Reason: Constipation Stop: 02/18/17 15:25 Last Admin: 12/21/16 06:58 Dose: 30 ml Memantine (Namenda) 5 mg PO BID [facility] Stop: 02/27/17 16:59 Last Admin: 01/02/17 08:29 Dose: 5 mg Multivitamins/Vitamin C (Theragran) 1 tab PO DAILY [facility] Stop: 02/15/17 08:59 Last Admin: 01/02/17 08:29 Dose: 1 tab Ondansetron HCl (Zofran Odt) 4 mg PO Q6H PRN PRN Reason: Nausea / Vomiting Stop: 02/14/17 14:36 Pantoprazole Sodium (Protonix) 40 mg PO DAILY [facility] Stop: 02/15/17 08:59 Last Admin: 01/02/17 08:29 Dose: 40 mg Quetiapine Fumarate (Seroquel) 25 mg PO BID [facility] PRN Reason: Protocol Stop: 02/15/17 16:59 Last Admin: 01/02/17 08:28 Dose: 25 mg Zinc Sulfate (Zinc Sulfate) 220 mg PO DAILY [facility] Stop: 02/15/17 08:59 Last Admin: 01/02/17 08:29 Dose: 220 mg General: Alert, No acute distress, no Oriented x3 HEENT: Atraumatic, PERRLA, 6, EOMI, 7, Mucous membr. moist/pink, Other, 8, 9, 10 , 11, 12, 13, 14, 15, 16, 22, 17, 23, 18, 24, 19, 20, 21 Neck: Supple, JVD, Thyromegaly, +2 carotid pulse wo bruit, LAD, Other Cardiovascular: Regular rate, Normal S1, Normal S2 Lungs: Clear to auscultation, Normal air movement Abdomen: Bowel sounds, Soft Extremities: no Clubbing, no Cyanosis, no Edema, no Pulses, no Tender, no Other Neurological: Sensation intact, Cranial nerves 3-12 NL, no Normal gait, no Strength at 5/5 X4 ext Skin: no Rash, no Breakdown, no Significant lesion, no Other Psych/Mental Status: no Mental status NL, no Mood NL - Procedures Procedures: Procedures Procedure Code Date GROUP PSYCHOTHERAPY 78130 11/07/15 GROUP PSYCHOTHERAPY GZHZZZZ 11/07/15 Assessment/Plan - Problem List Patient Problems: All Active Problems Dementia (Acute) F03.90 COPD (chronic obstructive pulmonary disease) (Acute) Diabetes mellitus (Acute) E11.9 Hypertension (Acute) I10 Schizophrenia (Acute) F20.9 - Assessment Assessment: Dementia (Acute) F03.90 Schizophrenia (Acute) F20.9 COPD (chronic obstructive pulmonary disease) (Acute) Diabetes mellitus (Acute) E11.9 Hypertension (Acute) I10 Debility - Plan Plan: * Continue current medications * Obtain labs in am * Further per psychiatry Nutritional Asmnt/Malnutr-PDOC - Dietary Evaluation Malnutrition Findings (Please click <Entered> for more info): Nutritional Asmnt/Malnutrition Start: 12/18/16 16: 05 Text: Status: Complete Freq: Document 12/18/16 16:05 RODY (Rec: 12/18/16 16:10 [email or web address]) Nutritional Asmnt/Malnutrition Patient General Information Nutritional Screening Moderate Risk Screening Diagnosis Reason for visit: psychosis Pertinent Medical Hx/Surgical Hx HTN, hyperlipidemia, dementia, TIA, constipation, psychosis, depression, schizophrenia, COPD, DM, debility Subjective Information 76 year old male. Pt transfered from [facility]. RD visited pt before at [facility] unit, pt was confused, talking to self, refusing meals. RD spoke to pt in bed eating during meal time today. Pt was pleasant, slightly confused, slightly slurred speech, however alert to answer simple questions. Most teeth intact, able to self feed, no difficulties noted. Pt denied nutritional concerns, deneid allergies, denied GI problems, requested for ice cream. Bedscale CBW 233lb. No severe wasting noted. Avg PO intake 100% of meals since adm, meeting nutritional needs. DM noted, no labs at this time, pt is not on insulin, glucose levels at [facility] 7/3: 83 7/4: 71 WNLs, will keep pt on low sodium diet and monitor is able, discussed with JOE Lamas . Current Diet Order/ Nutrition Support Low sodium Pertinent Medications Maalox, Vitamin C, Lipitor, Colace, Folate, Theragran, Zofran, Protonix, Seroquel, Zinc Sulfate Pertinent Labs No new labs. Nutritional Hx/Data Height 1.78 m Height (Calculated Centimeters) 177.8 Current Weight (lbs) 105.687 kg Weight (Calculated Kilograms) 105.7 Weight (Calculated Grams) 202962.0 [place] Body Weight 166 Weight Status Obese GI Symptoms Food Allergies No Skin Integrity/Comment: Mikhail 20. Skin intact. Current %PO Good (75-100%) Estimated Nutritional Goals Calories/Kcals/Kg IBW 166lb/75.5kg (questionable weights on EMR) Kcals Calculated 1888-2265kcal (25-30kcal/kg) Protein Calculated 76g (1g/kg) Fluid: ml 1888-2265ml (1ml/kcal) Nutritional Problem 1. Problem Problem No nutritional problem at this time. Intervention/Recommendation Comments 1. Continue with low sodium diet. Avg PO intake is adequate. 2. DM noted in H&P, no labs at this time, pt is not on insulin, glucose levels at [facility] 73: 83 7/4: 71 WNLs. Recommend monitor glucose levels. Recommend [id number] if needed. Expected Outcomes/Goals Expected Outcomes/Goals 1. PO intake to meet at least 75% of estimated nutritional needs.
--- NOTE | 2017-01-02 23:49 | Progress Notes ---
DATE: 01/02/2017 SUBJECTIVE: Case was discussed with staff of the patient, reviewed records. The patient is more stable. He is compliant with the medication, no side effects, no sedation, no nausea, no extrapyramidal symptoms, and working on discharge plan. He refused to go to [facility]. He is sleeping better, eating better. We are hoping ____, still confused, unable to make safe plan for self-care, ____ take care of his basic needs. We will continue outpatient group therapy, milieu therapy, and adjust medication as needed. JOB# [id number]
--- NOTE | 2017-01-03 08:34 | General Progress Note ---
Subjective - Review of Systems Service Date: 01/03/17 Subjective: Patient still in [facility] Unit. international bank manager working on placement. Objective - Results Result Diagrams: 12/31/16 08:20 12/31/16 08:20 Recent Labs: Laboratory Last Values WBC 6.3 Th/cmm (4.8-10.8) 12/31/16 08:20 RBC 4.99 Mil/cmm (3.80-5.80) 12/31/16 08:20 Hgb 14.7 gm/dL (12.6-17.4) 12/31/16 08:20 Hct 44.7 % (39.0-49.0) 12/31/16 08:20 MCV 89.5 fl (80-99) 12/31/16 08:20 MCH 29.4 pg (27.0-31.0) 12/31/16 08:20 MCHC Differential 32.8 pg (28.0-36.0) 12/31/16 08:20 RDW 16.5 % (11.5-20.0) 12/31/16 08:20 Plt Count 289 Th/cmm (150-400) 12/31/16 08:20 MPV 6.9 fl 12/31/16 08:20 Neutrophils % 52.7 % (40.0-80.0) 12/31/16 08:20 Band Neutrophils % 0 % (0-10) 12/19/16 06:38 Lymphocytes % 36.5 % (20.0-50.0) 12/31/16 08:20 Monocytes % 7.8 % (2.0-10.0) 12/31/16 08:20 Eosinophils % 2.8 % (0.0-5.0) 12/31/16 08:20 Basophils % 0.2 % (0.0-2.0) 12/31/16 08:20 Neutrophils (Manual) 52 % (40-80) 12/19/16 06:38 Lymphocytes 35 % (20-50) 12/19/16 06:38 Monocytes 13 % (2-10) H 12/19/16 06:38 Platelet Estimate ADEQUATE (NORMAL) 12/19/16 06:38 Sodium 135 mEq/L (136-145) L 12/31/16 08:20 Potassium 4.0 mEq/L (3.5-5.1) 12/31/16 08:20 Chloride 105 mEq/L (98-107) 12/31/16 08:20 Carbon Dioxide 29.7 mEq/L (21.0-31.0) 12/31/16 08:20 Anion Gap 4.3 (7.0-16.0) L 12/31/16 08:20 BUN 17 mg/dL (7-25) 12/31/16 08:20 Creatinine 0.8 mg/dL (0.7-1.3) 12/31/16 08:20 Est GFR ( Amer) TNP 12/31/16 08:20 Est GFR (Non-Af Amer) TNP 12/31/16 08:20 BUN/Creatinine Ratio 21.3 12/31/16 08:20 Glucose 135 mg/dL (70-105) H 12/31/16 08:20 Calcium 9.0 mg/dL (8.6-10.3) 12/31/16 08:20 - Physical Exam Vitals and I&O: Vital Signs Temp 97.6 F 01/02/17 14:00 Pulse 74 01/02/17 16:46 Resp 20 01/02/17 20:00 BP 106/68 01/02/17 16:46 Pulse Ox 98 01/02/17 14:00 Intake & Output 01/02/17 01/03/17 01/03/17 18:59 06:59 18:59 Intake Total 1200 Balance 1200 Intake: Oral 1200 Active Medications: Current Medications Acetaminophen (Tylenol) 650 mg PO Q4HR PRN PRN Reason: Mild Pain/Fever Stop: 02/14/17 13:42 Al Hydrox/Mg Hydrox/Simethicone (Maalox) 30 ml PO Q4HR PRN PRN Reason: GI DISTRESS Stop: 02/14/17 13:42 Albuterol Sulfate (Albuterol 2.5mg/3ml Neb Ud) 2.5 mg HHN Q6HR PRN PRN Reason: shortness of breath Stop: 02/14/17 13:42 Ascorbic Acid (Vitamin C) 500 mg PO DAILY [facility] Stop: 02/15/17 08:59 Last Admin: 01/02/17 08:29 Dose: 500 mg Atorvastatin Calcium (Lipitor) 10 mg PO DAILY [facility] PRN Reason: Protocol Stop: 02/15/17 08:59 Last Admin: 01/02/17 08:28 Dose: 10 mg Brimonidine Tartrate (Alphagan 0.15% Ophth Soln) 1 drop EACH EYE HS [facility] Stop: 02/14/17 20:59 Last Admin: 01/02/17 21:34 Dose: 1 drop Carvedilol (Coreg) 3.125 mg PO BID [facility] Stop: 02/14/17 16:59 Last Admin: 01/02/17 16:46 Dose: 3.125 mg Clonidine HCl (Catapres) 0.1 mg PO Q4HR PRN PRN Reason: SBP ABOVE 160 Docusate Sodium (Colace) 250 mg PO DAILY PRN PRN Reason: Constipation Last Admin: 12/20/16 11:34 Dose: 250 mg Donepezil HCl (Aricept) 10 mg PO HS [facility] Stop: 02/21/17 20:59 Last Admin: 01/02/17 21:34 Dose: 10 mg Escitalopram Oxalate (Lexapro) 10 mg PO DAILY [facility] PRN Reason: Protocol Stop: 02/16/17 08:59 Last Admin: 01/02/17 08:30 Dose: 10 mg Folic Acid (Folate) 1 mg PO DAILY [facility] Stop: 02/15/17 08:59 Last Admin: 01/02/17 08:29 Dose: 1 mg Gabapentin (Neurontin) 300 mg PO DAILY [facility] Stop: 02/15/17 08:59 Last Admin: 01/02/17 08:29 Dose: 300 mg Hydrochlorothiazide (Hctz) 12.5 mg PO DAILY [facility] Stop: 02/15/17 08:59 Last Admin: 01/02/17 08:29 Dose: 12.5 mg Losartan Potassium (Cozaar) 50 mg PO DAILY [facility] Stop: 02/15/17 08:59 Last Admin: 01/02/17 08:31 Dose: Not Given Magnesium Hydroxide (Milk Of Magnesia) 30 ml PO DAILY PRN PRN Reason: Constipation Stop: 02/18/17 15:25 Last Admin: 12/21/16 06:58 Dose: 30 ml Memantine (Namenda) 5 mg PO BID [facility] Stop: 02/27/17 16:59 Last Admin: 01/02/17 16:46 Dose: 5 mg Multivitamins/Vitamin C (Theragran) 1 tab PO DAILY [facility] Stop: 02/15/17 08:59 Last Admin: 01/02/17 08:29 Dose: 1 tab Ondansetron HCl (Zofran Odt) 4 mg PO Q6H PRN PRN Reason: Nausea / Vomiting Stop: 02/14/17 14:36 Pantoprazole Sodium (Protonix) 40 mg PO DAILY [facility] Stop: 02/15/17 08:59 Last Admin: 01/02/17 08:29 Dose: 40 mg Quetiapine Fumarate (Seroquel) 25 mg PO BID [facility] PRN Reason: Protocol Stop: 02/15/17 16:59 Last Admin: 01/02/17 16:46 Dose: 25 mg Zinc Sulfate (Zinc Sulfate) 220 mg PO DAILY [facility] Stop: 02/15/17 08:59 Last Admin: 01/02/17 08:29 Dose: 220 mg General: Alert, Oriented x3, No acute distress HEENT: Atraumatic, PERRLA, 6, EOMI, 7, Mucous membr. moist/pink, Other, 8, 9, 10 , 11, 12, 13, 14, 15, 16, 22, 17, 23, 18, 24, 19, 20, 21 Neck: Supple, JVD, Thyromegaly, +2 carotid pulse wo bruit, LAD, Other Cardiovascular: Regular rate, Normal S1, Normal S2 Lungs: Clear to auscultation, Normal air movement Abdomen: Bowel sounds, Soft Extremities: no Clubbing, no Cyanosis, no Edema, no Pulses, no Tender, no Other Neurological: Sensation intact, Cranial nerves 3-12 NL, no Normal gait, no Strength at 5/5 X4 ext Skin: no Rash, no Breakdown, no Significant lesion, no Other Psych/Mental Status: no Mental status NL, no Mood NL - Procedures Procedures: Procedures Procedure Code Date GROUP PSYCHOTHERAPY 50358 11/07/15 GROUP PSYCHOTHERAPY [id number] 11/07/15 Assessment/Plan - Problem List Patient Problems: All Active Problems Dementia (Acute) F03.90 COPD (chronic obstructive pulmonary disease) (Acute) Diabetes mellitus (Acute) E11.9 Hypertension (Acute) I10 Schizophrenia (Acute) F20.9 - Assessment Assessment: Dementia (Acute) F03.90 Schizophrenia (Acute) F20.9 COPD (chronic obstructive pulmonary disease) (Acute) Diabetes mellitus (Acute) E11.9 Hypertension (Acute) I10 Debility - Plan Plan: * Continue current medications * Obtain labs on Thursday * Further per psychiatry Nutritional Asmnt/Malnutr-PDOC - Dietary Evaluation Malnutrition Findings (Please click <Entered> for more info): Nutritional Asmnt/Malnutrition Start: 12/18/16 16: 05 Text: Status: Complete Freq: Document 12/18/16 16:05 RODY (Rec: 12/18/16 16:10 [id number]) Nutritional Asmnt/Malnutrition Patient General Information Nutritional Screening Moderate Risk Screening Diagnosis Reason for visit: psychosis Pertinent Medical Hx/Surgical Hx HTN, hyperlipidemia, dementia, TIA, constipation, psychosis, depression, schizophrenia, COPD, DM, debility Subjective Information 76 year old male. Pt transfered from [facility]. RD visited pt before at [facility] unit, pt was confused, talking to self, refusing meals. RD spoke to pt in bed eating during meal time today. Pt was pleasant, slightly confused, slightly slurred speech, however alert to answer simple questions. Most teeth intact, able to self feed, no difficulties noted. Pt denied nutritional concerns, deneid allergies, denied GI problems, requested for ice cream. Bedscale CBW 233lb. No severe wasting noted. Avg PO intake 100% of meals since adm, meeting nutritional needs. DM noted, no labs at this time, pt is not on insulin, glucose levels at [facility] 73: 83 7/4: 71 WNLs, will keep pt on low sodium diet and monitor is able, discussed with JOE Lamas . Current Diet Order/ Nutrition Support Low sodium Pertinent Medications Maalox, Vitamin C, Lipitor, Colace, Folate, Theragran, Zofran, Protonix, Seroquel, Zinc Sulfate Pertinent Labs No new labs. Nutritional Hx/Data Height 1.78 m Height (Calculated Centimeters) 177.8 Current Weight (lbs) 105.687 kg Weight (Calculated Kilograms) 105.7 Weight (Calculated Grams) 463633.0 [place] Body Weight 166 Weight Status Obese GI Symptoms Food Allergies No Skin Integrity/Comment: Mikhail 20. Skin intact. Current %PO Good (75-100%) Estimated Nutritional Goals Calories/Kcals/Kg IBW 166lb/75.5kg (questionable weights on EMR) Kcals Calculated 1888-2265kcal (25-30kcal/kg) Protein Calculated 76g (1g/kg) Fluid: ml 1888-2265ml (1ml/kcal) Nutritional Problem 1. Problem Problem No nutritional problem at this time. Intervention/Recommendation Comments 1. Continue with low sodium diet. Avg PO intake is adequate. 2. DM noted in H&P, no labs at this time, pt is not on insulin, glucose levels at [facility] 7/3: 83 7/4: 71 WNLs. Recommend monitor glucose levels. Recommend [id number] if needed. Expected Outcomes/Goals Expected Outcomes/Goals 1. PO intake to meet at least 75% of estimated nutritional needs.
[2017-01-03] MEDS: Pantoprazole 40 mg EC Tab PO SCH (09:16)
[2017-01-03] MEDS: Atorvastatin Calcium 10 MG TAB PO SCH (09:16)
[2017-01-03] MEDS: Multivitamin Tab PO SCH (09:17)
[2017-01-03] MEDS: Venelex 60gm Tube TP SCH (09:19)
--- NOTE | 2017-01-03 18:28 | Discharge Summary ---
DATE OF DISCHARGE: 01/03/2017 FINAL DIAGNOSES/PRIMARY DIAGNOSES: Depressive disorder with psychosis. HOSPITAL COURSE: The patient was depressed and anxious. The patient also was withdrawn and interacted minimally with others. The patient was also at times seems to be confused. The patient's son of the hospital, but the patient was not suicidal or homicidal, and was cooperative with his treatment and with his medications. The patient left against medical advice. PHYSICAL EXAMINATION: Basically within normal and the patient had no major medical problems while in the hospital. AFTER DISCHARGE PLANS: The patient discharged from the hospital and left against medical advice with his son. EXPECTED OUTCOME AFTER DISCHARGE: Guarded because the patient has left prior to completing his treatment. [facility]# [id number]
== END 2017-01-03 12:50 | disposition home or self-care (01) | DRG 884 ==
LOC: GERO 11:47
PROVIDERS: ADMIT Psychiatry & Neurology Psychiatry; ATTEND Psychiatry & Neurology Psychiatry
DX: F03.90 Unspecified dementia, unspecified severity, without behavioral disturbance, psychotic disturbance, mood disturbance, and anxiety (principal); J44.9 Chronic obstructive pulmonary disease, unspecified; E11.9 Type 2 diabetes mellitus without complications; F29 Unspecified psychosis not due to a substance or known physiological condition; I10 Essential (primary) hypertension; E78.5 Hyperlipidemia, unspecified; F32.9 Major depressive disorder, single episode, unspecified; F20.9 Schizophrenia, unspecified; Z86.73 Personal history of transient ischemic attack (TIA), and cerebral infarction without residual deficits; Z79.84 Long term (current) use of oral hypoglycemic drugs
CPT/HCPCS: 36415-UA; 80048-TC; 85007-TC; 85025-TC; 85027-TC; 90732; 94760; 97530; X3904; Z7610